=== PATIENT | female | born 1965 | race Caucasian/White ===

== ENCOUNTER → 2016-11-22 | Outpatient (CLI) | payer BC ==
--- NOTE | 2016-11-26 07:14 | MM ---
Reason for exam: screening (asymptomatic). Last mammogram was performed 1 year and 9 months ago. Physical Findings: A clinical breast exam by your physician is recommended on an annual basis and results should be correlated with mammographic findings. MG Screening Mammo w CAD Bilateral CC and MLO view(s) were taken. Prior study comparison: February 18, 2015, bilateral MG screening mammo w CAD. January 14, 2014, bilateral digital screening mammo w/CAD. October 23, 2011, bilateral digital screening mammo w/CAD. The breast tissue is heterogeneously dense. This may lower the sensitivity of mammography. Previous mammotome biopsy in the left breast. No significant changes when compared with prior studies. ASSESSMENT: Negative, BI-RAD 1 RECOMMENDATION: Routine screening mammogram of both breasts in 1 year.
== END | disposition home or self-care (01) ==
LOC: RADMAMWWP 16:03
PROVIDERS: ATTEND Family Medicine
DX: Z12.31 Encounter for screening mammogram for malignant neoplasm of breast (principal)

== ENCOUNTER → 2018-03-18 | Outpatient (CLI) | payer BC | END | disposition home or self-care (01) | LOC: LABWHC1 16:43 | PROVIDERS: ATTEND Family Medicine | DX: R53.83 Other fatigue (principal) | CPT/HCPCS: 36415; 84482; 86376 ==

== ENCOUNTER → 2018-04-18 | Outpatient (CLI) | payer BC ==
--- NOTE | 2018-04-18 09:18 | US ---
EXAMINATION TYPE: US transvaginal DATE OF EXAM: 04/18/2018 COMPARISON: NONE CLINICAL HISTORY: R10.9 abdominal pain, R10.2 pelvic pain. TECHNIQUE: . Transvaginal sonographic images were acquired. Date of LMP: About 8 months ago EXAM MEASUREMENTS: Uterus: 9.7 x 5.6 x 5.7 cm Endometrial Stripe: 0.6 cm Right Ovary: 3.9 x 2.3 x 2.3 cm Left Ovary: 2.7 x 2.1 x 1.9 cm 1. Uterus: Anteverted Heterogeneous. Two probable well-circumscribed fibroids, largest measuring 2 .4 x 2.1 x 1.7 cm. Additional smaller leiomyomas are suspected that are less well circumscribed. 2. Endometrium: wnl 3. Right Ovary: Two follicles visualized, largest measuring 2.0 x 1.7 x 1.5 cm 4. Left Ovary: Partially obscured by bowel gas, visualized portions wnl 5. Bilateral Adnexa: wnl 6. Posterior cul-de-sac: wnl IMPRESSION: 1. No endometrial thickening. 2. Numerous uterine leiomyomas, the largest measuring 2.4 cm and appearing intramural.
--- NOTE | 2018-04-18 09:45 | US ---
EXAMINATION TYPE: US abdomen complete DATE OF EXAM: 04/18/2018 COMPARISON: NONE CLINICAL HISTORY: R10.9 abdominal pain, R10.2 pelvic pain. EXAM MEASUREMENTS: Liver Length: 14.2 cm Gallbladder Wall: 0.2 cm CBD: 0.6 cm Spleen: 6.6 cm Right Kidney: 10.3 x 4.3 x 6.2 cm Left Kidney: 11.3 x 5.2 x 4.9 cm Pancreas: Partially obscured by bowel gas, visualized portions appear wnl Liver: wnl Gallbladder: wnl Evidence for sonographic Moon's sign: No CBD: Measuring upper limits of normal. Spleen: wnl Right Kidney: No hydronephrosis or masses seen Left Kidney: No hydronephrosis or masses seen Upper IVC: wnl Abd Aorta: wnl The liver is homogenous. The intrahepatic portion of the IVC and proximal abdominal aorta are within normal limits. There is no evidence of cholelithiasis. Common bile duct is measuring upper limits of normal. The visualized portions of the pancreas are homogenous. The spleen is unremarkable. Kid neys are symmetric and free of hydronephrosis. No renal lesions are seen. IMPRESSION: No sonographic evidence of cholelithiasis or acute cholecystitis. Common bile duct is upp er limits of normal and HIDA scan could be performed with CCK if there is clinical concern for biliar y dyskinesia or chronic cholecystitis.
--- NOTE | 2018-04-22 07:08 | MM ---
Reason for exam: screening (asymptomatic). Last mammogram was performed 1 year and 5 months ago. Physical Findings: A clinical breast exam by your physician is recommended on an annual basis and results should be correlated with mammographic findings. MG 3D Screening Mammo W/Cad Bilateral CC and MLO view(s) were taken. Prior study comparison: November 22, 2016, bilateral MG screening mammo w CAD. February 18, 2015, bilateral MG screening mammo w CAD. The breast tissue is heterogeneously dense. This may lower the sensitivity of mammography. There is chronic nodularity bilaterally. There is no discrete abnormality. ASSESSMENT: Benign, BI-RAD 2 RECOMMENDATION: Routine screening mammogram of both breasts in 1 year.
== END | disposition home or self-care (01) ==
LOC: RADUSWWP 06:51
PROVIDERS: ATTEND Family Medicine
DX: Z12.31 Encounter for screening mammogram for malignant neoplasm of breast (principal); D25.9 Leiomyoma of uterus, unspecified; R10.9 Unspecified abdominal pain
CPT/HCPCS: 76700; 76830; 77063; 77067

== ENCOUNTER → 2018-05-24 | Outpatient (CLI) | payer BC ==
[2018-05-24 11:30] LABS: ALT 46 U/L (9-52); AST 28 U/L (14-36); Albumin 4.2 g/dL (3.5-5.0); Alkaline Phosphatase 52 U/L (38-126); Anion Gap 7 mmol/L; Blood Urea Nitrogen 10 mg/dL (7-17); Carbon Dioxide 24 mmol/L (22-30); Chloride 109 mmol/L (98-107); Glucose 104 mg/dL (74-99); Potassium 4.8 mmol/L (3.5-5.1); Sodium 140 mmol/L (137-145); Total Bilirubin 0.3 mg/dL (0.2-1.3); Total Protein 6.5 g/dL (6.3-8.2)
[2018-05-24 11:57] LABS: Basophils % (A) 0 %; Eosinophils # (A) 0.1 k/uL (0-0.7); Eosinophils % (A) 1 %; HCT 43.9 % (34.0-46.0); HGB 14.7 gm/dL (11.4-16.0); Lymphocytes # (A) 1.6 k/uL (1.0-4.8); Lymphocytes % (A) 16 %; MCH 31.5 pg (25.0-35.0); MCHC 33.4 g/dL (31.0-37.0); MCV 94.4 fL (80.0-100.0); Mean Platelet Volume 7.3; Monocytes # (A) 0.4 k/uL (0-1.0); Monocytes % (A) 4 %; Neutrophils # (A) 7.5 k/uL (1.3-7.7); Neutrophils % (A) 78 %; Platelet Count 249 k/uL (150-450); RBC 4.65 m/uL (3.80-5.40); RDW 13.3 % (11.5-15.5); WBC 9.7 k/uL (3.8-10.6)
[2018-05-24 17:06] LABS: Progesterone 0.6 ng/mL
== END | disposition home or self-care (01) ==
LOC: LABWHC1 10:39
PROVIDERS: ATTEND Family Medicine
DX: N92.6 Irregular menstruation, unspecified (principal)
CPT/HCPCS: 36415; 80053; 82672; 84144; 84146; 85025

== ENCOUNTER 2019-09-22 17:23 | Emergency (ER) | payer BC ==
[2019-09-22] MEDS ORDERED: SODIUM CHLORIDE 0.9% 1,000 ML IV ONE (17:55)
--- NOTE | 2019-09-22 17:59 | ED ---
Abdominal Pain HPI - General Chief Complaint: Abdominal Pain Stated Complaint: Poss bowel obstruction Time Seen by Provider: 09/22/19 17:35 Source: patient Mode of arrival: ambulatory Limitations: no limitations - History of Present Illness Initial Comments: 54-year-old female presenting for constipation x 3 weeks. Patient states that she has been constipated for 3 weeks. She states she has only had a small amount of stool approximately 3 days ago. Patient denies vomiting. Patient states she has abdominal pressure and distention. Patient states she is also struggling with chronic low back pain. She states she had an injection today of a corticosteroid in order to control the pain. Patient denies taking opioids for chronic pain. Denies falls. Patient states she is not drinking any water today and has not urinated. Patient denies any changes in urination prior to this. Patient has a weakness of the lower extremities or loss of sensation. Patient denies any loss of bowel control, IV drug use, or fevers. Patient denies upper abdominal pain. Patient denies any other complaints, denies chest pain shortness of breath. Upon arrival patient appears well no signs of acute distress. - Related Data Previous Rx's Medication Instructions Recorded Glycerin Adult Suppository 1 each RECTAL DAILY PRN 5 Days #5 09/22/19 supp Polyethylene Glycol 3350 [Miralax] 17 gm PO DAILY 7 Days #7 packet 09/22/19 Allergies Allergy/AdvReac Type Severity Reaction Status Date / Time codeine Allergy Confusion Verified 09/22/19 17:33 tetracycline Allergy Anaphylaxis Verified 09/22/19 17:33 Review of Systems ROS Statement: Those systems with pertinent positive or pertinent negative responses have been documented in the HPI. ROS Other: All systems not noted in ROS Statement are negative. Past Medical History Past Medical History: No Reported History History of Any Multi-Drug Resistant Organisms: None Reported Past Surgical History: Tonsillectomy Additional Past Surgical History / Comment(s): sinus surgery Past Psychological History: No Psychological Hx Reported Smoking Status: Former smoker Past Alcohol Use History: None Reported Past Drug Use History: None Reported General Exam - General Exam Comments Initial Comments: General: The patient is awake and alert, in no distress. Eye: Pupils are equal, round and reactive to light, extra-ocular movements are intact. No nystagmus. There is normal conjunctiva bilaterally. No signs of icterus. Ears, nose, mouth and throat: There are moist mucous membranes and no oral lesions. Neck: The neck is supple, there is no tenderness or JVD. Cardiovascular: There is a regular rate and rhythm. No murmur, rub or gallop is appreciated. Respiratory: Lungs are clear to auscultation, respirations are non-labored, breath sounds are equal. No wheezes, stridor, rales, or rhonchi. Gastrointestinal: Mild abdominal distention with diffuse mild abdominal pain abdomen without masses or organomegaly noted. There is no rebound or guarding present. No CVA tenderness. Bowel sounds are unremarkable, active. Normal rectal tone no stool ball appreciated on rectal exam. No blood. Musculoskeletal: Normal inspection of the cervical thoracic and lumbar spine. No redness. No midline tenderness. Normal ROM, no tenderness. Strength 5/5. Sensation intact. Radial pulses equal bilaterally 2+. Neurological: A&O x 3. CN II-XII intact grossly, There are no obvious motor or sensory deficits. Coordination appears grossly intact. Speech is normal. Skin: Skin is warm and dry and no rashes or lesions are noted. Psychiatric: Cooperative, appropriate mood & affect, normal judgment. Limitations: no limitations Course Vital Signs 09/22/19 09/22/19 17:27 20:11 Temperature 99.2 F Pulse Rate 120 H 95 Respiratory 18 18 Rate Blood Pressure 152/96 138/80 O2 Sat by Pulse 96 99 Oximetry Medical Decision Making - Medical Decision Making 54-year-old female presenting for constipation. No large bowel movement in 3 weeks. Patient significant stool retention on KUB no obstruction. Patient has no history of vomiting. Patient does not appear to have acute abdomen. Laboratory studies stable there is mild leukocytosis noted. Patient is given 3 enemas- per request with BM with last two. Patient has no blood in stool. Patient requesting discharge. Patient will be discharged with miralax and glycerine suppositories. Discussed increasing fluids and dietary fiber. Patient is to f/u with PCP as well as obtain a solar thermal technician as seen fit by PCP. Re turn parameters discussed. Patient verbalized understanding and was discharged appearing well. - Lab Data Result diagrams: 09/22/19 17:47 09/22/19 17:47 Lab Results 09/22/19 09/22/19 09/22/19 Range/Units 17:47 17:47 17:47 WBC 14.0 H (3.8-10.6) k/uL RBC 4.89 (3.80-5.40) m/uL Hgb 15.8 (11.4-16.0) gm/dL Hct 45.4 (34.0-46.0) % MCV 92.8 (80.0-100.0) fL MCH 32.3 (25.0-35.0) pg MCHC 34.8 (31.0-37.0) g/dL RDW 12.5 (11.5-15.5) % Plt Count 237 (150-450) k/uL Neutrophils % 80 % Lymphocytes % 12 % Monocytes % 6 % Eosinophils % 0 % Basophils % 0 % Neutrophils # 11.2 H (1.3-7.7) k/uL Lymphocytes # 1.7 (1.0-4.8) k/uL Monocytes # 0.8 (0-1.0) k/uL Eosinophils # 0.0 (0-0.7) k/uL Basophils # 0.1 (0-0.2) k/uL Sodium 137 (137-145) mmol/L Potassium 4.1 (3.5-5.1) mmol/L Chloride 99 (98-107) mmol/L Carbon Dioxide 31 H (22-30) mmol/L Anion Gap 7 mmol/L BUN 15 (7-17) mg/dL Creatinine 0.80 (0.52-1.04) mg/dL Est GFR (CKD-EPI)AfAm >90 (>60 ml/min/1.73 sqM) Est GFR (CKD-EPI)NonAf 85 (>60 ml/min/1.73 sqM) Glucose 139 H (74-99) mg/dL Plasma Lactic Acid Reuben 1.1 (0.7-2.0) mmol/L Calcium 10.5 H (8.4-10.2) mg/dL Total Bilirubin 0.8 (0.2-1.3) mg/dL AST 33 (14-36) U/L ALT 46 (9-52) U/L Alkaline Phosphatase 72 (38-126) U/L Total Protein 7.8 (6.3-8.2) g/dL Albumin 4.9 (3.5-5.0) g/dL Amylase 46 (30-110) U/L Lipase 138 (23-300) U/L Urine Color Urine Appearance (Clear) Urine pH (5.0-8.0) Ur Specific [place] (1.001-1.035) Urine Protein (Negative) Urine Glucose (UA) (Negative) Urine Ketones (Negative) Urine Blood (Negative) Urine Nitrite (Negative) Urine Bilirubin (Negative) Urine Urobilinogen (<2.0) mg/dL Ur Leukocyte Esterase (Negative) 09/22/19 Range/Units 18:11 WBC (3.8-10.6) k/uL RBC (3.80-5.40) m/uL Hgb (11.4-16.0) gm/dL Hct (34.0-46.0) % MCV (80.0-100.0) fL MCH (25.0-35.0) pg MCHC (31.0-37.0) g/dL RDW (11.5-15.5) % Plt Count (150-450) k/uL Neutrophils % % Lymphocytes % % Monocytes % % Eosinophils % % Basophils % % Neutrophils # (1.3-7.7) k/uL Lymphocytes # (1.0-4.8) k/uL Monocytes # (0-1.0) k/uL Eosinophils # (0-0.7) k/uL Basophils # (0-0.2) k/uL Sodium (137-145) mmol/L Potassium (3.5-5.1) mmol/L Chloride (98-107) mmol/L Carbon Dioxide (22-30) mmol/L Anion Gap mmol/L BUN (7-17) mg/dL Creatinine (0.52-1.04) mg/dL Est GFR (CKD-EPI)AfAm (>60 ml/min/1.73 sqM) Est GFR (CKD-EPI)NonAf (>60 ml/min/1.73 sqM) Glucose (74-99) mg/dL Plasma Lactic Acid Reuben (0.7-2.0) mmol/L Calcium (8.4-10.2) mg/dL Total Bilirubin (0.2-1.3) mg/dL AST (14-36) U/L ALT (9-52) U/L Alkaline Phosphatase (38-126) U/L Total Protein (6.3-8.2) g/dL Albumin (3.5-5.0) g/dL Amylase (30-110) U/L Lipase (23-300) U/L Urine Color Colorless Urine Appearance Clear (Clear) Urine pH 6.5 (5.0-8.0) Ur Specific [place] 1.003 (1.001-1.035) Urine Protein Negative (Negative) Urine Glucose (UA) Negative (Negative) Urine Ketones Negative (Negative) Urine Blood Negative (Negative) Urine Nitrite Negative (Negative) Urine Bilirubin Negative (Negative) Urine Urobilinogen <2.0 (<2.0) mg/dL Ur Leukocyte Esterase Negative (Negative) Disposition Clinical Impression: Constipation Disposition: HOME SELF-CARE Condition: Good Instructions (If sedation given, give patient instructions): Constipation (ED), High Fiber Diet (ED) Additional Instructions: Please use medication as discussed. Please follow-up with family doctor in the next 2 days of symptoms have not improved. Please return to emergency room if the symptoms increase or worsen or for any other concerns. Prescriptions: Glycerin Adult Suppository 1 each RECTAL DAILY PRN 5 Days #5 supp PRN Reason: Constipation Polyethylene Glycol 3350 [Miralax] 17 gm PO DAILY 7 Days #7 packet Is patient prescribed a controlled substance at d/c from ED?: No Referrals: Stephany Winter MD [Primary Care Provider] - 1-2 days Time of Disposition: 22:41
[2019-09-22 18:00] LABS: Basophils # (A) 0.1 k/uL (0-0.2); Basophils % (A) 0 %; Eosinophils % (A) 0 %; HCT 45.4 % (34.0-46.0); HGB 15.8 gm/dL (11.4-16.0); Lymphocytes # (A) 1.7 k/uL (1.0-4.8); Lymphocytes % (A) 12 %; MCH 32.3 pg (25.0-35.0); MCHC 34.8 g/dL (31.0-37.0); MCV 92.8 fL (80.0-100.0); Mean Platelet Volume 6.7; Monocytes # (A) 0.8 k/uL (0-1.0); Monocytes % (A) 6 %; Neutrophils # (A) 11.2 k/uL (1.3-7.7); Neutrophils % (A) 80 %; Platelet Count 237 k/uL (150-450); RBC 4.89 m/uL (3.80-5.40); RDW 12.5 % (11.5-15.5)
[2019-09-22] MEDS ORDERED: SODIUM CHLORIDE 0.9% 1,000 ML IV SCH (18:00)
[2019-09-22 18:11] LABS: ALT 46 U/L (9-52); AST 33 U/L (14-36); African American GFR (CKD) >90 (>60 ml/min/1.73 sqM); Albumin 4.9 g/dL (3.5-5.0); Alkaline Phosphatase 72 U/L (38-126); Amylase 46 U/L (30-110); Anion Gap 7 mmol/L; Blood Urea Nitrogen 15 mg/dL (7-17); Calcium 10.5 mg/dL (8.4-10.2); Carbon Dioxide 31 mmol/L (22-30); Chloride 99 mmol/L (98-107); Glucose 139 mg/dL (74-99); Potassium 4.1 mmol/L (3.5-5.1); Sodium 137 mmol/L (137-145); Total Bilirubin 0.8 mg/dL (0.2-1.3); Total Protein 7.8 g/dL (6.3-8.2)
[2019-09-22 18:32] LABS: Appearance,Urine Clear (Clear); Bilirubin,Urine Negative (Negative); Blood,Urine Negative (Negative); Color,Urine Colorless; Glucose,Urine (UA) Negative (Negative); Ketones,Urine Negative (Negative); Leukocyte Esterase,Urine Negative (Negative); Nitrite,Urine Negative (Negative); PH, Urine 6.5 (5.0-8.0); Protein,Urine Negative (Negative); Specific Gravity,Urine 1.003 (1.001-1.035); Urobilinogen,Urine <2.0 mg/dL (<2.0)
--- NOTE | 2019-09-22 19:16 | XR ---
EXAMINATION TYPE: XR KUB views DATE OF EXAM: 09/22/2019 6:03 PM CLINICAL HISTORY: No bowel movement for 3 days TECHNIQUE: 2 upright views COMPARISON: None. FINDINGS: Scattered gas is seen in non-distended small bowel loops. Gas and fecal material is seen in non-distended colon. Excessive descending and sigmoid stool volume noted. There is no visceromegaly, pneumoperitoneum, or abnormal calcification appreciated. The lung bases are clear and the osseous structures are intact. IMPRESSION: No acute radiographic process.
[2019-09-22] MEDS ORDERED: MORPHINE SULFATE 4 MG/ML SYRINGE IVP STA (20:25)
[2019-09-22 23:09] VITALS: BP 132/71; PULSE 79; RESP 19; TEMP 97.9
== END 2019-09-22 23:09 | disposition home or self-care (01) ==
LOC: EC 17:23
DX: K59.00 Constipation, unspecified (principal); D72.829 Elevated white blood cell count, unspecified; G89.29 Other chronic pain; M54.5 Low back pain; Z87.891 Personal history of nicotine dependence; Z88.1 Allergy status to other antibiotic agents; Z88.5 Allergy status to narcotic agent
CPT/HCPCS: 36415; 80053; 82150; 83605; 83690; 85025; 81003; 74018; 99284; 96374; 96361 ×5; J2270

== ENCOUNTER 2019-09-24 08:52 | Emergency (ER) | payer BC ==
[2019-09-24 08:58] VITALS: TEMP 99.1
[2019-09-24 09:11] LABS: Glucose,Whole Blood 159 mg/dL (75-99)
[2019-09-24] MEDS ORDERED: diphenhydrAMINE 50 MG/ML 1 ML VIAL IM STA (09:13)
[2019-09-24] MEDS ORDERED: FAMOTIDINE 20 MG TAB PO STA (09:13)
[2019-09-24] MEDS ORDERED: LORazepam 1 MG TAB PO STA ×2 (09:13→10:37)
--- NOTE | 2019-09-24 09:17 | ED ---
General Adult HPI - General Chief complaint: Allergic Reaction Stated complaint: Hyperglycemia Time Seen by Provider: 09/24/19 08:59 Source: patient, RN notes reviewed Mode of arrival: ambulatory Limitations: no limitations - History of Present Illness Initial comments: 54-year-old female presents to the emergency department for ALLERGIC reaction. Patient states that over the past 2 days she was sinus constipation. States she was started on MiraLAX. Patient also had received an injection of steroids prior to coming to the emergency department for a pinched nerve. Patient states that since she has received the MiraLAX in the steroids she has had burning of her skin. States that she feels like she has a dry tongue but denies swelling. Says is she has had hives on and off. Patient is very anxious. She denies fevers or chills. She denies abdominal pain. Patient has no other complaints at this time including shortness of breath, chest pain, abdominal pain, nausea or vomiting, headache, or visual changes. - Related Data Home Medications Medication Instructions Recorded Confirmed Calcium Carbonate [Calcium] 600 mg PO DAILY 09/24/19 09/24/19 Ibuprofen [Motrin Ib] 600 mg PO TID PRN 09/24/19 09/24/19 Magnesium 200 mg PO HS 09/24/19 09/24/19 [place]-3 Fatty Acids/Fish Oil [Fish 1 cap PO DAILY 09/24/19 09/24/19 Oil 1,000 mg Softgel] Previous Rx's Medication Instructions Recorded Nystatin 100,000 Unit/ml Susp 5 ml PO QID #100 ml 09/24/19 [Mycostatin Oral Susp] Allergies Allergy/AdvReac Type Severity Reaction Status Date / Time tetracycline Allergy Anaphylaxis Verified 09/24/19 10:34 codeine AdvReac Confusion Verified 09/24/19 10:34 Review of Systems ROS Statement: Those systems with pertinent positive or pertinent negative responses have been documented in the HPI. ROS Other: All systems not noted in ROS Statement are negative. Past Medical History Past Medical History: No Reported History History of Any Multi-Drug Resistant Organisms: None Reported Past Surgical History: Tonsillectomy Additional Past Surgical History / Comment(s): sinus surgery Past Psychological History: No Psychological Hx Reported Smoking Status: Former smoker Past Alcohol Use History: None Reported Past Drug Use History: None Reported General Exam Limitations: no limitations General appearance: alert, anxious Head exam: Present: atraumatic, normocephalic, normal inspection Eye exam: Present: normal appearance, PERRL, EOMI. Absent: scleral icterus, conjunctival injection, periorbital swelling ENT exam: Present: normal exam, normal oropharynx (Tongue appears within normal limits. There is some white plaque on the dorsum of the tongue.), mucous membranes moist, TM's normal bilaterally, normal external ear exam Neck exam: Present: normal inspection. Absent: tenderness, meningismus, lymphadenopathy Respiratory exam: Present: normal lung sounds bilaterally. Absent: respiratory distress, wheezes, rales, rhonchi, stridor Cardiovascular Exam: Present: regular rate, normal rhythm, normal heart sounds. Absent: systolic murmur, diastolic murmur, rubs, gallop, clicks GI/Abdominal exam: Present: soft, normal bowel sounds. Absent: distended, tenderness, guarding, rebound, rigid Neurological exam: Present: alert Skin exam: Present: warm, dry, intact, normal color. Absent: rash Course Vital Signs 09/24/19 08:53 Temperature 99.1 F Pulse Rate 110 H Respiratory 18 Rate Blood Pressure 149/95 O2 Sat by Pulse 98 Oximetry Medical Decision Making - Medical Decision Making Upon presentation patient is very anxious. She is appearing to have possibly an ALLERGIC reaction for MiraLAX and she has had burning skin since taking this as well as dry mucous membranes. States this has been going on consistently for 3 days. Patient initially uncooperative to medications offered. I did offer Benadryl, she initially refused stating this makes her mouth dry. She states Claritin also makes her mouth dry. She stated she did not want Pepcid she had never had before. Stated she did not want steroids because she had that 2 days ago. I discussed with patient that to help her ALLERGIC reaction and we'll need to give her something. Patient does agree to Benadryl if we allow her to drink water with this. She also agrees to Pepcid. Due to patient's anxiety and shaking in the exam room she was given Ativan which she agreed to. Patient was also concerned about hyperglycemia. Checked her blood sugar at home which was 204. On recheck here to the emergency department glucose is 159. When given her medications patient states that the cold water made her esophagus spasm and she is concerned about her breathing. I did do soft tissue neck x-ray which was unremarkable, no abnormalities. I did a chest x-ray as well which was unremarkable. Patient is stating she can't swallow without coughing however is noted to be lying flat swallowing saliva without any difficulty. Patient is very anxious. I suspect that this is contributing to her physical symptoms. However patient does have some white on the tongue. Patient will be treated with a nystatin for possible early thrush. Again there is no angioedema or evidence of edema of the tongue. Patient is nontoxic on examination. Patient is requesting discharge and medication to help her sleep when she gets home. I did explain to patient that I cannot give a prescription for sleeping pills however I will give her another Ativan here. is driving her home. There is no evidence for respiratory distress, patient lying flat resting comfortably, and no evidence for angioedema or anaphylaxis. Patient has an appointment with her primary care provider tomorrow. She will return if she has any worsening symptoms prior to then. - Lab Data Lab Results 09/24/19 Range/Units 09:09 POC Glucose (mg/dL) 159 H (75-99) mg/dL POC Glu Hot Dog Vendor ID Arline Beltran Disposition Clinical Impression: Allergic reaction Disposition: HOME SELF-CARE Condition: Good Instructions (If sedation given, give patient instructions): General Allergic Reaction (ED) Additional Instructions: Please use nystatin as directed. Follow up with primary care in 1-2 days. Ret urn to the emergency department if you have any worsening symptoms. Prescriptions: Nystatin 100,000 Unit/ml Susp [Mycostatin Oral Susp] 5 ml PO QID #100 ml Is patient prescribed a controlled substance at d/c from ED?: No Referrals: Stephany Winter MD [Primary Care Provider] - 1-2 days Time of Disposition: 10:41
--- NOTE | 2019-09-24 10:21 | XR ---
EXAMINATION TYPE: XR soft tissue neck DATE OF EXAM: 09/24/2019 COMPARISON: NONE HISTORY: 54 year-old female shortness of breath and pain TECHNIQUE: 2 views FINDINGS: Epiglottis is normal as are the prevertebral soft tissues. Nasal pharyngeal and oropharyngeal airways are patent. No subglottic airway narrowing. IMPRESSION: No specific abnormality seen on the soft tissues of the neck.
--- NOTE | 2019-09-24 10:22 | XR ---
EXAMINATION TYPE: XR chest 2V DATE OF EXAM: 09/24/2019 COMPARISON: None HISTORY: 54-year-old female with shortness of breath TECHNIQUE: PA and lateral views FINDINGS: The cardiomediastinal silhouette, aorta, and pulmonary vasculature are within normal limits. There ma y be some mild central peribronchial cuffing. Mild biapical pleural-parenchymal scarring. Otherwise, lungs and pleural spaces are clear. IMPRESSION: Mild central peribronchial cuffing may reflect bronchitis or asthma. Otherwise, no acute cardiopulmon anyi process.
[2019-09-24 11:12] VITALS: BP 136/76; PULSE 81; RESP 16
== END 2019-09-24 11:10 | disposition home or self-care (01) ==
LOC: EC 08:52
DX: L98.8 Other specified disorders of the skin and subcutaneous tissue (principal); T47.4X5A Adverse effect of other laxatives, initial encounter; T38.0X5A Adverse effect of glucocorticoids and synthetic analogues, initial encounter; K13.29 Other disturbances of oral epithelium, including tongue; F41.9 Anxiety disorder, unspecified; L50.9 Urticaria, unspecified; Z87.891 Personal history of nicotine dependence; Z88.1 Allergy status to other antibiotic agents; Z88.5 Allergy status to narcotic agent
CPT/HCPCS: 36415; 70360; 71046; 99283; 96372; J1200

== ENCOUNTER 2019-09-25 16:16 | Emergency (ER) | payer BC ==
[2019-09-25 16:26] VITALS: RESP 18
[2019-09-25] MEDS ORDERED: PANTOPRAZOLE 40 MG/10 ML VIAL IVP STA (16:59)
[2019-09-25] MEDS ORDERED: SODIUM CHLORIDE 0.9% 1,000 ML IV STA (16:59)
--- NOTE | 2019-09-25 17:05 | ED ---
General Adult HPI - General Chief complaint: Abdominal Pain Stated complaint: Constipation Time Seen by Provider: 09/25/19 16:46 Source: patient, family, RN notes reviewed Mode of arrival: ambulatory Limitations: no limitations - History of Present Illness Initial comments: Patient is a pleasant 54-year-old female presenting to the emergency department with concerns with constipation. Patient occasionally has some chronic constipation. Symptoms have been worse for the past few weeks. Patient was here a week ago and had enemas. Patient did have some bowel movements within was however has not had any since that time. Patient states she has had sore throat for several months now. Patient states she was diagnosed with reflux. Patient took omeprazole for one day however has not taken other than that. Patient does have chronic cystitis and frequent bladder spasms. Patient questions today if she had an episode of urinary incontinence. Patient has not been able to urinate since that time. Patient states she has pressure diffusely through her abdomen that is uncomfortable but not severe. - Related Data Home Medications Medication Instructions Recorded Confirmed Calcium Carbonate [Calcium] 600 mg PO DAILY 09/24/19 09/24/19 Ibuprofen [Motrin Ib] 600 mg PO TID PRN 09/24/19 09/24/19 Magnesium 200 mg PO HS 09/24/19 09/24/19 [place]-3 Fatty Acids/Fish Oil [Fish 1 cap PO DAILY 09/24/19 09/24/19 Oil 1,000 mg Softgel] Previous Rx's Medication Instructions Recorded Nystatin 100,000 Unit/ml Susp 5 ml PO QID #100 ml 09/24/19 [Mycostatin Oral Susp] Pantoprazole [Protonix] 1 tab PO DAILY #30 tablet. 09/25/19 Allergies Allergy/AdvReac Type Severity Reaction Status Date / Time tetracycline Allergy Anaphylaxis Verified 09/24/19 10:34 codeine AdvReac Confusion Verified 09/24/19 10:34 Review of Systems ROS Statement: Those systems with pertinent positive or pertinent negative responses have been documented in the HPI. ROS Other: All systems not noted in ROS Statement are negative. Constitutional: Denies: fever Eyes: Denies: eye pain ENT: Reports: throat pain. Denies: ear pain Respiratory: Denies: cough, dyspnea Cardiovascular: Denies: chest pain Endocrine: Denies: fatigue Gastrointestinal: Reports: as per HPI, constipation. Denies: vomiting Genitourinary: Reports: as per HPI Musculoskeletal: Denies: back pain Skin: Denies: rash Neurological: Denies: weakness Psychiatric: Reports: anxiety (Patient has chronic anxiety) Past Medical History Past Medical History: No Reported History Additional Past Medical History / Comment(s): diverticulitis History of Any Multi-Drug Resistant Organisms: None Reported Past Surgical History: Tonsillectomy Additional Past Surgical History / Comment(s): sinus surgery Past Psychological History: No Psychological Hx Reported Smoking Status: Never smoker Past Alcohol Use History: None Reported Past Drug Use History: None Reported General Exam Limitations: no limitations General appearance: alert Head exam: Present: normocephalic Eye exam: Present: normal appearance, PERRL ENT exam: Present: other (Mild erythema/cobblestoning posterior pharynx) Neck exam: Present: normal inspection Respiratory exam: Present: normal lung sounds bilaterally Cardiovascular Exam: Present: normal rhythm, tachycardia Expanded Peripheral pulses: 2+: Posterior Tibialis (R), Posterior Tibialis (L), Dorsalis Pedis (R), Dorsalis Pedis (L) GI/Abdominal exam: Present: soft, tenderness (Mild diffuse tenderness), normal bowel sounds. Absent: distended, guarding, rebound, rigid, pulsatile mass Extremities exam: Present: normal inspection Neurological exam: Present: alert Psychiatric exam: Present: anxious Skin exam: Present: normal color Course Vital Signs 09/25/19 09/25/19 16:21 19:02 Temperature 98.3 F 97.5 F L Pulse Rate 125 H 85 Respiratory 18 18 Rate Blood Pressure 166/100 129/83 O2 Sat by Pulse 98 96 Oximetry Medical Decision Making - Medical Decision Making Patient reevaluated and feeling much better. Patient states protonix has resolved symptoms of the throat. Patient's and patient family updated on results and plan. They are agreeable to follow-up with GI. - Lab Data Result diagrams: 09/25/19 16:40 09/25/19 16:40 Lab Results 09/25/19 09/25/19 09/25/19 Range/Units 16:40 16:40 16:40 WBC 10.6 (3.8-10.6) k/uL RBC 4.94 (3.80-5.40) m/uL Hgb 15.7 (11.4-16.0) gm/dL Hct 46.3 H (34.0-46.0) % MCV 93.8 (80.0-100.0) fL MCH 31.8 (25.0-35.0) pg MCHC 33.9 (31.0-37.0) g/dL RDW 12.3 (11.5-15.5) % Plt Count 250 (150-450) k/uL Neutrophils % 77 % Lymphocytes % 16 % Monocytes % 6 % Eosinophils % 0 % Basophils % 1 % Neutrophils # 8.1 H (1.3-7.7) k/uL Lymphocytes # 1.7 (1.0-4.8) k/uL Monocytes # 0.6 (0-1.0) k/uL Eosinophils # 0.0 (0-0.7) k/uL Basophils # 0.1 (0-0.2) k/uL PT 10.6 (9.0-12.0) sec INR 1.0 (<1.2) APTT 21.5 L (22.0-30.0) sec Sodium 137 (137-145) mmol/L Potassium 3.7 (3.5-5.1) mmol/L Chloride 100 (98-107) mmol/L Carbon Dioxide 26 (22-30) mmol/L Anion Gap 11 mmol/L BUN 10 (7-17) mg/dL Creatinine 0.69 (0.52-1.04) mg/dL Est GFR (CKD-EPI)AfAm >90 (>60 ml/min/1.73 sqM) Est GFR (CKD-EPI)NonAf >90 (>60 ml/min/1.73 sqM) Glucose 147 H (74-99) mg/dL Calcium 9.9 (8.4-10.2) mg/dL Total Bilirubin 0.7 (0.2-1.3) mg/dL AST 36 (14-36) U/L ALT 55 H (9-52) U/L Alkaline Phosphatase 74 (38-126) U/L Total Protein 7.7 (6.3-8.2) g/dL Albumin 4.8 (3.5-5.0) g/dL Amylase 34 (30-110) U/L Lipase 196 (23-300) U/L Urine Color Urine Appearance (Clear) Urine pH (5.0-8.0) Ur Specific [place] (1.001-1.035) Urine Protein (Negative) Urine Glucose (UA) (Negative) Urine Ketones (Negative) Urine Blood (Negative) Urine Nitrite (Negative) Urine Bilirubin (Negative) Urine Urobilinogen (<2.0) mg/dL Ur Leukocyte Esterase (Negative) 09/25/19 Range/Units 19:44 WBC (3.8-10.6) k/uL RBC (3.80-5.40) m/uL Hgb (11.4-16.0) gm/dL Hct (34.0-46.0) % MCV (80.0-100.0) fL MCH (25.0-35.0) pg MCHC (31.0-37.0) g/dL RDW (11.5-15.5) % Plt Count (150-450) k/uL Neutrophils % % Lymphocytes % % Monocytes % % Eosinophils % % Basophils % % Neutrophils # (1.3-7.7) k/uL Lymphocytes # (1.0-4.8) k/uL Monocytes # (0-1.0) k/uL Eosinophils # (0-0.7) k/uL Basophils # (0-0.2) k/uL PT (9.0-12.0) sec INR (<1.2) APTT (22.0-30.0) sec Sodium (137-145) mmol/L Potassium (3.5-5.1) mmol/L Chloride (98-107) mmol/L Carbon Dioxide (22-30) mmol/L Anion Gap mmol/L BUN (7-17) mg/dL Creatinine (0.52-1.04) mg/dL Est GFR (CKD-EPI)AfAm (>60 ml/min/1.73 sqM) Est GFR (CKD-EPI)NonAf (>60 ml/min/1.73 sqM) Glucose (74-99) mg/dL Calcium (8.4-10.2) mg/dL Total Bilirubin (0.2-1.3) mg/dL AST (14-36) U/L ALT (9-52) U/L Alkaline Phosphatase (38-126) U/L Total Protein (6.3-8.2) g/dL Albumin (3.5-5.0) g/dL Amylase (30-110) U/L Lipase (23-300) U/L Urine Color Light Yellow Urine Appearance Clear (Clear) Urine pH 5.5 (5.0-8.0) Ur Specific [place] >1.050 H (1.001-1.035) Urine Protein Negative (Negative) Urine Glucose (UA) Negative (Negative) Urine Ketones 2+ H (Negative) Urine Blood Negative (Negative) Urine Nitrite Negative (Negative) Urine Bilirubin Negative (Negative) Urine Urobilinogen <2.0 (<2.0) mg/dL Ur Leukocyte Esterase Negative (Negative) - Radiology Data Radiology results: report reviewed (Computed tomography scan of the abdomen pelvis shows no acute process) Disposition Clinical Impression: Abdominal discomfort Disposition: HOME SELF-CARE Condition: Stable Instructions (If sedation given, give patient instructions): Acute Abdominal Pain (ED) Additional Instructions: Please do follow-up with your primary care physician in the beginning of the week for follow-up. Also follow-up with GI for further testing. Continue Protonix. Prescription has been sent to [facility] on . Prescriptions: Pantoprazole [Protonix] 1 tab PO DAILY #30 tablet.dr Is patient prescribed a controlled substance at d/c from ED?: No Referrals: Michela Reardon DO [Primary Care Provider] - 1-2 days Isabel Alex MD [STAFF PHYSICIAN] - 1-2 days Time of Disposition: 21:38
[2019-09-25 17:09] LABS: Basophils # (A) 0.1 k/uL (0-0.2); Basophils % (A) 1 %; Eosinophils % (A) 0 %; HCT 46.3 % (34.0-46.0); HGB 15.7 gm/dL (11.4-16.0); Lymphocytes # (A) 1.7 k/uL (1.0-4.8); Lymphocytes % (A) 16 %; MCH 31.8 pg (25.0-35.0); MCHC 33.9 g/dL (31.0-37.0); MCV 93.8 fL (80.0-100.0); Mean Platelet Volume 7.1; Monocytes # (A) 0.6 k/uL (0-1.0); Monocytes % (A) 6 %; Neutrophils # (A) 8.1 k/uL (1.3-7.7); Neutrophils % (A) 77 %; Platelet Count 250 k/uL (150-450); RBC 4.94 m/uL (3.80-5.40); RDW 12.3 % (11.5-15.5); WBC 10.6 k/uL (3.8-10.6)
[2019-09-25 17:18] LABS: ALT 55 U/L (9-52); AST 36 U/L (14-36); African American GFR (CKD) >90 (>60 ml/min/1.73 sqM); Albumin 4.8 g/dL (3.5-5.0); Alkaline Phosphatase 74 U/L (38-126); Amylase 34 U/L (30-110); Anion Gap 11 mmol/L; Blood Urea Nitrogen 10 mg/dL (7-17); Calcium 9.9 mg/dL (8.4-10.2); Carbon Dioxide 26 mmol/L (22-30); Chloride 100 mmol/L (98-107); Glucose 147 mg/dL (74-99); Potassium 3.7 mmol/L (3.5-5.1); Sodium 137 mmol/L (137-145); Total Bilirubin 0.7 mg/dL (0.2-1.3); Total Protein 7.7 g/dL (6.3-8.2)
[2019-09-25 17:24] LABS: Prothrombin Time 10.6 sec (9.0-12.0)
[2019-09-25] MEDS ORDERED: LORazepam 2 MG/ML INJ IV STA (17:29)
[2019-09-25 17:30] LABS: Partial Thromboplastin Time 21.5 sec (22.0-30.0)
--- NOTE | 2019-09-25 18:49 | CT ---
EXAMINATION TYPE: CT abdomen pelvis w con DATE OF EXAM: 09/25/2019 COMPARISON: None HISTORY: Abdominal pain, lower back pain CT DLP: 733.5 mGycm Automated exposure control for dose reduction was used. TECHNIQUE: Helical acquisition of images was performed from the lung bases through the pelvis. CONTRAST: Performed without Oral Contrast and with IV Contrast, patient injected with 100 mL of Isovue 300. FINDINGS: Lung bases are clear. There is no pleural effusion. Heart size is normal. There is no pericardial eff usion. Liver spleen pancreas appear normal. Bile ducts are not dilated. Spleen appears normal. There is no p ancreatic mass. There is no adrenal mass. Kidneys show satisfactory contrast opacification. There is no hydronephrosi s. Appendix appears normal. There is no retroperitoneal adenopathy. Bladder distends smoothly. There is no inguinal hernia. There is no free fluid in the pelvis. Uterus is anteverted. Lumbar spine is in tact. There is no compression fracture. Bony pelvis is intact. There is mild lumbar levoscoliosis. There is no paraspinal mass. There is no mesenteric edema. There is no ascites or free air. There is no sign of a bowel obstructio n. IMPRESSION: NEGATIVE CT SCAN OF THE ABDOMEN PELVIS. NORMAL APPENDIX.
[2019-09-25 19:52] LABS: Appearance,Urine Clear (Clear); Bilirubin,Urine Negative (Negative); Blood,Urine Negative (Negative); Color,Urine Light Yellow; Glucose,Urine (UA) Negative (Negative); Ketones,Urine 2+ (Negative); Leukocyte Esterase,Urine Negative (Negative); Nitrite,Urine Negative (Negative); PH, Urine 5.5 (5.0-8.0); Protein,Urine Negative (Negative); Urobilinogen,Urine <2.0 mg/dL (<2.0)
[2019-09-25 19:55] LABS: Specific Gravity,Urine >1.050 (1.001-1.035)
[2019-09-25 22:31] VITALS: BP 140/98; PULSE 107; TEMP 98.2
== END 2019-09-25 22:13 | disposition home or self-care (01) ==
LOC: EC 16:16
DX: K59.00 Constipation, unspecified (principal); R10.9 Unspecified abdominal pain; R00.0 Tachycardia, unspecified; F41.9 Anxiety disorder, unspecified; Z88.1 Allergy status to other antibiotic agents; Z88.5 Allergy status to narcotic agent; Z87.19 Personal history of other diseases of the digestive system
CPT/HCPCS: 36415; 80053; 82150; 83690; 85025; 85610; 85730; 81003; 74177; 99284; 96374; 96375; 96361 ×5; J2060; C9113; Q9967

== ENCOUNTER 2019-10-04 17:11 | Inpatient (IN) | payer BC ==
[2019-10-04] MEDS ORDERED: LORazepam 2 MG/ML INJ IM STA (18:27)
--- NOTE | 2019-10-04 18:31 | ED ---
General Adult HPI - General Chief complaint: Psychiatric Symptoms Stated complaint: Detox, Anxiety/mental health Time Seen by Provider: 10/04/19 17:42 Source: patient, family, police Mode of arrival: ambulatory Limitations: no limitations - History of Present Illness Initial comments: Dictation was produced using [employer] dictation software. please excuse any grammatical, word or spelling errors. Chief Complaint: 54-year-old female who is adamant that she is having Ativan withdrawal. History of Present Illness: 54-year-old female. She is well-known to emergency department for multiple recent visitations for the same complaints. She is accompanied by her significant other who reports that he is concerned patient is having a benzodiazepine withdrawal. Patient used to be on high doses of Ativan for the last 17 years. Her outpatient doctor has slowly been tapering her benzodiazepines. Patient states she's been feeling very uncomfortable. She states she saw a couple that she is contemplating suicide. Patient is noted to talk about how she will hurt herself. Patient states she does not want to be in her own skin. She does not have a detailed plan. The ROS documented in this emergency department record has been reviewed and confirmed by me. Those systems with pertinent positive or negative responses have been documented in the HPI. All other systems are other negative and/or noncontributory. PHYSICAL EXAM: General Impression: Alert and oriented x3, anxious HEENT: Normocephalic atraumatic, extra-ocular movements intact, pupils equal and reactive to light bilaterally, mucous membranes moist. Cardiovascular: Heart regular rate and rhythm, S1&S2 audible, no murmurs, rubs or gallops Chest: Lungs clear to auscultation bilaterally, no rhonchi, no wheeze, no rales Abdomen: Bowel sounds present, abdomen soft, non-tender, non-distended, no organomegaly Musculoskeletal: Pulses present and equal in all extremities, no peripheral edema Motor: no focal deficits noted Neurological: CN II-XII grossly intact, no focal motor or sensory deficits noted Skin: Intact with no visualized rashes Psych: Normal affect and mood ED course: 54-year-old female presents with suicidal ideation. She reports that she is having benzodiazepine withdrawal. Patient's heart rate is 110. Rest vital signs within acceptable limits. She is appears to be anxious at bedside. Physical examination does not show any findings to suggest severe withdrawal symptoms. Patient given some Ativan. She reports mild improvement of symptoms. Patient evaluated by EPS and we admitted to inpatient psychiatry. - Related Data Home Medications Medication Instructions Recorded Confirmed Calcium Carbonate [Calcium] 600 mg PO DAILY 09/24/19 09/24/19 Ibuprofen [Motrin Ib] 600 mg PO TID PRN 09/24/19 09/24/19 Magnesium 200 mg PO HS 09/24/19 09/24/19 [place]-3 Fatty Acids/Fish Oil [Fish 1 cap PO DAILY 09/24/19 09/24/19 Oil 1,000 mg Softgel] Previous Rx's Medication Instructions Recorded Nystatin 100,000 Unit/ml Susp 5 ml PO QID #100 ml 09/24/19 [Mycostatin Oral Susp] Pantoprazole [Protonix] 1 tab PO DAILY #30 tablet. 09/25/19 Allergies Allergy/AdvReac Type Severity Reaction Status Date / Time tetracycline Allergy Anaphylaxis Verified 10/04/19 17:32 codeine AdvReac Confusion Verified 10/04/19 17:32 Review of Systems ROS Statement: Those systems with pertinent positive or pertinent negative responses have been documented in the HPI. ROS Other: All systems not noted in ROS Statement are negative. Past Medical History Past Medical History: No Reported History Additional Past Medical History / Comment(s): diverticulitis, interstital cystitis History of Any Multi-Drug Resistant Organisms: None Reported Past Surgical History: Tonsillectomy Additional Past Surgical History / Comment(s): sinus surgery Past Psychological History: Anxiety Smoking Status: Never smoker Past Alcohol Use History: None Reported Past Drug Use History: None Reported General Exam Limitations: no limitations Course Vital Signs 10/04/19 17:20 Temperature 97.8 F Pulse Rate 110 H Respiratory 24 Rate Blood Pressure 134/97 O2 Sat by Pulse 100 Oximetry Disposition Clinical Impression: Suicidal behavior Disposition: ADMITTED IP TO THIS HOSP Referrals: Michela Reardon DO [Primary Care Provider] - 1-2 days Decision Time: 19:11
[2019-10-04 19:13] LABS: Basophils % (A) 1 %; Eosinophils % (A) 1 %; HGB 15.9 gm/dL (11.4-16.0); Lymphocytes # (A) 1.7 k/uL (1.0-4.8); Lymphocytes % (A) 19 %; MCH 31.4 pg (25.0-35.0); MCHC 33.2 g/dL (31.0-37.0); MCV 94.8 fL (80.0-100.0); Mean Platelet Volume 6.7; Monocytes % (A) 6 %; Neutrophils # (A) 6.1 k/uL (1.3-7.7); Neutrophils % (A) 70 %; Platelet Count 265 k/uL (150-450); RBC 5.06 m/uL (3.80-5.40); RDW 12.6 % (11.5-15.5); WBC 8.7 k/uL (3.8-10.6)
[2019-10-04 19:14] LABS: Basophils # (A) 0.1 k/uL (0-0.2); Eosinophils # (A) 0.1 k/uL (0-0.7); Monocytes # (A) 0.5 k/uL (0-1.0)
[2019-10-04 19:25] LABS: Amphetamine Screen,Urine Not Detected (NotDetected); Barbiturate Screen,Urine Not Detected (NotDetected); Benzodiazepines Screen,Urine Detected (NotDetected); Cocaine Screen,Urine Not Detected (NotDetected); Methadone Screen, Urine Not Detected (NotDetected); Opiate Screen,Urine Not Detected (NotDetected); Oxycodone Screen, Urine Not Detected (NotDetected); Phencyclidine Screen,Urine Not Detected (NotDetected); Tricyclic Antidepressant,Urine Not Detected (NotDetected); Urn Cannabinoid Scrn Not Detected (NotDetected)
[2019-10-04 19:25] LABS: African American GFR (CKD) >90 (>60 ml/min/1.73 sqM); Anion Gap 9 mmol/L; Blood Urea Nitrogen 14 mg/dL (7-17); Carbon Dioxide 26 mmol/L (22-30); Chloride 104 mmol/L (98-107); Glucose 122 mg/dL (74-99); Non-African American GFR(CKD) >90 (>60 ml/min/1.73 sqM); Potassium 4.1 mmol/L (3.5-5.1); Sodium 139 mmol/L (137-145)
[2019-10-04] MEDS ORDERED: ZIPRASIDONE 20 MG VIAL IM PRN (20:16)
[2019-10-04] MEDS ORDERED: MAG HYDROX/AL HYDROX/SIMETH 30 ML CUP PO PRN (20:16)
[2019-10-05 00:08] VITALS: BMI 22.7
[2019-10-05] MEDS: MAGNESIUM HYDROXIDE 2,400 MG/10 ML CUP PO PRN ×2 (01:57→17:01)
[2019-10-05] MEDS: LORazepam 1 MG TAB PO PRN (08:38)
[2019-10-05] MEDS: PANTOPRAZOLE 40 MG TABLET PO SCH (08:38)
[2019-10-05] MEDS: ACETAMINOPHEN TAB 325 MG TAB PO PRN (08:39)
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
[2019-10-05] MEDS: SERTRALINE 50 MG TAB PO SCH (13:19)
[2019-10-05 17:26] LABS: Hemoglobin A1C 5.6 % (4.0-6.0)
[2019-10-05] MEDS ORDERED: QUEtiapine 25 MG TAB PO SCH (21:00)
--- NOTE | 2019-10-05 22:04 | P.CONS ---
History of Present Illness - Reason for Consult Consult date: 10/05/19 - Chief Complaint suicidal - History of Present Illness Niki Powers is a 54 yo F with PMH of interstitial cystitis, anxiety who presented to the emergency department concerned she was in acute benzodiazepine withdrawal and experiencing suicidal ideation. Pt describes anxiety, shakiness and feeling on edge that she attributes to benzodiazepine withdrawal. She states that she had been on ativan for a few years for her interstitial cystitis, at one point taking 6 mg per day. For at least the past year however she has been doing 3 mg daily. Her MAPS is reviewed and she has been regularly filling the same dose of ativan. Pt states that her son recently went to college in July and since then she has noticed a marked increase in anxiety, difficulty sleeping and feelings of worthlessness. Review of Systems All systems: negative Constitutional: Denies chills, Denies fever Eyes: denies blurred vision, denies pain Ears, nose, mouth and throat: Denies headache, Denies sore throat Cardiovascular: Denies chest pain, Denies shortness of breath Respiratory: Denies cough Gastrointestinal: Denies abdominal pain, Denies diarrhea, Denies nausea, Denies vomiting Genitourinary: Denies dysuria, Denies hematuria Musculoskeletal: Denies myalgias Integumentary: Denies pruritus, Denies rash Neurological: Denies numbness, Denies weakness Psychiatric: Reports as per HPI, Reports anhedonia, Reports anxiety, Reports change in sleep habits, Reports depression, Reports suicidal ideation Endocrine: Denies fatigue, Denies weight change Past Medical History Past Medical History: No Reported History Additional Past Medical History / Comment(s): diverticulitis, interstital cystitis History of Any Multi-Drug Resistant Organisms: None Reported Past Surgical History: Tonsillectomy Additional Past Surgical History / Comment(s): sinus surgery Past Anesthesia/Blood Transfusion Reactions: No Reported Reaction Smoking Status: Never smoker Medications and Allergies Home Medications Medication Instructions Recorded Confirmed Type Pantoprazole [Protonix] 1 tab PO DAILY #30 tablet. 09/25/19 10/04/19 Rx LORazepam [Ativan] 3 mg PO DAILY 10/04/19 10/04/19 History Allergies Allergy/AdvReac Type Severity Reaction Status Date / Time tetracycline Allergy Anaphylaxis Verified 10/04/19 17:32 codeine AdvReac Confusion Verified 10/04/19 17:32 Physical Exam Vitals: Vital Signs Temp Pulse Resp BP Pulse Ox 10/05/19 08:41 128 H 18 128/80 97 10/05/19 05:14 97.5 F L 93 15 103/68 10/04/19 23:41 97.9 F 113 H 16 134/89 95 Intake and Output 10/05/19 10/05/19 10/05/19 06:59 14:59 22:59 Other: Weight 65.816 kg General: Huddled in blanket, withdrawn. Vitals reviewed Eyes: PERRL, EOMI, conjunctiva normal HENT: normocephalic, mucus membranes moist Neck: supple, no JVD Lungs: normal respiratory effort, no wheezes or rales CV: Regular rate and rhythm, no murmur. Peripheral pulses 2+ Abdomen: soft, nondistended, no organomegaly Lymph: no cervical or axillary LAD Skin: warm and dry. Neuro: A&Ox3. Flat affect. Poor eye contact Results CBC & Chem 7: 10/04/19 19:04 10/04/19 19:04 Labs: Abnormal Lab Results - Last 24 Hours (Table) 10/05/19 Range/Units 09:11 HDL Cholesterol 69 H (40-60) mg/dL Assessment and Plan (1) GERD without esophagitis Current Visit: Yes Status: Acute Code(s): K21.9 - GASTRO-ESOPHAGEAL REFLUX DISEASE WITHOUT ESOPHAGITIS SNOMED Code(s): 213789329 (2) Suicidal behavior Current Visit: Yes Status: Acute Code(s): R46.89 - OTHER SYMPTOMS AND SIGNS INVOLVING APPEARANCE AND BEHAVIOR SNOMED Code(s): 665682052 Plan: 1. Suicidal ideation. Severe major depression. Management per psychiatry. Agree with initiation of SSRI 2. Interstitial cystitis. Continue ativan 1 mg tid 3. GERD. Continue protonix
[2019-10-06] MEDS ORDERED: LORazepam 1 MG TAB ONE (01:30)
[2019-10-06 05:02] LABS: Glucose,Whole Blood 108 mg/dL (75-99)
[2019-10-06] MEDS: PANTOPRAZOLE 40 MG TABLET PO SCH (08:53)
[2019-10-06] MEDS: SERTRALINE 50 MG TAB PO SCH (08:53)
[2019-10-06] MEDS: LORazepam 1 MG TAB PO PRN ×2 (09:20→20:10)
--- NOTE | 2019-10-06 12:47 | P.PN ---
Progress Note - Text Progress Note Date: 10/06/19 Clinical Problems: Major depressive disorder severe single episode, rule out persistent depressive disorder, generalized anxiety disorder, benzodiazepine withdrawal Interim history: I reviewed the medical record and interviewed the patient. She complained that she experienced "generalized burning" after she took the 25 mg dose of Seroquel yesterday. This sensation has gradually subsided. She became acutely distressed last night to the point where she required a 1 mg dose of Ativan. She denied that she had been prescribed Seroquel in the past. She denied experiencing a rash or generalized pruritus. She continues to express feelings of hopelessness and helplessness. She feels overwhelmed by her inability to recover. She complains of muscle tension, fatigue, poor sleep, restlessness and difficulty concentrating. We discussed treatment options and agreed to a trial of Lyrica 50 mg 3 times a day for treatment of anxiety and general muscle tension as well as Ambien 5 mg when necessary for sleep Mental status exam: She friend presented as a distressed and frail-appearing middle-aged female who was pleasant on approach. She covered herself with a blanket during interview. She had a distressed facial expression. She showed psychomotor retardation but no abnormal speech was slow and with decreased volume. Affect was depressed and unreactive. She expressed feelings of hopelessness, helplessness and worthlessness but denied specific suicidal ideation or wishes. Her thinking was coherent and logical. She denied hallucinations. Assessment: She had an unusual adverse side effect to Seroquel and was unwilling to consider another second-generation antipsychotic. Her experiences suggestive of an ALLERGIC reaction but the subjective sensation is not accompanied by puritis or rash. She remains somatically preoccupied, anxious and described symptoms of anxiety including muscle tension and fatigue and impaired concentration. She remains hopeless helpless and expresses feelings of anhedonia. Plan: Continue safety precautions. Continue Zoloft 50 mg daily and titrated according clinical response and tolerance. Continue to limit benzodiazepines due to her history of chronic benzodiazepine use with marked increased tolerance. Begin Ambien 5 mg at bedtime when necessary for sleep and monitor for adverse events. Begin their car 50 mg 3 times a day for the treatment of anxiety symptoms and titrated according to client response and tolerance. Encourage continued participation in therapeutic groups and activities. Evaluate clinical status response to treatment daily basis.
[2019-10-06] MEDS ORDERED: ZIPRASIDONE 20 MG VIAL IM PRN (14:15)
[2019-10-06] MEDS: PREGABALIN 50 MG CAP PO SCH ×3 (14:27→22:09)
[2019-10-06] MEDS: ZOLPIDEM 5 MG TAB PO PRN (22:08)
[2019-10-07] MEDS: LORazepam 1 MG TAB PO PRN (05:53)
[2019-10-07] MEDS: PANTOPRAZOLE 40 MG TABLET PO SCH (08:47)
[2019-10-07] MEDS: PREGABALIN 50 MG CAP PO SCH (08:48)
[2019-10-07] MEDS ORDERED: SERTRALINE 100 MG TAB PO SCH (09:00)
[2019-10-07] MEDS: LORazepam 0.5 MG TAB PO PRN ×2 (13:01→20:21)
--- NOTE | 2019-10-07 13:21 | P.PN ---
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 I also interviewed her . She complained of continued anxiety and alleged that she became acutely agitated within 10 minutes after taking 50 mg dose of Lyrica. She would not calm with verbal intervention and receive 20 mg of Geodon IM. She complained of becoming markedly anxious, tachycardic experiencing elevated blood pressure as she was taking the increased dose of Zoloft. I reviewed the vital signs and her blood pressure and pulse did increase when she received medication but decreased to normal within 30 minutes. She requested ro increase the Zoloft at a slower rate. She states she won't continue taking Lyrica. I spoke with her . She requested that she be taken off of benzodiazepines. He complained that she had been taken his medication for over 17 years and has been able to stop the medication home. She used a one-month supply within a few weeks, was unable to get additional doses of medication and experienced acute benzodiazepine withdrawal. He emphasized that he does not want her discharge taking a benzodiazepine. He stated that he is told her this and plans to inform her of his position when he visits her this evening. I told her that I do not plan to discharge her with her benzodiazepines. I will not substitute Ativan for a longer acting benzodiazepine such as Valium or clonazepam. We discussed other options for anxiety such as Vistaril or bupropion. Mental status exam: She presented as a distressed and frail-appearing middle- aged female who was pleasant on approach. She was less withdrawn and dramatic than yesterday. She had a blunted facial expression. She showed psychomotor retardation but no abnormal speech was slow and with decreased volume. Affect was depressed and unreactive. She expressed feelings of hopelessness, helplessness and worthlessness but denied specific suicidal ideation or wishes. Her thinking was coherent and logical. She denied hallucinations. Assessment: She had an unusual response to Lyrica. The elevation in vital signs include a result of anxiety and not related to the increased dose of Seroquel. Plan: Continue safety precautions. I initially increased dose of this Zoloft 100 mg but we will reduce it to 75 mg beginning tomorrow and continue titrating clinical response and tolerance. Decrease Ativan to 0.5 mg 3 times a day when necessary for anxiety. Continue Geodon 20 mg IM twice a day when necessary for agitation or aggression. Continue Ambien 5 mg at bedtime when necessary for sleep and monitor for adverse events. Encourage continued participation in therapeutic groups and activities. Evaluate clinical status response to treatment daily basis.
[2019-10-07] MEDS: ZOLPIDEM 5 MG TAB PO PRN (21:59)
[2019-10-08] MEDS: LORazepam 0.5 MG TAB PO PRN ×3 (03:34→22:00)
[2019-10-08] MEDS ORDERED: hydrOXYzine PAMOATE 25 MG CAP PO STA (05:46)
[2019-10-08] MEDS: PANTOPRAZOLE 40 MG TABLET PO SCH (08:16)
[2019-10-08] MEDS: SERTRALINE 25 MG TAB PO SCH ×3 (08:16→16:32)
[2019-10-08] MEDS ORDERED: hydrOXYzine PAMOATE 25 MG CAP PO PRN (08:23)
[2019-10-08 09:05] LABS: African American GFR (CKD) >90 (>60 ml/min/1.73 sqM); Anion Gap 11 mmol/L; Blood Urea Nitrogen 8 mg/dL (7-17); Calcium 9.7 mg/dL (8.4-10.2); Carbon Dioxide 26 mmol/L (22-30); Chloride 102 mmol/L (98-107); Glucose 142 mg/dL (74-99); Non-African American GFR(CKD) >90 (>60 ml/min/1.73 sqM); Potassium 3.7 mmol/L (3.5-5.1); Sodium 139 mmol/L (137-145)
[2019-10-08] MEDS: ZIPRASIDONE 20 MG VIAL IM PRN ×2 (10:06→22:00)
--- NOTE | 2019-10-08 11:06 | P.PN ---
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 Unit nurse called me early this morning because the patient was acutely distressed and complains of cramping in her feet. I ordered a one-time dose of Vistaril 25 mg and she reported "mild" but temporary benefit. I initially posterior when she was in bed. She had the muscles of her legs and feet contracted. However, she was able to get out of bed and her gait was unaffected. While she was in the office she experience no contract impression of her feet. She complained of increasing anxiety, muscle tension, had pressure, feelings of "doom", muscle tension, lack of energy, abdominal distress and other somatic symptoms. We discussed treatment options and she remained reluctant to take medications other than benzodiazepines. Nursing reported that she refused the morning dose of Zoloft. We again discussed treatment options including Vistaril, second-generation antipsychotics such as Geodon as well as mood stabilizer such as Depakote and Tegretol. She was reluctant to consider all options and was particularly opposed to taking a "pill". She eventually agreed to take a lower dose of Geodon. We obtain a basic metabolic panel. Sodium 139, potassium 3.7, BUN 8 and creatinine 0.61. She slept 1 hour last night. She refused to morning dose of sertraline. Mental status exam: She presented as an acute distressed and pale middle-aged female who was pleasant on approach. She was less withdrawn and dramatic than yesterday. When she was laying in bed she had increased tension in his leg muscles and contraction of her foot muscles and toes. She was able to stand up, walk and her gait was steady. She had an anxious facial expression. She showed psychomotor retardation but no abnormal speech was slow and with decreased volume. Affect was sad and depressed. She expressed feelings of hopelessness, helplessness and worthlessness but denied specific suicidal ideation or wishes. Her thinking was coherent and logical. She denied hallucinations. Assessment: She remains anxious, somatically preoccupied and experiencing conversion symptoms. She remains reluctant to take medications other than benzodiazepines. Plan: Continue safety precautions. Encouraged to continue Zoloft 75 mg daily. Continue Ativan to 0.5 mg 3 times a day when necessary for anxiety. Change Geodon order to 10 mg IM 3 times a day for agitation or anxiety. Continue discussion of all contact medications for management of anxiety including second-generation antipsychotics, R, or mood stabilizers. Continue Ambien 5 mg at bedtime when necessary for sleep and monitor for adverse events. Begin Vistaril 25 mg by mouth every 6 hours when necessary for anxiety. Encourage continued participation in therapeutic groups and activities. Evaluate clinical status response to treatment daily basis.
[2019-10-09] MEDS: SERTRALINE 25 MG TAB PO SCH (08:35)
[2019-10-09] MEDS: PANTOPRAZOLE 40 MG TABLET PO SCH (08:35)
[2019-10-09] MEDS: MAGNESIUM HYDROXIDE 2,400 MG/10 ML CUP PO PRN (08:38)
[2019-10-09] MEDS ORDERED: ZIPRASIDONE 20 MG VIAL IM PRN (09:07)
--- NOTE | 2019-10-09 10:48 | P.PN ---
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 She was surprised that she slept 7 hours last night. She complained of dry mouth and nasal congestion that she attributed to the Geodon. She received 210 mg doses yesterday; 1 at 10 AM and the other at 10 PM. She also took the 75 mg dose of sertraline. She complained of feeling anxious about the severity of her subjective complaint are not consistent with her presentation. During the interview she complained of somatic symptoms. She talked about her head pounding and expanding. She also complained of soreness and cramping in her legs and feet. She did not demonstrate the contractions of the toes that she did yesterday. 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 She refused to go to group this morning. She was concerned that she would have to leave the group and oriented to go to the bathroom. We discussed treatment options and she agreed to continue with sertraline and agreed to start Geodon 20 mg at bedtime. Mental status exam: She presented as an casually groomed middle-aged female who was pleasant on approach. She was alert and engaged in the interview. She had a bright facial expression. She showed slight psychomotor retardation. Her speech was spontaneous with normal rate, rhythm and volume.. Her affect was blunted but bright. He did not express clear feelings of hopelessness or helplessness. She perseverated about multiple somatic concerns but showed some insight in that she understood that they're related to her anxiety. She denied hallucinations. Assessment: She is less anxious and somatically preoccupied. She is not demonstrating conversion symptoms. She remains reluctant to take medications ot her than benzodiazepines. Plan: Continue safety precautions. Continue Zoloft 75 mg daily. Continue Ativan to 0.5 mg 3 times a day when necessary for anxiety; avoid additional benzodiazepines. Continue Geodon 10 mg IM 3 times a day for agitation or anxiety. Begin Geodon 20 mg at bedtime for treatment of the benzodiazepine withdrawal, anxiety, agitation, depression and conversion symptoms. Continue Ambien 5 mg at bedtime when necessary for sleep and monitor for adverse events. Continue Vistaril 25 mg by mouth every 6 hours when necessary for anxiety. Encourage continued participation in therapeutic groups and activities. Evaluate clinical status response to treatment daily basis.
[2019-10-09] MEDS ORDERED: WITCH HAZEL 1 EACH MED..PAD TOPICAL SCH (16:30)
[2019-10-09] MEDS ORDERED: SULFAMETHOX-TMP 800-160MG 1 EACH TAB PO SCH (17:00)
[2019-10-09] MEDS: ACETAMINOPHEN TAB 325 MG TAB PO PRN ×2 (17:26→21:29)
[2019-10-09 17:58] VITALS: RESP 18
--- NOTE | 2019-10-09 19:05 | P.OBCN ---
History of Present Illness Consult date: 10/09/19 Reason for consult: pelvic mass History of present illness: 54 year old is in Mental Health for medication withdrawl. She has a new pain on the vulva and running up the groin from a vaginal cyst. She says she has had these cysts in the past and they ususally drain pus. She has not had one this large before. Review of Systems All systems: negative Constitutional: Denies chills, Denies fever Eyes: denies blurred vision, denies pain Ears, nose, mouth and throat: Denies headache, Denies sore throat Cardiovascular: Denies chest pain, Denies shortness of breath Respiratory: Denies cough Gastrointestinal: Denies abdominal pain, Denies diarrhea, Denies nausea, Denies vomiting Genitourinary: Denies dysuria, Denies hematuria Musculoskeletal: Denies myalgias Integumentary: Denies pruritus, Denies rash Neurological: Denies numbness, Denies weakness Psychiatric: Denies anxiety, Denies depression Endocrine: Denies fatigue, Denies weight change Past Medical History Past Medical History: No Reported History Additional Past Medical History / Comment(s): diverticulitis, interstital cystitis History of Any Multi-Drug Resistant Organisms: None Reported Past Surgical History: Tonsillectomy Additional Past Surgical History / Comment(s): sinus surgery Past Anesthesia/Blood Transfusion Reactions: No Reported Reaction Smoking Status: Never smoker Medications and Allergies Home Medications Medication Instructions Recorded Confirmed Type Pantoprazole [Protonix] 1 tab PO DAILY #30 tablet. 09/25/19 10/04/19 Rx LORazepam [Ativan] 3 mg PO DAILY 10/04/19 10/04/19 History Allergies Allergy/AdvReac Type Severity Reaction Status Date / Time tetracycline Allergy Anaphylaxis Verified 10/04/19 17:32 codeine AdvReac Confusion Verified 10/04/19 17:32 Exam Osteopathic Statement: *. No significant issues noted on an osteopathic structural exam other than those noted in the History and Physical/Consult. Vital Signs Temp Pulse Resp BP Pulse Ox 10/09/19 17:57 97.8 F 90 18 157/86 95 10/09/19 07:07 98.6 F 100 16 140/84 vulva-normal hair growth and distribution, normal labia majora. There is a 3cm cystic mass just the the left of the urethral meatus. This area is extremely tender and difficult to evaluate due to patient's discomfort. Results Result Diagrams: 10/04/19 19:04 10/08/19 08:40 Assessment and Plan (1) Vaginal cyst Current Visit: Yes Status: Acute Code(s): N89.8 - OTHER SPECIFIED NONINFLAMMATORY DISORDERS OF VAGINA SNOMED Code(s): 83119728 Plan: 1. Discussed having the cyst lacerated under local anesthesia or under a more general anesthesia. We discussed risks, benefits, and alternatives and I will take her to the operating room for exam under anesthesia with aspiration of vaginal cyst.
[2019-10-09] MEDS: ZIPRASIDONE 20 MG CAP PO SCH ×3 (20:41→22:13)
[2019-10-09 21:53] LABS: Appearance,Urine Clear (Clear); Bacteria,Urine Rare /hpf; Bilirubin,Urine Negative (Negative); Blood,Urine Negative (Negative); Color,Urine Colorless; Glucose,Urine (UA) Negative (Negative); Ketones,Urine Negative (Negative); Leukocyte Esterase,Urine Moderate (Negative); Nitrite,Urine Negative (Negative); PH, Urine 6.5 (5.0-8.0); Protein,Urine Negative (Negative); RBC,Urine <1 /hpf (0-5); Specific Gravity,Urine 1.004 (1.001-1.035); Squamous Epithelial Cell,Urine 1 /hpf (0-4); Urobilinogen,Urine <2.0 mg/dL (<2.0); WBC,Urine 6 /hpf (0-5)
[2019-10-10] MEDS ORDERED: POLYETHYLENE GLYCOL 3350 17 GM POWD.PACK PO SCH (07:37)
[2019-10-10 07:59] VITALS: BP 140/98; PULSE 99; TEMP 98.4
== END 2019-10-10 08:03 | disposition short-term general hospital (02) | DRG 881 ==
LOC: EC 17:11 → SUPCPDRO 17:11 → 3MHU 20:10
PROVIDERS: ADMIT Psychiatry & Neurology Psychiatry; ATTEND Psychiatry & Neurology Psychiatry
DX: F32.9 Major depressive disorder, single episode, unspecified (principal); F13.239 Sedative, hypnotic or anxiolytic dependence with withdrawal, unspecified; F41.0 Panic disorder [episodic paroxysmal anxiety]; G47.00 Insomnia, unspecified; K21.9 Gastro-esophageal reflux disease without esophagitis; N30.10 Interstitial cystitis (chronic) without hematuria; N89.8 Other specified noninflammatory disorders of vagina; Z88.1 Allergy status to other antibiotic agents; Z88.5 Allergy status to narcotic agent; Z81.8 Family history of other mental and behavioral disorders; Z81.1 Family history of alcohol abuse and dependence; Z79.899 Other long term (current) drug therapy
CPT/HCPCS: 36415; 80048; 80061; 80306; 81001; 81025; 82075; 83036; 84443; 85025; 93005; 96372; 99285

== ENCOUNTER 2019-10-10 08:05 | Day surgery (SDC) | payer BC ==
[2019-10-10] MEDS ORDERED: PROPOFOL 10 MG/ML 20 ML VIAL IV ONE (08:15)
[2019-10-10] MEDS ORDERED: LACTATED RINGERS 1,000 ML IV ONE (08:15)
[2019-10-10] MEDS ORDERED: fentaNYL (PF) 50 MCG/ML 2 ML AMP ONE (08:15)
[2019-10-10] MEDS ORDERED: ePHEDrine SULFATE/0.9% NACL/PF 50 MG/5 ML SYRINGE IV ONE (08:15)
[2019-10-10] MEDS ORDERED: MIDAZOLAM 2 MG/2 ML VIAL ONE (08:15)
[2019-10-10] MEDS ORDERED: LIDOCAINE 1% INJ 10MG/ML (20 ML MDV) ONE (08:15)
[2019-10-10 08:54] VITALS: RESP 16; TEMP 97.9
--- NOTE | 2019-10-10 08:54 | P.HPOB ---
History of Present Illness H&P Date: 10/10/19 Chief Complaint: vaginal cyst 54 year old presented to mental health for anxiety and difficulty with her medications at home. she was also complaining of a reoccurring vaginal cyst that is present and causing pain and pressure. She is extremely tender on exam and will require exam under anesthesia with drainage of this cyst. Review of Systems All systems: negative Constitutional: Denies chills, Denies fever Eyes: denies blurred vision, denies pain Ears, nose, mouth and throat: Denies headache, Denies sore throat Cardiovascular: Denies chest pain, Denies shortness of breath Respiratory: Denies cough Gastrointestinal: Denies abdominal pain, Denies diarrhea, Denies nausea, Denies vomiting Genitourinary: Denies dysuria, Denies hematuria Musculoskeletal: Denies myalgias Integumentary: Denies pruritus, Denies rash Neurological: Denies numbness, Denies weakness Psychiatric: Denies anxiety, Denies depression Endocrine: Denies fatigue, Denies weight change Past Medical History Past Medical History: No Reported History Additional Past Medical History / Comment(s): diverticulitis, interstital cystitis History of Any Multi-Drug Resistant Organisms: None Reported Past Surgical History: Tonsillectomy Additional Past Surgical History / Comment(s): sinus surgery Past Anesthesia/Blood Transfusion Reactions: No Reported Reaction Smoking Status: Never smoker Medications and Allergies Home Medications Medication Instructions Recorded Confirmed Type Pantoprazole [Protonix] 1 tab PO DAILY #30 tablet. 09/25/19 10/04/19 Rx LORazepam [Ativan] 3 mg PO DAILY 10/04/19 10/04/19 History Allergies Allergy/AdvReac Type Severity Reaction Status Date / Time tetracycline Allergy Anaphylaxis Verified 10/04/19 17:32 codeine AdvReac Confusion Verified 10/04/19 17:32 Exam Osteopathic Statement: *. No significant issues noted on an osteopathic structural exam other than those noted in the History and Physical/Consult. Intake and Output 10/09/19 10/10/19 10/10/19 22:59 06:59 14:59 Intake Total 500 Output Total 76 Balance 424 Intake: IV 500 Output: Urine 75 Estimated Blood Loss 1 vaginal exam: she has a 3cm cyst on the anterior vagina very close to the urethra. Assessment and Plan (1) Vaginal cyst Current Visit: No Status: Acute Code(s): N89.8 - OTHER SPECIFIED NONINFLAMMATORY DISORDERS OF VAGINA SNOMED Code(s): 20824913 Plan: 1. exam under anesthesia with drainage of vaginal cyst
--- NOTE | 2019-10-10 08:58 | P.OP ---
Date of Procedure: 10/10/19 Preoperative Diagnosis: 1. vaginal cyst Postoperative Diagnosis: 1. vaginal cyst full of purulent fluid Procedure(s) Performed: exam under anesthesia with drainage of vaginal cyst Anesthesia: MAC Surgeon: Alondra Lebron Estimated Blood Loss (ml): 1 IV fluids (ml): 500 Urine output (ml): 75 Pathology: other (culture sent) Condition: stable Disposition: PACU Operative Findings: 3cm vaginal cyst to the left of the urethra filled with purulent fluid. When drained and collapsed, the area reduced to normal exam. Description of Procedure: Patient is taken the operating room where general anesthesia was obtained without difficulty. She is prepped and draped in normal sterile fashion dorsal lithotomy position, legs placed in candycane stirrups. Bimanual exam was performed. The uterus is anteverted and normal size and mobility. Both ovaries were palpated normal, no cysts or pelvic masses. The cervix appears normal the vaginal vault appears normal except for a 3 cm cyst and the anterior wall of the vagina and appears to be putting pressure on the urethra and urethral meatus. Red rubber catheter was placed. At this time the 15 blade was used to make this incision on the posterior aspect of the vaginal cyst. Purulent drainage was cultured and expressed out. Allis was removed from the vagina. Patient procedure well. Sponge and instrument counts are correct 2. She was taken to recovery in stable condition.
[2019-10-10 09:17] VITALS: BP 158/88; PULSE 94
== END 2019-10-10 09:25 | disposition psychiatric hospital, planned readmission (93) ==
LOC: OR 08:05
PROVIDERS: ATTEND Family Medicine
DX: N89.8 Other specified noninflammatory disorders of vagina (principal); N30.10 Interstitial cystitis (chronic) without hematuria; F41.9 Anxiety disorder, unspecified; K21.9 Gastro-esophageal reflux disease without esophagitis; Z88.1 Allergy status to other antibiotic agents; Z88.5 Allergy status to narcotic agent; Z79.899 Other long term (current) drug therapy; Z87.19 Personal history of other diseases of the digestive system; Z90.89 Acquired absence of other organs
CPT/HCPCS: 87070; 87205; 87075; 87077; 87186; 57410; 56405; J2250; J2001; J3010; J2704

== ENCOUNTER 2019-10-10 08:09 | Inpatient (IN) | payer BC ==
[2019-10-10] MEDS ORDERED: LORazepam 0.5 MG TAB PO PRN (10:02)
[2019-10-10] MEDS ORDERED: MAGNESIUM HYDROXIDE 2,400 MG/10 ML CUP PO PRN (10:02)
[2019-10-10] MEDS ORDERED: MAG HYDROX/AL HYDROX/SIMETH 30 ML CUP PO PRN (10:02)
[2019-10-10] MEDS ORDERED: ZIPRASIDONE 20 MG VIAL IM PRN (10:02)
[2019-10-10] MEDS ORDERED: ACETAMINOPHEN TAB 325 MG TAB PO PRN ×2 (10:02→10:50)
[2019-10-10] MEDS ORDERED: ZOLPIDEM 5 MG TAB PO PRN (10:25)
[2019-10-10] MEDS ORDERED: hydrOXYzine PAMOATE 25 MG CAP PO PRN (10:32)
[2019-10-10] MEDS: POLYETHYLENE GLYCOL 3350 17 GM POWD.PACK PO SCH ×2 (11:10→21:33)
[2019-10-10] MEDS: SERTRALINE 25 MG TAB PO SCH (11:10)
[2019-10-10] MEDS: IBUPROFEN 600 MG TAB PO PRN (11:30)
--- NOTE | 2019-10-10 12:12 | P.PN ---
Progress Note - Text Progress Note Date: 10/10/19 This note as cross coverage for Dr. Hale. The patient was admitted to psychiatric service on 10/04/19 and was seen for initial psychiatric evaluation during this admission by Dr. Hale on 10/05/19. The patient had minor gynecological procedure this morning to remove vaginal cyst, so she was discharged, and readmitted to the psychiatric service. This is a progress note, and before previous psychiatric not please refer to Dr. 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 Patient reports poor sleep and decreased appetite. Patient had gynecological procedure this morning for removal of vaginal cyst.The patient is compliant with her medications and denies any adverse reactions. Patient minimizes depression and reports feeling less depressed, but tired with lack of motivation. She denies suicidal or homicidal thoughts. She denies any auditory or visual hallucinations, and he denies any manic symptoms. Reports Ambien doesn't help her with sleep and she continued to wake up frequently Objective: Vitals has been reviewed. Mental status examination; Appearance: The patient appears stated age, adequately groomed and dressed, no specific features. Gait/posture: Normal gait, Normal arm swinging: No abnormal movements. Attitude and behavior: engaged, cooperative, eye contact. Motor activity: Decreased psychomotor activity Speech: Normal rate, tone. Mood: "Anxious, depressed " Affect: Constricted Thought form: goal-directed, linear, coherent. Thought content: Non-delusional, denies suicidal thoughts, denies homicidal thoughts, denies intentions or plans. Perception: Denies any auditory or visual hallucinations Attention: No impairment. Patient was able to repeat serial 5. Orientation: Patient patient was fully oriented to time place person and situation. Insight: Patient has limited insight about his psychiatric disorder. Judgment: Patient has limited judgment about his psychiatric treatment. Assessment and diagnosis: Patient reports improvement of her depression symptoms, and he denies acute psychosis or glen. She continued to have very poor sleep and decreased appetite. Major depressive disorder, severe, single episode. Rule out major depressive disorder recurrent versus persistently depressive disorder. Generalized anxiety disorder. Sedative hypnotic withdrawal. Plan: Continue inpatient level of care due to further stabilization on medications. Continue treatment of depression and an anxiety disorder Precautions: Continue 15 minutes check for safety. Consider medical consultation if any acute medical issues arise. Provide the patient individual, group therapy, substance use disorder counseling to give better insight and learn coping skills. Medications: Continue Zoloft for depression and anxiety symptoms. Discontinue Ambien-patient reports doesn't help with the sleep. Continue Geodon 20 mg at bedtime as per Dr. Hale order Start Remeron 15 mg at bedtime to help with insomnia and for depression symptoms. Discharge patient to OUTPATIENT services upon a stabilization
[2019-10-10] MEDS: DOCUSATE 100 MG CAP PO SCH ×2 (15:19→21:34)
[2019-10-10] MEDS ORDERED: DICYCLOMINE 10 MG CAP PO PRN (16:09)
[2019-10-10] MEDS ORDERED: QUEtiapine 50 MG TAB PO PRN (17:21)
--- NOTE | 2019-10-10 17:29 | CONS ---
CONSULTATION I am covering for Dr. Mesa. DATE OF SERVICE: 10/10/2019. HISTORY OF PRESENT ILLNESS: This 54-year-old woman with a past medical history of multiple medical problems, including diverticulitis, interstitial cystitis, history of anxiety, panic attacks, being followed by Dr. Reardon in the outpatient setting, was admitted for psychiatric evaluation. The patient also had recent Bartholin cyst aspiration by Dr. Lebron. The results are not available at this time. The patient complains of some lower abdominal pain also. There is no history of any fever, rigor or chills. No history of headache, loss of consciousness, seizures at this time. PAST MEDICAL HISTORY: 1. History of diverticulitis. 2. Interstitial cystitis. 3. History of anxiety. MEDICATIONS: 1. Protonix 1 daily. 2. Ativan 3 mg p.o. daily. ALLERGIES: TETRACYCLINE and CODEINE. FAMILY HISTORY: No history of heart disease or strokes in the family. SOCIAL HISTORY: No history of smoking. No history of alcohol intake. REVIEW OF SYSTEMS: ENT: No diminished hearing. No diminished vision. CARDIOVASCULAR SYSTEM: No angina, palpitations. RESPIRATORY SYSTEM: No cough, hemoptysis. GI: As mentioned earlier. : As mentioned earlier. NERVOUS SYSTEM: No numbness, weakness. ALLERGY/IMMUNOLOGY: No asthma, hayfever. MUSCULOSKELETAL: As mentioned earlier. HEMATOLOGY/ONCOLOGY: No history of anemia. ENDOCRINE: No history of diabetes, hypothyroidism. CONSTITUTIONAL: As mentioned earlier. DERMATOLOGY: Negative. RHEUMATOLOGY: Negative. PSYCHIATRY: As mentioned earlier. PHYSICAL EXAMINATION: Patient alert and oriented x3. Pulse 77, blood pressure 140/81, respiration 16, temperature 97.9, pulse ox 96% on room air. HEENT: Conjunctivae normal. Oral mucosa moist. NECK: No jugular venous distention. No carotid bruit. No lymph node enlargement. CARDIOVASCULAR SYSTEM: S1, S2 muffled. RESPIRATORY SYSTEM: Breath sounds diminished at the bases. No rhonchi. No crackles. ABDOMEN: Soft. Mild diffuse discomfort on palpation. No guarding. No rigidity. LEGS: No edema. No swelling. NERVOUS SYSTEM: Higher functions as mentioned earlier. Cranial nerves 2 through 12 grossly intact. Eye movements are full in all directions. No nystagmus. No diplopia. No visual deviation. Moves all 4 limbs. Power is normal. No gait dysfunction. No signs of cerebellar dysfunction. LYMPHATICS: No lymph node palpable in neck, axillae or groin. SKIN: No ulcer, rash, bleeding. JOINTS: No active deforming arthropathy. Labs are pending at this time. ASSESSMENT: 1. Abdominal pain; possible irritable bowel syndrome. 2. History of recent Bartholin cyst aspiration by PRIMARY HEALTH CARE NURSE. 3. Labile hypertension. 4. Depression. 5. Anxiety, panic attacks. 6. History of diverticulitis. 7. History of interstitial nephritis. RECOMMENDATIONS AND DISCUSSION: In this 54-year-old woman who presented for psychiatric evaluation, at this time I recommend to continue the current medications. I will be happy to review any basic labs for any abnormalities. Otherwise, I would recommend symptomatic treatment. P.r.n. Bentyl can be used for the abdominal discomfort. Otherwise, the blood pressure is fluctuating. This could be related to her anxiety and panic attacks. If blood pressure is consistently elevated, I will be happy to review with the patient, or the patient may be asked to take the blood pressure monitor at home using a blood pressure meter and follow up with the primary physician in the outpatient setting. We will follow the patient closely with you. Thank you for letting us participate in the care of this patient. MMODL / IJN: [id number] /
[2019-10-10] MEDS: MIRTAZAPINE 15 MG TAB PO SCH (21:33)
[2019-10-10] MEDS: ZIPRASIDONE 20 MG CAP PO SCH ×2 (21:33→22:07)
--- NOTE | 2019-10-10 23:13 | XR ---
EXAMINATION TYPE: XR abdomen 2V DATE OF EXAM: 10/10/2019 COMPARISON: 09/22/2019 HISTORY: Nausea and vomiting TECHNIQUE: 3 views FINDINGS: Supine and upright views were obtained and show no sign of intestinal obstruction or pneumo peritoneum. Fecal pattern is normal. There is no evidence of a mass. Lung bases are clear. There are no pathologic calcifications. IMPRESSION: Nonacute abdomen. No change.
[2019-10-11] MEDS: IBUPROFEN 600 MG TAB PO PRN (07:14)
[2019-10-11] MEDS: PANTOPRAZOLE 40 MG TABLET PO SCH ×2 (08:58→09:43)
[2019-10-11] MEDS: POLYETHYLENE GLYCOL 3350 17 GM POWD.PACK PO SCH ×3 (08:58→22:02)
[2019-10-11] MEDS: DOCUSATE 100 MG CAP PO SCH ×3 (08:58→22:02)
[2019-10-11] MEDS: SERTRALINE 25 MG TAB PO SCH ×4 (08:58→11:38)
--- NOTE | 2019-10-11 10:13 | P.PN ---
Progress Note - Text Progress Note Date: 10/11/19 S/P EUA with drainage of vaginal cyst POD #1 Patient seen resting comfortably in her bed. She's required a little bit of Motrin for discomfort. She feels a little bit of burning with wiping which is to be expected. There is no more purulent drainage but there is a little bit of blood. She denies nausea, vomiting, chest pain, shortness of breath or calf pain. I will sign off of the case for now. She needs to follow-up with me in my office in about 2 weeks.
[2019-10-11] MEDS ORDERED: OLANZapine ODT 5 MG TAB PO PRN (11:55)
[2019-10-11] MEDS ORDERED: hydrOXYzine PAMOATE 25 MG CAP PO PRN (11:56)
--- NOTE | 2019-10-11 11:57 | P.PN ---
Progress Note - Text Progress Note Date: 10/11/19 This is a follow up psychiatric note as cross coverage for Dr. Hale. Clinical Problems: benzodiazepine withdrawal, mood disorder most likely secondary to chronic benzodiazepine use and/or benzodiazepine withdrawal, generalized anxiety disorder, rule out persistent depressive disorder, rule out major depressive disorder Interval history: Patient reports has been feeling very irritable with severe anxiety symptoms since yesterday after she had the gynecological procedure. Nursing called a few times yesterday because the patient had severe panic attacks. Patient reports continued to have suicidal and homicidal thoughts and her homicidal thoughts toward "whoever not giving me Ativan". She reports auditory hallucinations "telling me to go to hell" and visual hallucinations "evil faces". She reports worsening of her depression and mood symptoms with severe irritability and outbursts of severe agitation. Patient is very concerned about taking more Ativan and she reported as per discussion with her primary psychiatrist she doesn't want to go back on Ativan. Also, patient reports couldn't tolerate Geodon and she stopped taking it because of caused her dryness of mouth and nose. She refused to take Zoloft at this morning because she feels "more stimulating". Patient was educated about her psychiatric medications and alternative mood stabilizers, and she was explained that taking Zoloft without mood stabilizer could cause stimulation and increased irritability and mood swings. Patient agreed to start her to do for mood stabilization, and will use Zyprexa Zydis as needed for severe agitation or psychotic symptoms to replace Geodon injection, and Vistaril when necessary for anxiety. Patient reports had better sleep last night with Remeron, but according to chart review she slept only 3 hours. Objective: Vitals has been reviewed. Mental status examination; Appearance: The patient appears stated age, adequately groomed and dressed, no specific features. Gait/posture: Normal gait, Normal arm swinging: No abnormal movements. Attitude and behavior: engaged, cooperative, eye contact. Motor activity: Decreased psychomotor activity Speech: Normal rate, tone. Mood: "Anxious, depressed, irritable " Affect: Increased range. Thought form: goal-directed, linear, coherent. Thought content: Non-delusional, reports suicidal thoughts, reports homicidal thoughts, denies intentions or plans. Perception: Reports auditory and visual hallucinations Attention: No impairment. Patient was able to repeat serial 5. Orientation: Patient patient was fully oriented to time place person and situation. Insight: Patient has limited insight about his psychiatric disorder. Judgment: Patient has limited judgment about his psychiatric treatment. Assessment and diagnosis: Patient showing worsening of her depression, psychosis and mood symptoms. Today, reports she was not honest about reporting her symptoms yesterday. Major depressive disorder, severe, single episode. Rule out major depressive disorder recurrent with psychotic features. Generalized anxiety disorder. Sedative hypnotic withdrawal. Plan: Continue inpatient level of care due to further stabilization on medications. Continue treatment of depression and an anxiety disorder Precautions: Continue 15 minutes check for safety. Consider medical consultation if any acute medical issues arise. Provide the patient individual, group therapy, substance use disorder counseling to give better insight and learn coping skills. Medications: Continue Zoloft for depression and anxiety symptoms. Started to do 20 mg twice a day with lunch and dinner for mood stabilization and psychotic symptoms Continue Remeron 15 mg at bedtime to help with insomnia and for depression symptoms. Start Zyprexa Zydis 5 mg 3 times daily as needed for severe agitation or psychotic symptoms. Increase Vistaril 50 mg 4 times a day daily as needed for anxiety. Discontinue Ambien-patient reports doesn't help with the sleep. Discontinue Geodon 20 mg at bedtime Discontinue when necessary Geodon Discharge patient to OUTPATIENT services upon a stabilization
[2019-10-11] MEDS: LURASIDONE 20 MG TAB PO SCH ×5 (12:17→17:23)
[2019-10-11] MEDS ORDERED: hydrALAZINE HCL 10 MG TAB PO ONE (21:00)
[2019-10-11 21:30] LABS: Basophils % (A) 0 %; Eosinophils # (A) 0.1 k/uL (0-0.7); Eosinophils % (A) 1 %; HCT 44.6 % (34.0-46.0); HGB 15.3 gm/dL (11.4-16.0); Lymphocytes # (A) 1.6 k/uL (1.0-4.8); Lymphocytes % (A) 17 %; MCH 32.5 pg (25.0-35.0); MCHC 34.4 g/dL (31.0-37.0); MCV 94.5 fL (80.0-100.0); Mean Platelet Volume 6.3; Monocytes # (A) 0.6 k/uL (0-1.0); Monocytes % (A) 6 %; Neutrophils # (A) 7.3 k/uL (1.3-7.7); Neutrophils % (A) 75 %; Platelet Count 247 k/uL (150-450); RBC 4.71 m/uL (3.80-5.40); RDW 12.4 % (11.5-15.5); WBC 9.7 k/uL (3.8-10.6)
--- NOTE | 2019-10-11 21:34 | XR ---
EXAMINATION TYPE: XR chest 2V DATE OF EXAM: 10/11/2019 COMPARISON: 09/24/2019 HISTORY: Fever TECHNIQUE: Frontal and lateral views of the chest are obtained. FINDINGS: Heart and mediastinum are normal. Lungs are clear. Diaphragm is normal. Bony thorax appear s normal. IMPRESSION: Normal chest. No change.
[2019-10-11] MEDS: MIRTAZAPINE 15 MG TAB PO SCH (22:32)
[2019-10-12] MEDS: PANTOPRAZOLE 40 MG TABLET PO SCH (07:56)
[2019-10-12] MEDS: DOCUSATE 100 MG CAP PO SCH ×2 (07:57→21:45)
[2019-10-12] MEDS: POLYETHYLENE GLYCOL 3350 17 GM POWD.PACK PO SCH ×2 (07:57→21:45)
[2019-10-12] MEDS: SERTRALINE 25 MG TAB PO SCH (07:57)
[2019-10-12 08:12] LABS: Appearance,Urine Clear (Clear); Bacteria,Urine Rare /hpf; Bilirubin,Urine Negative (Negative); Blood,Urine Trace (Negative); Color,Urine Colorless; Glucose,Urine (UA) Negative (Negative); Ketones,Urine Negative (Negative); Leukocyte Esterase,Urine Negative (Negative); Nitrite,Urine Negative (Negative); Protein,Urine Negative (Negative); RBC,Urine 1 /hpf (0-5); Specific Gravity,Urine 1.001 (1.001-1.035); Squamous Epithelial Cell,Urine <1 /hpf (0-4); Urobilinogen,Urine <2.0 mg/dL (<2.0); WBC,Urine 1 /hpf (0-5)
[2019-10-12] MEDS: LURASIDONE 20 MG TAB PO SCH ×2 (13:25→18:25)
--- NOTE | 2019-10-12 14:11 | P.PN ---
Progress Note - Text Progress Note Date: 10/12/19 Clinical Problems: Major depressive disorder recurrent severe without psychotic features, generalized anxiety disorder, sedative hypnotic withdrawal Interim history: On Saturday she is transferred to [facility] for the treatment of vaginal cyst. I reviewed the medical record and interviewed the patient. She reports slight decrease of her anxiety and improvement in mood with the current medication regimen. Over the weekend she started Latuda 20 mg twice a day and Remeron 50 mg at bedtime in addition to Zoloft 75 mg daily. However she alleged that anxiety abruptly worsened this morning after she took a 75 mg dose of Zoloft this morning. She requested to decrease the sertraline back to 50 mg daily As during prior encounters she was somatically preoccupied and described various symptoms such as pressure in her head, stomach and chest. She described burning sensations in her body as well as an "explosions" inside herself. She was more open about her early history and development. She talked about her anger, frustration and loss when her parents . She felt abandoned by he r mother because she lived with her father and 2 brothers. 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 She felt that her father favored her brothers over her and neither her mother nor her father were emotionally supportive. This continued into high school when she began to live intermittently with her mother. She talked about spending one school year with her mother and the next school year with her father. She changed high schools every year until she graduated. Mental status exam: She presented as a thin pale appearing 54-year-old female who was pleasant on approach. She made eye contact and attended the interview. She had no physical abnormalities. She had a blunted but bright facial expression. She showed slight psychomotor retardation but no abnormal movements. She did not have a tremor. His speech was spontaneous with decreased volume. Her affect was depressed but reactive. She denied suicidal ideation or wishes. She ruminated about her feelings of abandonment and loss. Her thinking was abstract and associations were coherent. Assessment: She appears less depressed and anxious but continues to be somatically preoccupied. Monitor for signs and symptoms of akathisia since she is taking 40 mg of Latuda to as well as when necessary doses of Zydis. Plan: Continue inpatient hospitalization. Continue safety precautions. Decrease Zoloft to 50 mg daily. Continue Latuda 20 mg twice a day and Remeron 15 mg at bedtime. Continue Zydis 5 mg 3 times a day when necessary for agitation or psychosis. Discontinue Ativan. community support worker to assist with disposition including referral for individual therapy. Encourage participation in therapeutic groups and activities. Evaluate clinical status response to treatment daily basis.
[2019-10-12] MEDS: LISINOPRIL 5 MG TAB PO SCH ×2 (16:47→16:48)
[2019-10-12] MEDS: MIRTAZAPINE 15 MG TAB PO SCH (21:45)
[2019-10-13] MEDS: PANTOPRAZOLE 40 MG TABLET PO SCH ×2 (09:09→09:16)
[2019-10-13] MEDS: SERTRALINE 50 MG TAB PO SCH ×2 (09:09→09:15)
[2019-10-13] MEDS: POLYETHYLENE GLYCOL 3350 17 GM POWD.PACK PO SCH ×3 (09:09→21:15)
[2019-10-13] MEDS: LISINOPRIL 5 MG TAB PO SCH ×2 (09:09→09:16)
[2019-10-13] MEDS: DOCUSATE 100 MG CAP PO SCH ×3 (09:09→21:16)
--- NOTE | 2019-10-13 14:13 | P.PN ---
Progress Note - Text Progress Note Date: 10/13/19 Clinical Problems: Unspecified depressive disorder, generalized anxiety disorder, sedative hypnotic withdrawal, rule out major depressive disorder Interim history: I reviewed the medical record, spoke with her and interviewed the patient. She complained of worsening restlessness and hand tremor. She refused to take Geodon last night and this afternoon. She also refused to take the morning dose of Zoloft. She also complained about worsening restlessness, "mental fog" and mucosal dryness after she took a 50 mg dose of his strong yesterday. She requested to discontinue Latuda, Vistaril and Zoloft. She remained somatically focused and talked about having heightened sense of sme ll hearing and vision. I encouraged her to at least continue with Remeron or another antidepressant. I once again explained the benefits of antidepressants for treatment of anxiety and depression Her 's concern about the continued hospitalization and effective hospitalization and her well-being. He stated that she is afraid of several patients on the unit. She feels out of place and anxious. He has no concerns with her safety and assures me that he could manage her as long she does not have benzodiazepines. We discussed her concerns and that her and agreed to plan for discharge tomorrow. Mental status exam: She presented as a thin pale appearing 54-year-old female who was pleasant on approach. She made eye contact and attended the interview. She had no physical abnormalities. She had a blunted but bright facial expression. She had a mild hand tremor. His speech was spontaneous with decreased volume. Her affect was depressed but reactive. She denied suicidal ideation or wishes. She ruminated about difficulty she has remaining in hospital. Her thinking was abstract and associations were coherent. Assessment: She appears less depressed and anxious but continues to be somatically preoccupied. She developed tremor and possible akathisia secondary to Latuda. Plan: Plan for discharge on 10/14/2019 Continue safety precautions. Discontinue Zoloft, cystitis, Latuda Latuda 20 mg twice a day and and Vistaril. Continue Remeron 15 mg at bedtime. broom worker to assist with disposition including referral for individual therapy. Encourage participation in therapeutic groups and activities. Evaluate clinical status response to treatment daily basis.
[2019-10-13] MEDS: LURASIDONE 20 MG TAB PO SCH (14:18)
[2019-10-13] MEDS ORDERED: LURASIDONE 20 MG TAB PO SCH (21:00)
[2019-10-13] MEDS: MIRTAZAPINE 15 MG TAB PO SCH (21:16)
[2019-10-14 07:15] VITALS: RESP 16; TEMP 98.4
[2019-10-14] MEDS: DOCUSATE 100 MG CAP PO SCH (09:04)
[2019-10-14] MEDS: LISINOPRIL 5 MG TAB PO SCH (09:04)
[2019-10-14] MEDS: POLYETHYLENE GLYCOL 3350 17 GM POWD.PACK PO SCH (09:04)
[2019-10-14] MEDS: PANTOPRAZOLE 40 MG TABLET PO SCH (09:05)
[2019-10-14 09:32] VITALS: BP 144/74; PULSE 98
--- NOTE | 2019-10-19 08:40 | P.DS ---
Providers Date of admission: 10/10/19 09:29 Attending physician: Foster Hale MD Consults: 10/10/19 10:02 Consult Physician Routine Consulting Provider: Yinka Mesa Consult Reason/Comments: to notify patient readmitted post op surgerys same day. Do you want consulting provider notified?: Yes 10/10/19 11:02 Consult Physician Routine Consulting Provider: Alondra Lebron Consult Reason/Comments: Followup post operative visit to unit Do you want consulting provider notified?: Yes 10/12/19 15:01 Consult Physician Routine Consulting Provider: Yinka Mesa Consult Reason/Comments: Do you recommend starting an antihypertensive? pt received hydralazine yest Do you want consulting provider notified?: Yes Primary care physician: Michela Reardon - Discharge Diagnosis(es) (1) Suicidal ideation Status: Resolved Priority: Low (2) Major depressive disorder Status: Chronic Priority: Medium (3) Benzodiazepine withdrawal Status: Resolved Priority: Medium (4) Chronic prescription benzodiazepine use Status: Chronic Priority: High (5) Generalized anxiety disorder Status: Chronic Priority: Medium Hospital Course: The patient is a 54-year-old somatically preoccupied female who presented to the psychiatric unit with complaints of increasing anxiety, insomnia and suicidal ideation. She was preoccupied about benzodiazepines and worried that her symptoms were a result of benzodiazepine withdrawal. She has been prescribed benzodiazepines for the last 17 years. She was originally prescribed the benzodiazepine for the treatment of interstitial cystitis but continue with the medications when the cystitis symptoms resolved. She was struggling as an outpatient to lower the dose below 6 mg per day. Prior to admission her physician assistant tennis coach prescribed 1.5 mg per day. She alleged that she "misread" the directions and was taking 3 mg per day. Her reports that she is struggling with lowering the dose benzodiazepine. He no longer "trusted" her and was monitoring her benzodiazepine use. In addition she described a clear change in her mood and anxiety beginning around July this year. She described subjective depression including impairment in concentration and sleep, increased difficulty with managing stress and conflict in addition to feeling hopeless, helpless and worthless. She described increasing anxiety and periods of increased anxiety consistent with panic attacks. We admitted to the psychiatric unit on this care of this scientific writer. We provided a biopsychosocial assessment. We treated her benzodiazepine withdrawal with tapering doses of Ativan. We started Zoloft and gradually titrated dose to 75 mg per day. She required a when necessary Geodon and Vistaril for treatment of restlessness and anxiety. She struggled with tolerance for psychotropic medications. She attempted to negotiate changing Ativan to clonazepam. During this hospital stay she developed pain in the vaginal area. Gynecological consult revealed a vaginal cyst. She was transferred to come to [facility]ology Lab Technician service for cysts laceration under local anesthesia. After completion of procedure should return to the psychiatric unit. The covering psychiatrist continue Zoloft but started to Latuda 20 mg twice a day, Remeron 15 mg at bedtime, Zydis 5 mg 3 times a day and Vistaril 50 mg 4 times a day. The patient developed restlessness and tremor after starting lithium. She also continued to complain of side effects to Zoloft (these were complaints of activation that occurred immediately after taking the pill). We decided to discontinue Latuda, as I guess and Zoloft. Her mood and anxiety appeared to improve with Remeron 50 mg at bedtime and Vistaril 50 mg 4 times a day. She participated intermittently in therapeutic groups and activities. She posed no management problem and had no episodes of behavioral dyscontrol. Social range for her to be referred for outpatient psychotherapy to develop skills to manage her depression and anxiety. Plan - Discharge Summary Discharge Rx Participant: No New Discharge Prescriptions: New Mirtazapine [Remeron] 15 mg PO HS 30 Days #30 tab Lisinopril [Zestril] 5 mg PO DAILY 30 Days #30 tab Continue Pantoprazole [Protonix] 1 tab PO DAILY #30 tablet. Discontinued LORazepam [Ativan] 3 mg PO DAILY Discharge Medication List Pantoprazole [Protonix] 1 tab PO DAILY #30 tablet. 09/25/19 [Rx] Lisinopril [Zestril] 5 mg PO DAILY 30 Days #30 tab 10/14/19 [Rx] Mirtazapine [Remeron] 15 mg PO HS 30 Days #30 tab 10/14/19 [Rx] Follow up Appointment(s)/Referral(s): [facility] [Outside] - 10/21/19 2:00 pm (Rajwinder Nails Please arrive 15 minutes early for paperwork ) Alondra Lebron DO [Doctor of Osteopathic Medicine] - 1 Week Michela Reardon DO [Primary Care Provider] - 10/15/19 3:00 pm Activity/Diet/Wound Care/Special Instructions: Activity and diet as tolerated. Avoid the use of street drugs and alcohol. Take all medications as prescribed. When you are in need of refills on your m edications please contact your medical provider and/or outpatient psychiatrist to have this done. Please go to scheduled outpatient appointment for aftercare treatment. If symptoms return or become worse, call the crisis line at and/or go to the nearest emergency room for evaluation. Discharge Disposition: HOME SELF-CARE
== END 2019-10-14 12:06 | disposition home or self-care (01) | DRG 885 ==
LOC: 3MHU 09:29
PROVIDERS: ADMIT Psychiatry & Neurology Psychiatry; ATTEND Psychiatry & Neurology Psychiatry
DX: F32.2 Major depressive disorder, single episode, severe without psychotic features (principal); R45.851 Suicidal ideations; N30.10 Interstitial cystitis (chronic) without hematuria; R45.850 Homicidal ideations; F41.0 Panic disorder [episodic paroxysmal anxiety]; F41.1 Generalized anxiety disorder; G47.00 Insomnia, unspecified; I10 Essential (primary) hypertension; T43.225A Adverse effect of selective serotonin reuptake inhibitors, initial encounter; K57.90 Diverticulosis of intestine, part unspecified, without perforation or abscess without bleeding; Z79.899 Other long term (current) drug therapy; Z88.1 Allergy status to other antibiotic agents; Z88.5 Allergy status to narcotic agent; Z81.8 Family history of other mental and behavioral disorders
CPT/HCPCS: 71046; 74019; 81001; 85025; 87040

== ENCOUNTER 2020-03-04 17:34 | Emergency (ER) | payer BC ==
[2020-03-04 17:48] VITALS: BP 145/94; TEMP 97.8
[2020-03-04 18:12] VITALS: PULSE 104
[2020-03-04 18:27] LABS: Appearance,Urine Clear (Clear); Bilirubin,Urine Negative (Negative); Blood,Urine Negative (Negative); Color,Urine Light Yellow; Glucose,Urine (UA) Negative (Negative); Ketones,Urine Negative (Negative); Leukocyte Esterase,Urine Negative (Negative); Nitrite,Urine Negative (Negative); PH, Urine 6.5 (5.0-8.0); Protein,Urine Trace (Negative); Specific Gravity,Urine 1.005 (1.001-1.035); Urobilinogen,Urine <2.0 mg/dL (<2.0)
--- NOTE | 2020-03-04 18:36 | ED ---
General Adult HPI - General Chief complaint: Urogenital Stated complaint: Female Time Seen by Provider: 03/04/20 17:52 Source: patient, family, RN notes reviewed Mode of arrival: ambulatory Limitations: no limitations - History of Present Illness Initial comments: 54-year-old female presents to the emergency department for a chief complaint of possible uterine prolapse. Patient states that for the past several months she has had pain in the vaginal vault. Patient states that she felt the area about a month ago and noticed a bulge. Patient states she went for a walk yesterday and this worsened. States that she pushed it back in. Patient is also having some burning with urination and however difficulty urinating. Denies any significant abdominal pain.Patient has no other complaints at this time including shortness of breath, chest pain, abdominal pain, nausea or vomiting, headache, or visual changes. - Related Data Previous Rx's Medication Instructions Recorded Pantoprazole [Protonix] 1 tab PO DAILY #30 tablet. 09/25/19 Lisinopril [Zestril] 5 mg PO DAILY 30 Days #30 tab 10/14/19 Mirtazapine [Remeron] 15 mg PO HS 30 Days #30 tab 10/14/19 Allergies Allergy/AdvReac Type Severity Reaction Status Date / Time tetracycline Allergy Anaphylaxis Verified 03/04/20 17:48 codeine AdvReac Confusion Verified 03/04/20 17:48 Review of Systems ROS Statement: Those systems with pertinent positive or pertinent negative responses have been documented in the HPI. ROS Other: All systems not noted in ROS Statement are negative. Past Medical History Past Medical History: No Reported History Additional Past Medical History / Comment(s): diverticulitis, interstital cystitis History of Any Multi-Drug Resistant Organisms: None Reported Past Surgical History: Tonsillectomy Additional Past Surgical History / Comment(s): sinus surgery, vaginal cyst removed Past Anesthesia/Blood Transfusion Reactions: No Reported Reaction Past Psychological History: Anxiety Smoking Status: Never smoker Past Alcohol Use History: None Reported Past Drug Use History: None Reported General Exam Limitations: no limitations General appearance: alert, in no apparent distress Head exam: Present: atraumatic, normocephalic, normal inspection Eye exam: Present: normal appearance, PERRL, EOMI. Absent: scleral icterus, conjunctival injection, periorbital swelling ENT exam: Present: normal exam, mucous membranes moist Neck exam: Present: normal inspection, full ROM. Absent: tenderness, meningismus, lymphadenopathy Respiratory exam: Present: normal lung sounds bilaterally. Absent: respiratory distress, wheezes, rales, rhonchi, stridor Cardiovascular Exam: Present: regular rate, normal rhythm, normal heart sounds. Absent: systolic murmur, diastolic murmur, rubs, gallop, clicks GI/Abdominal exam: Present: soft, normal bowel sounds. Absent: distended, tenderness, guarding, rebound, rigid External exam: Present: normal external exam. Absent: erythema, swelling, lesions, lacerations, ecchymosis, other Speculum exam: Present: other (Possible cystocele noted however no uterine prolapse.). Absent: erythema, vaginal discharge, cervical discharge, vaginal bleeding, foreign body, tissue, laceration By manual exam: Present: normal by manual exam. Absent: cervical motion tenderness, adnexal tenderness, adnexal mass, uterine enlargement, uterine tenderness Neurological exam: Present: alert Course Vital Signs 03/04/20 03/04/20 17:40 19:26 Temperature 97.8 F Pulse Rate 104 H Respiratory 20 19 Rate Blood Pressure 145/94 O2 Sat by Pulse 95 Oximetry Medical Decision Making - Medical Decision Making Physical exam did not reveal uterine prolapse however there is a possible cystocele. Otherwise this is unremarkable. Urinalysis was obtained given dysuria which was negative. Patient was not retaining urine by bladder scan. I recommended that she follow up with her PSYCHOLOGIST EXPERIMENTAL as well as urology. Patient has a history of interstitial cystitis so he symptoms could also be related. I recommend she return here for any worsening symptoms and she is agreeable to [facility]. - Lab Data Lab Results 03/04/20 Range/Units 18:15 Urine Color Light Yellow Urine Appearance Clear (Clear) Urine pH 6.5 (5.0-8.0) Ur Specific [place] 1.005 (1.001-1.035) Urine Protein Trace H (Negative) Urine Glucose (UA) Negative (Negative) Urine Ketones Negative (Negative) Urine Blood Negative (Negative) Urine Nitrite Negative (Negative) Urine Bilirubin Negative (Negative) Urine Urobilinogen <2.0 (<2.0) mg/dL Ur Leukocyte Esterase Negative (Negative) Disposition Clinical Impression: Dysuria Disposition: HOME SELF-CARE Condition: Good Instructions (If sedation given, give patient instructions): Dysuria (ED) Additional Instructions: Please follow up with primary care in 1-2 days. He will likely need to follow up with an PSYCHOLOGIST EXPERIMENTAL. You should also see urology given your history of interstitial cystitis. Return here if you have any worsening symptoms. Is patient prescribed a controlled substance at d/c from ED?: No Referrals: Michela Reardon DO [Primary Care Provider] - 1-2 days Juan Cardoza MD [STAFF PHYSICIAN] - 1-2 days Time of Disposition: 18:34
[2020-03-04 20:33] VITALS: RESP 19
== END 2020-03-04 19:26 | disposition home or self-care (01) ==
LOC: EC 17:34
DX: R30.0 Dysuria (principal); Z88.1 Allergy status to other antibiotic agents; Z88.5 Allergy status to narcotic agent
CPT/HCPCS: 51798; 81003; 99284

== ENCOUNTER 2020-03-09 11:33 | Inpatient (IN) | payer BC ==
[2020-03-09] MEDS ORDERED: SODIUM CHLORIDE 0.9% 1,000 ML IV STA (11:38)
[2020-03-09 11:39] LABS: Glucose,Whole Blood 197 mg/dL (75-99)
--- NOTE | 2020-03-09 11:45 | ED ---
Overdose HPI - General Stated Complaint: overdose Time Seen by Provider: 03/09/20 11:33 Source: EMS, RN notes reviewed Mode of arrival: EMS - History of Present Illness Initial Comments: This is a 54-year-old female with an apparent history of a very bladder problem with pain apparently took as many as 170 10 mg Flexeril this morning approximately one half hour prior to paramedics being called. Per report it was an attempt to harm her self due to pain that she could not take it anymore. She is no prior history of known depression or suicidal ideation or thoughts. No other medical history immediately available at this time. Patient was noted by paramedics to have a blood pressure of 80/46 heart rate 1 4895% saturation on 2 L of oxygen. 10 breaths a minute. A capnography of 32. Patient did receive 1/2 L of saline and route to. Intent: suicide attempt - Related Data Previous Rx's Medication Instructions Recorded Lisinopril [Zestril] 5 mg PO DAILY 30 Days #30 tab 10/14/19 Allergies Allergy/AdvReac Type Severity Reaction Status Date / Time tetracycline Allergy Anaphylaxis Verified 03/09/20 13:23 codeine AdvReac Confusion Verified 03/09/20 13:23 Review of Systems ROS Statement: Those systems with pertinent positive or pertinent negative responses have been documented in the HPI. ROS Other: All systems not noted in ROS Statement are negative. Limitations: ROS unobtainable due to patients medical condition Past Medical History Past Medical History: No Reported History Additional Past Medical History / Comment(s): diverticulitis, interstital cystitis History of Any Multi-Drug Resistant Organisms: None Reported Past Surgical History: Tonsillectomy Additional Past Surgical History / Comment(s): sinus surgery, vaginal cyst removed Past Anesthesia/Blood Transfusion Reactions: No Reported Reaction Past Psychological History: Anxiety Smoking Status: Never smoker Past Alcohol Use History: None Reported Past Drug Use History: None Reported General Exam - General Exam Comments Initial Comments: This a well-developed well-nourished obtunded female who does respond to painful stimuli. Limitations: altered mental status, physical limitation General appearance: obtunded Head exam: Present: atraumatic, normocephalic, normal inspection Eye exam: Present: normal appearance, PERRL, EOMI. Absent: scleral icterus, conjunctival injection, periorbital swelling ENT exam: Present: mucous membranes dry Neck exam: Present: normal inspection, full ROM, other (No stridor JVD or bruits). Absent: tenderness, meningismus, lymphadenopathy Respiratory exam: Present: normal lung sounds bilaterally. Absent: respiratory distress, wheezes, rales, rhonchi, stridor Cardiovascular Exam: Present: normal rhythm, tachycardia, normal heart sounds. Absent: systolic murmur, diastolic murmur, rubs, gallop, clicks GI/Abdominal exam: Present: soft, normal bowel sounds. Absent: distended, tenderness, guarding, rebound, rigid, bruit, pulsatile mass, hernia Rectal exam: Present: deferred Extremities exam: Present: normal inspection, full ROM, normal capillary refill. Absent: tenderness, pedal edema, joint swelling, calf tenderness Back exam: Present: normal inspection Neurological exam: Present: alert, altered, CN II-XII intact Psychiatric exam: Present: other (Unable to evaluate due to the patient's physical condition) Skin exam: Present: warm, dry, intact, normal color. Absent: rash Course Vital Signs 03/09/20 03/09/20 03/09/20 11:38 11:54 12:00 Temperature 97.4 F L Pulse Rate 152 H 142 H 141 H Respiratory 12 16 20 Rate Blood Pressure 105/61 98/58 123/80 O2 Sat by Pulse 94 L 93 L 95 Oximetry 03/09/20 03/09/20 03/09/20 12:15 12:16 12:27 Temperature Pulse Rate 141 H 131 H Respiratory 20 20 18 Rate Blood Pressure 116/74 81/54 O2 Sat by Pulse 97 96 Oximetry 03/09/20 03/09/20 03/09/20 12:38 13:03 13:11 Temperature Pulse Rate 126 H 123 H 126 H Respiratory 20 18 18 Rate Blood Pressure 80/55 77/48 83/50 O2 Sat by Pulse 97 97 97 Oximetry 03/09/20 03/09/20 03/09/20 13:25 13:33 14:25 Temperature Pulse Rate 133 H 133 H 110 H Respiratory 20 18 18 Rate Blood Pressure 92/57 92/67 71/53 O2 Sat by Pulse 97 97 97 Oximetry 03/09/20 03/09/20 03/09/20 14:37 14:41 14:55 Temperature Pulse Rate 109 H 106 H 112 H Respiratory 15 15 16 Rate Blood Pressure 73/59 82/62 79/60 O2 Sat by Pulse 97 95 95 Oximetry - Reevaluation(s) Reevaluation #1: 03/09/20 11:47 The patient's initial blood pressure in emergency department was 105/61 with heart rate 154 this is after the 500 mL bolus by paramedics. He another liter bolus of normal saline at this time. Reevaluation #2: 03/09/20 12:54 I did discuss the case the patient's who did come the emergency department. 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 Reevaluation #3: 03/09/20 14:13 Reevaluation and discussion with the patient's . The patient is moving her extremities she did have a gag reflex on my examination. She is maintaining her blood pressure in the 90s. 03/09/20 14:13 Additional did discuss the case with Dr. Oliver Reevaluation #4: 03/09/20 15:12 Patient does have a gag reflex is becoming more responsive at this time I do not believe in the intubation is indicated Procedures - Central Line Placement Right SC Consent Obtained: verbal consent, emergent situation Patient Placed on Monitor/Pulse Ox: Yes Prep: mask, gown, gloves Central Line Prep: Chlorhexidine scrub Local Anesthesia Used: Lidocaine 1% Amount of Anesthesia Used (mls): 4 Ultrasound Used for Placement: No Central Line Lumen Inserted: triple Bloods Obtained for Lab: No Central Line Position: good blood return, all ports aspirated, flushed, capped, sutured in place with 3-0 nylon Dressing Applied: Tegaderm Post Procedure X-Ray: tip of catheter in good position Patient Tolerated Procedure: well Complications: none Medical Decision Making - Medical Decision Making I did reevaluate patient on multiple occasions her blood pressure initially was trending upwards with IV fluids was noted to be trending downward and requiring pressors. I did place a right subclavian central venous catheter triple lumen in place without difficulty. Questran we've fed was started to maintain blood pressure 100 systolic. Patient will be admitted to ICU the case is to be discussed with Dr. Rockwell. Patient maintains a gag reflex and seems to be more responsive to stimulation with movement of her extremities. - Lab Data Result diagrams: 03/09/20 11:38 03/09/20 11:38 Lab Results 03/09/20 03/09/20 03/09/20 Range/Units 11:00 11:00 11:37 WBC (3.8-10.6) k/uL RBC (3.80-5.40) m/uL Hgb (11.4-16.0) gm/dL Hct (34.0-46.0) % MCV (80.0-100.0) fL MCH (25.0-35.0) pg MCHC (31.0-37.0) g/dL RDW (11.5-15.5) % Plt Count (150-450) k/uL Neutrophils % % Lymphocytes % % Monocytes % % Eosinophils % % Basophils % % Neutrophils # (1.3-7.7) k/uL Lymphocytes # (1.0-4.8) k/uL Monocytes # (0-1.0) k/uL Eosinophils # (0-0.7) k/uL Basophils # (0-0.2) k/uL Sodium (137-145) mmol/L Potassium (3.5-5.1) mmol/L Chloride (98-107) mmol/L Carbon Dioxide (22-30) mmol/L Anion Gap mmol/L BUN (7-17) mg/dL Creatinine (0.52-1.04) mg/dL Est GFR (CKD-EPI)AfAm (>60 ml/min/1.73 sqM) Est GFR (CKD-EPI)NonAf (>60 ml/min/1.73 sqM) Glucose (74-99) mg/dL POC Glucose (mg/dL) 197 H (75-99) mg/dL POC Glu Asset Protection Agent ID Amado Ridley Lactic Ac Sepsis Rflx Plasma Lactic Acid Reuebn (0.7-2.0) mmol/L Calcium (8.4-10.2) mg/dL Total Bilirubin (0.2-1.3) mg/dL AST (14-36) U/L ALT (4-34) U/L Alkaline Phosphatase (38-126) U/L Creatine Kinase (30-135) U/L Total Protein (6.3-8.2) g/dL Albumin (3.5-5.0) g/dL Lipase (23-300) U/L Urine Color Yellow Urine Appearance Clear (Clear) Urine pH 6.0 (5.0-8.0) Ur Specific [place] 1.014 (1.001-1.035) Urine Protein Negative (Negative) Urine Glucose (UA) 2+ H (Negative) Urine Ketones Negative (Negative) Urine Blood Negative (Negative) Urine Nitrite Negative (Negative) Urine Bilirubin Negative (Negative) Urine Urobilinogen <2.0 (<2.0) mg/dL Ur Leukocyte Esterase Negative (Negative) Urine HCG, Qual Not Detected (Not Detectd) Salicylates mg/dL Urine Opiates Screen Not Detected (NotDetected) Ur Oxycodone Screen Not Detected (NotDetected) Urine Methadone Screen Not Detected (NotDetected) Ur Propoxyphene Screen Not Detected (NotDetected) Acetaminophen ug/mL Ur Barbiturates Screen Not Detected (NotDetected) U Tricyclic Antidepress Not Detected (NotDetected) Ur Phencyclidine Scrn Not Detected (NotDetected) Ur Amphetamines Screen Not Detected (NotDetected) U Methamphetamines Scrn Not Detected (NotDetected) U Benzodiazepines Scrn Not Detected (NotDetected) Urine Cocaine Screen Not Detected (NotDetected) U Marijuana (THC) Screen Not Detected (NotDetected) Serum Alcohol mg/dL Coronavirus (PCR) (Not Detectd) 03/09/20 03/09/20 03/09/20 Range/Units 11:38 11:38 11:38 WBC 5.9 (3.8-10.6) k/uL RBC 4.33 (3.80-5.40) m/uL Hgb 13.7 (11.4-16.0) gm/dL Hct 41.6 (34.0-46.0) % MCV 96.0 (80.0-100.0) fL MCH 31.6 (25.0-35.0) pg MCHC 32.9 (31.0-37.0) g/dL RDW 12.7 (11.5-15.5) % Plt Count 298 (150-450) k/uL Neutrophils % 58 % Lymphocytes % 33 % Monocytes % 5 % Eosinophils % 0 % Basophils % 0 % Neutrophils # 3.4 (1.3-7.7) k/uL Lymphocytes # 1.9 (1.0-4.8) k/uL Monocytes # 0.3 (0-1.0) k/uL Eosinophils # 0.0 (0-0.7) k/uL Basophils # 0.0 (0-0.2) k/uL Sodium 137 (137-145) mmol/L Potassium 3.4 L (3.5-5.1) mmol/L Chloride 107 (98-107) mmol/L Carbon Dioxide 21 L (22-30) mmol/L Anion Gap 9 mmol/L BUN 9 (7-17) mg/dL Creatinine 0.64 (0.52-1.04) mg/dL Est GFR (CKD-EPI)AfAm >90 (>60 ml/min/1.73 sqM) Est GFR (CKD-EPI)NonAf >90 (>60 ml/min/1.73 sqM) Glucose 211 H (74-99) mg/dL POC Glucose (mg/dL) (75-99) mg/dL POC Glu Asset Protection Agent ID Lactic Ac Sepsis Rflx Plasma Lactic Acid Reuben 2.2 H* (0.7-2.0) mmol/L Calcium 8.6 (8.4-10.2) mg/dL Total Bilirubin 0.5 (0.2-1.3) mg/dL AST 17 (14-36) U/L ALT 39 H (4-34) U/L Alkaline Phosphatase 139 H (38-126) U/L Creatine Kinase 25 L (30-135) U/L Total Protein 6.1 L (6.3-8.2) g/dL Albumin 3.5 (3.5-5.0) g/dL Lipase 126 (23-300) U/L Urine Color Urine Appearance (Clear) Urine pH (5.0-8.0) Ur Specific [place] (1.001-1.035) Urine Protein (Negative) Urine Glucose (UA) (Negative) Urine Ketones (Negative) Urine Blood (Negative) Urine Nitrite (Negative) Urine Bilirubin (Negative) Urine Urobilinogen (<2.0) mg/dL Ur Leukocyte Esterase (Negative) Urine HCG, Qual (Not Detectd) Salicylates <1.0 mg/dL Urine Opiates Screen (NotDetected) Ur Oxycodone Screen (NotDetected) Urine Methadone Screen (NotDetected) Ur Propoxyphene Screen (NotDetected) Acetaminophen <10.0 ug/mL Ur Barbiturates Screen (NotDetected) U Tricyclic Antidepress (NotDetected) Ur Phencyclidine Scrn (NotDetected) Ur Amphetamines Screen (NotDetected) U Methamphetamines Scrn (NotDetected) U Benzodiazepines Scrn (NotDetected) Urine Cocaine Screen (NotDetected) U Marijuana (THC) Screen (NotDetected) Serum Alcohol <10 mg/dL Coronavirus (PCR) (Not Detectd) 03/09/20 03/09/20 Range/Units 12:04 13:32 WBC (3.8-10.6) k/uL RBC (3.80-5.40) m/uL Hgb (11.4-16.0) gm/dL Hct (34.0-46.0) % MCV (80.0-100.0) fL MCH (25.0-35.0) pg MCHC (31.0-37.0) g/dL RDW (11.5-15.5) % Plt Count (150-450) k/uL Neutrophils % % Lymphocytes % % Monocytes % % Eosinophils % % Basophils % % Neutrophils # (1.3-7.7) k/uL Lymphocytes # (1.0-4.8) k/uL Monocytes # (0-1.0) k/uL Eosinophils # (0-0.7) k/uL Basophils # (0-0.2) k/uL Sodium (137-145) mmol/L Potassium (3.5-5.1) mmol/L Chloride (98-107) mmol/L Carbon Dioxide (22-30) mmol/L Anion Gap mmol/L BUN (7-17) mg/dL Creatinine (0.52-1.04) mg/dL Est GFR (CKD-EPI)AfAm (>60 ml/min/1.73 sqM) Est GFR (CKD-EPI)NonAf (>60 ml/min/1.73 sqM) Glucose (74-99) mg/dL POC Glucose (mg/dL) (75-99) mg/dL POC Glu Asset Protection Agent ID Lactic Ac Sepsis Rflx Y Plasma Lactic Acid Reuben (0.7-2.0) mmol/L Calcium (8.4-10.2) mg/dL Total Bilirubin (0.2-1.3) mg/dL AST (14-36) U/L ALT (4-34) U/L Alkaline Phosphatase (38-126) U/L Creatine Kinase (30-135) U/L Total Protein (6.3-8.2) g/dL Albumin (3.5-5.0) g/dL Lipase (23-300) U/L Urine Color Urine Appearance (Clear) Urine pH (5.0-8.0) Ur Specific [place] (1.001-1.035) Urine Protein (Negative) Urine Glucose (UA) (Negative) Urine Ketones (Negative) Urine Blood (Negative) Urine Nitrite (Negative) Urine Bilirubin (Negative) Urine Urobilinogen (<2.0) mg/dL Ur Leukocyte Esterase (Negative) Urine HCG, Qual (Not Detectd) Salicylates mg/dL Urine Opiates Screen (NotDetected) Ur Oxycodone Screen (NotDetected) Urine Methadone Screen (NotDetected) Ur Propoxyphene Screen (NotDetected) Acetaminophen ug/mL Ur Barbiturates Screen (NotDetected) U Tricyclic Antidepress (NotDetected) Ur Phencyclidine Scrn (NotDetected) Ur Amphetamines Screen (NotDetected) U Methamphetamines Scrn (NotDetected) U Benzodiazepines Scrn (NotDetected) Urine Cocaine Screen (NotDetected) U Marijuana (THC) Screen (NotDetected) Serum Alcohol mg/dL Coronavirus (PCR) Not Detected (Not Detectd) - EKG Data -: EKG Interpreted by Me EKG shows normal: sinus rhythm (Sinus tachycardia rate 155 QRS 90 QT/QTC 286/[address]-T wave configuration) Critical Care Time Critical Care Time: Yes Critical Care Time: 45 minutes critical care time which includes initial presentation with history physical discussed with paramedics discussed with the patient's 's labs x-rays multiple reevaluation the patient. This does not include the central line placement time. Is does include discussion with the admitting physician as well as financial systems director admission orders and documentation of the above. Disposition Clinical Impression: Drug overdose, Depression, Suicide attempt, Hypotensive episode Disposition: ADMITTED IP TO THIS HOSP Condition: Serious Referrals: Michela Reardon DO [Primary Care Provider] - 1-2 days
[2020-03-09 11:51] LABS: Basophils % (A) 0 %; Eosinophils % (A) 0 %; HCT 41.6 % (34.0-46.0); HGB 13.7 gm/dL (11.4-16.0); Lymphocytes # (A) 1.9 k/uL (1.0-4.8); Lymphocytes % (A) 33 %; MCH 31.6 pg (25.0-35.0); MCHC 32.9 g/dL (31.0-37.0); Mean Platelet Volume 8.2; Monocytes # (A) 0.3 k/uL (0-1.0); Monocytes % (A) 5 %; Neutrophils # (A) 3.4 k/uL (1.3-7.7); Neutrophils % (A) 58 %; Platelet Count 298 k/uL (150-450); RBC 4.33 m/uL (3.80-5.40); RDW 12.7 % (11.5-15.5); WBC 5.9 k/uL (3.8-10.6)
[2020-03-09 12:03] LABS: ALT 39 U/L (4-34); AST 17 U/L (14-36); Acetaminophen <10.0 ug/mL; African American GFR (CKD) >90 (>60 ml/min/1.73 sqM); Albumin 3.5 g/dL (3.5-5.0); Alcohol <10 mg/dL; Alkaline Phosphatase 139 U/L (38-126); Anion Gap 9 mmol/L; Blood Urea Nitrogen 9 mg/dL (7-17); Calcium 8.6 mg/dL (8.4-10.2); Carbon Dioxide 21 mmol/L (22-30); Chloride 107 mmol/L (98-107); Creatine Kinase 25 U/L (30-135); Glucose 211 mg/dL (74-99); Non-African American GFR(CKD) >90 (>60 ml/min/1.73 sqM); Potassium 3.4 mmol/L (3.5-5.1); Salicylate <1.0 mg/dL; Sodium 137 mmol/L (137-145); Total Bilirubin 0.5 mg/dL (0.2-1.3); Total Protein 6.1 g/dL (6.3-8.2)
[2020-03-09 12:05] LABS: Appearance,Urine Clear (Clear); Bilirubin,Urine Negative (Negative); Blood,Urine Negative (Negative); Color,Urine Yellow; Glucose,Urine (UA) 2+ (Negative); Ketones,Urine Negative (Negative); Leukocyte Esterase,Urine Negative (Negative); Nitrite,Urine Negative (Negative); Protein,Urine Negative (Negative); Specific Gravity,Urine 1.014 (1.001-1.035); Urobilinogen,Urine <2.0 mg/dL (<2.0)
[2020-03-09] MEDS ORDERED: NALOXONE 0.4 MG/ML 10 ML VIAL IVP PRN (12:14)
[2020-03-09] MEDS ORDERED: NALOXONE 0.4 MG/ML 1 ML VIAL IV PRN ×2 (12:15→15:13)
[2020-03-09 12:17] LABS: Amphetamine Screen,Urine Not Detected (NotDetected); Barbiturate Screen,Urine Not Detected (NotDetected); Benzodiazepines Screen,Urine Not Detected (NotDetected); Cocaine Screen,Urine Not Detected (NotDetected); Methadone Screen, Urine Not Detected (NotDetected); Opiate Screen,Urine Not Detected (NotDetected); Oxycodone Screen, Urine Not Detected (NotDetected); Phencyclidine Screen,Urine Not Detected (NotDetected); Tricyclic Antidepressant,Urine Not Detected (NotDetected); Urn Cannabinoid Scrn Not Detected (NotDetected)
--- NOTE | 2020-03-09 12:25 | XR ---
EXAMINATION TYPE: XR chest 1V portable DATE OF EXAM: 03/09/2020 Comparison: 10/11/2019 Clinical History: 54-year-old female Overdose Findings: Low lung volumes with crowded vascular markings. Mild patchy lower lung densities. Heart borderline i n size. Upper and mid lungs are clear. No sizable effusion. Impression: Hypoventilatory changes. Mild patchy lower lung areas of atelectasis rather than early infiltrate. Fo llow-up can be performed.
[2020-03-09] MEDS ORDERED: SODIUM CHLORIDE 0.9% 1,000 ML IV ONE (12:26)
[2020-03-09] MEDS: SODIUM CHLORIDE 0.9% 1,000 ML IV SCH ×2 (12:26→20:39)
[2020-03-09] MEDS ORDERED: SODIUM CHLORIDE 0.9% 500 ML 500 ML IV ONE (14:19)
--- NOTE | 2020-03-09 14:45 | CT ---
EXAMINATION TYPE: CT brain wo con DATE OF EXAM: 03/09/2020 COMPARISON: None HISTORY: 54-year-old female with confusion, altered mental status TECHNIQUE: Examination was done in axial plane without intravenous contrast. Coronal and sagittal r econstructions performed. CT DLP: 1099.4 mGycm Automated exposure control for dose reduction was used. FINDINGS: There is no evidence of acute intracranial hemorrhage, acute ischemic changes, mass, mass-effect, or extra-axial fluid collection. There is no effacement of cerebral sulci or basal subarachnoid cister ns. There is no hydrocephalus. There is no midline shift. Kwok-white matter distinction is preserv ed. And mild patchy white matter hypodensities such as in the subinsular regions suggesting changes of ch ronic small vessel ischemic disease. Trace mucosal thickening scattered within the ethmoid air cells. Mastoid air cells well pneumatized. Orbits and globes are intact. IMPRESSION: Mild patchy changes of chronic small vessel ischemic disease. No acute intracranial abnormality seen.
[2020-03-09] MEDS ORDERED: NOREPINEPHRINE 4 MG in SODIUM CHLORIDE 0.9% 250 ML IV ONE (14:53)
[2020-03-09] MEDS: NOREPINEPHRINE 32 MG in SODIUM CHLORIDE 0.9% 218 ML IV SCH (15:14)
--- NOTE | 2020-03-09 15:14 | XR ---
EXAMINATION TYPE: XR chest 1V confirm line [facility] DATE OF EXAM: 03/09/2020 COMPARISON: 03/09/2020 HISTORY: 54 year-old female line placement TECHNIQUE: Single frontal view of the chest is obtained. FINDINGS: Heart normal size. Mild interstitial density is present. Right subclavian CVC tip at the cavoatrial j unction. No consolidation or pleural effusion. IMPRESSION: 1. Right subclavian CVC tip at the cavoatrial junction. 2. Mild interstitial density, possible bronchitis or asthma.
[2020-03-09 16:06] LABS: Glucose,Whole Blood 100 mg/dL (75-99)
[2020-03-09 18:01] LABS: Magnesium 1.9 mg/dL (1.6-2.3); Potassium 4.7 mmol/L (3.5-5.1)
[2020-03-09] MEDS: MAGNESIUM SULFATE-D5W PMX 1 GM in DEXTROSE/WATER 1 100ML.BAG IVPB SCH ×2 (18:14→19:33)
[2020-03-10] MEDS: SODIUM CHLORIDE 0.9% 1,000 ML IV SCH ×4 (03:11→23:11)
[2020-03-10 05:46] LABS: Basophils % (A) 0 %; Eosinophils % (A) 0 %; HCT 38.8 % (34.0-46.0); HGB 12.3 gm/dL (11.4-16.0); Lymphocytes # (A) 0.9 k/uL (1.0-4.8); Lymphocytes % (A) 6 %; MCH 31.5 pg (25.0-35.0); MCHC 31.8 g/dL (31.0-37.0); MCV 99.1 fL (80.0-100.0); Mean Platelet Volume 7.9; Monocytes # (A) 0.6 k/uL (0-1.0); Monocytes % (A) 4 %; Neutrophils # (A) 13.6 k/uL (1.3-7.7); Neutrophils % (A) 90 %; Platelet Count 243 k/uL (150-450); RBC 3.91 m/uL (3.80-5.40); RDW 12.7 % (11.5-15.5); WBC 15.2 k/uL (3.8-10.6)
[2020-03-10 06:26] LABS: ALT 34 U/L (4-34); AST 16 U/L (14-36); African American GFR (CKD) >90 (>60 ml/min/1.73 sqM); Albumin 3.3 g/dL (3.5-5.0); Alkaline Phosphatase 110 U/L (38-126); Anion Gap 7 mmol/L; Blood Urea Nitrogen 7 mg/dL (7-17); Calcium 8.4 mg/dL (8.4-10.2); Carbon Dioxide 23 mmol/L (22-30); Chloride 106 mmol/L (98-107); Glucose 96 mg/dL (74-99); Non-African American GFR(CKD) >90 (>60 ml/min/1.73 sqM); Potassium 4.2 mmol/L (3.5-5.1); Sodium 136 mmol/L (137-145); Total Bilirubin 0.3 mg/dL (0.2-1.3); Total Protein 5.8 g/dL (6.3-8.2)
[2020-03-10] MEDS: PANTOPRAZOLE 40 MG/10 ML VIAL IV SCH (08:10)
--- NOTE | 2020-03-10 12:00 | P.CNPUL ---
History of Present Illness Consult date: 03/10/20 Requesting physician: Breann Shelton Reason for consult: other (Flexeril overdose) Chief complaint: Suicidal attempt History of present illness: This is a 54-year-old female with history of hypertension, chronic urinary bladder issues, chronic pain syndrome, patient decided on her own to intention ally take significant amount of Flexeril 10 mg tablets, attempting to commit suicide. This was done mostly because she couldn't take the pain anymore. No known history of depression or suicidal ideations. Patient is known to have history of interstitial cystitis, anxiety, and previous history of suicidal ideations. This is noted on her previous evaluation back in September of 2019. Known history of benzodiazepine abuse. And history of withdrawal from benzodiazepines. At any rate patient is not a great historian, patient was evaluated in the ER, she was hypotensive at one point, his fluid boluses were given, initially admitted to the intensive care unit after a central line was placed by the ER physician, and the patient remained hemodynamically stable overnight. Patient is nonverbal, and seems to be sedated, but arousable, and follows simple instructions. Mostly squeezing hands and wiggling toes. She does not seem to be in any respiratory distress during my evaluation. Chest x- ray is basically unremarkable. Right subclavian central line seems to be in the proper position. Patient is hemodynamically stable, blood pressure is 104/71, she is on O2 liters via nasal cannula and O2 saturation is 97%, and she has a sinus rhythm/sinus tachycardia rate of 107. Again not much information could be obtained from the patient herself. Review of Systems ROS unobtainable: due to mental status Past Medical History Past Medical History: No Reported History Additional Past Medical History / Comment(s): diverticulitis, interstital cystitis History of Any Multi-Drug Resistant Organisms: None Reported Past Surgical History: Tonsillectomy Additional Past Surgical History / Comment(s): sinus surgery, vaginal cyst removed Past Anesthesia/Blood Transfusion Reactions: No Reported Reaction Past Psychological History: Anxiety Smoking Status: Never smoker Past Alcohol Use History: None Reported Past Drug Use History: None Reported Medications and Allergies Home Medications Medication Instructions Recorded Confirmed Type Lisinopril [Zestril] 5 mg PO DAILY 30 Days #30 tab 10/14/19 03/09/20 Rx Allergies Allergy/AdvReac Type Severity Reaction Status Date / Time tetracycline Allergy Anaphylaxis Verified 03/09/20 13:23 codeine AdvReac Confusion Verified 03/09/20 13:23 Physical Exam Vitals: Vital Signs Temp Pulse Resp BP Pulse Ox 03/10/20 11:30 107 H 16 104/71 95 03/10/20 11:00 108 H 19 107/73 97 03/10/20 10:30 109 H 19 106/74 96 03/10/20 10:00 107 H 18 111/71 98 03/10/20 09:30 108 H 16 108/81 98 03/10/20 09:00 107 H 14 110/75 99 03/10/20 08:30 112 H 19 123/74 97 03/10/20 08:00 98.1 F 112 H 18 126/80 98 03/10/20 07:30 120 H 14 126/77 95 03/10/20 07:00 107 H 13 119/74 95 03/10/20 06:30 105 H 22 117/72 96 03/10/20 06:00 103 H 14 118/70 95 03/10/20 05:30 103 H 15 111/67 94 L 03/10/20 05:00 105 H 15 113/65 94 L 03/10/20 04:30 104 H 17 114/71 94 L 03/10/20 04:00 97.8 F 105 H 18 124/73 94 L 03/10/20 03:30 108 H 21 117/74 94 L 03/10/20 03:00 106 H 18 109/67 95 03/10/20 02:30 107 H 21 116/68 95 03/10/20 02:00 112 H 22 113/64 96 03/10/20 01:30 112 H 21 111/72 96 03/10/20 01:00 121 H 22 115/68 96 03/10/20 00:30 112 H 23 116/73 96 03/10/20 00:25 112 H 20 116/73 96 03/10/20 00:00 98.0 F 112 H 21 118/78 96 03/09/20 23:30 112 H 21 113/75 96 03/09/20 23:00 112 H 20 106/77 96 03/09/20 22:30 112 H 20 134/87 96 03/09/20 22:00 114 H 24 111/75 96 03/09/20 21:30 115 H 24 107/81 95 03/09/20 21:00 123 H 42 H 114/75 95 03/09/20 20:30 118 H 19 119/74 94 L 03/09/20 20:00 97.7 F 124 H 20 114/76 95 03/09/20 19:30 123 H 18 105/87 96 03/09/20 19:00 125 H 18 120/82 97 03/09/20 18:30 128 H 18 112/80 96 03/09/20 18:00 126 H 19 105/70 95 03/09/20 17:30 129 H 17 89/66 96 03/09/20 17:00 131 H 17 84/63 96 03/09/20 16:30 128 H 16 148/89 98 03/09/20 16:02 96 F L 133 H 12 124/99 99 03/09/20 15:35 129 H 15 102/84 100 03/09/20 15:17 122 H 16 93/68 99 03/09/20 15:13 117 H 15 88/59 99 03/09/20 14:55 112 H 16 79/60 95 03/09/20 14:41 106 H 15 82/62 95 03/09/20 14:37 109 H 15 73/59 97 03/09/20 14:25 110 H 18 71/53 97 03/09/20 13:33 133 H 18 92/67 97 03/09/20 13:25 133 H 20 92/57 97 03/09/20 13:11 126 H 18 83/50 97 03/09/20 13:03 123 H 18 77/48 97 03/09/20 12:38 126 H 20 80/55 97 03/09/20 12:27 131 H 18 81/54 96 03/09/20 12:16 20 03/09/20 12:15 141 H 20 116/74 97 03/09/20 12:00 141 H 20 123/80 95 03/09/20 11:54 142 H 16 98/58 93 L Intake and Output 03/09/20 03/10/20 03/10/20 22:59 06:59 14:59 Intake Total 1608.944 9940 665.796 Output Total 825 305 685 Balance 292.546 735 -19.204 Intake: Intake, IV Titration 2425.639 7130 665.796 Amount Magnesium Sulfate-D5w Pmx 200 1 gm In Dextrose/Water 1 100ml.bag @ 100 mls/hr IVPB Q1H ADDIE Rx#: [id number] Norepinephrine 32 mg In 7.546 15.796 Sodium Chloride 0.9% 218 ml @ 0.05 MCG/KG/MIN 1. 656 mls/hr IV .Q24H ADDIE Rx#:[id number] Sodium Chloride 0.9% 1, 910 1040 650 000 ml @ 130 mls/hr IV . Q7H42M ADDIE Rx#:[id number] Output: Urine 825 305 685 Other: Voiding Method Indwelling Catheter Indwelling Catheter Indwelling Catheter Weight 70.67 kg 70.9 kg Physical Exam: Revealed a 54-year-old female, sleepy, lethargic, but arousable, follows simple instructions. Head: Atraumatic normocephalic. HEENT:[Neck is supple.] [No neck masses.] [No thyromegaly.] [No JVD.] PERRLA, EOMI, no icterus, moist mucous membranes. Chest: [Clear throughout, no crackles, no rhonchi, no wheezes.] Right subclavian central line is noted. Cardiac Exam: [Normal S1 and S2, no S3 gallop, no murmur.] Abdomen: [Soft, nontender, no megaly, no rebound, no guarding, normal bowel sounds.] Extremities: [No clubbing, no edema, no cyanosis.] Neurological Exam: Opens eyes, follows instructions/simple instructions like squeezing hands. Otherwise nonverbal. Psychiatric: Blunted affect, depressed mood, poor mental status and judgment at this point. Skin: No rashes. Lymphatics: No lymphadenopathy. Results - Laboratory Findings CBC and BMP: 03/10/20 04:32 03/10/20 04:32 Abnormal lab findings: Abnormal Labs 03/09/20 03/09/20 03/09/20 11:00 11:37 11:38 WBC Neutrophils # Lymphocytes # Sodium Potassium 3.4 L Carbon Dioxide 21 L Creatinine Glucose 211 H POC Glucose (mg/dL) 197 H Plasma Lactic Acid Reuben Magnesium ALT 39 H Alkaline Phosphatase 139 H Creatine Kinase 25 L Total Protein 6.1 L Albumin Urine Glucose (UA) 2+ H 03/09/20 03/09/20 03/09/20 11:38 16:04 22:39 WBC Neutrophils # Lymphocytes # Sodium Potassium Carbon Dioxide Creatinine Glucose POC Glucose (mg/dL) 100 H Plasma Lactic Acid Reuben 2.2 H* Magnesium 2.6 H ALT Alkaline Phosphatase Creatine Kinase Total Protein Albumin Urine Glucose (UA) 03/10/20 03/10/20 04:32 04:32 WBC 15.2 H Neutrophils # 13.6 H Lymphocytes # 0.9 L Sodium 136 L Potassium Carbon Dioxide Creatinine 0.50 L Glucose POC Glucose (mg/dL) Plasma Lactic Acid Reuben Magnesium ALT Alkaline Phosphatase Creatine Kinase Total Protein 5.8 L Albumin 3.3 L Urine Glucose (UA) - Diagnostic Findings Chest x-ray: image reviewed (As noted in HPI.) Assessment and Plan Assessment: Impression: Flexeril overdose. Intentional suicidal attempt History of major depressive disorder. History of chronic pain syndrome History of chronic interstitial cystitis History of generalized anxiety disorder. Hypovolemia on presentation mostly secondary to Flexeril overdose and possibly some component of hypovolemia. Responded well to fluids only. Recommendation: Continue to monitor the patient in the ICU. Continue O2 at 2 L nasal cannula. Continue suicidal precautions. Psychiatric consultation. We'll continue to follow. Time with Patient: Greater than 30
[2020-03-10] MEDS: NOREPINEPHRINE 32 MG in SODIUM CHLORIDE 0.9% 218 ML IV SCH (14:43)
--- NOTE | 2020-03-10 22:52 | P.HPIM ---
History of Present Illness H&P Date: 03/10/20 Chief Complaint: AMS, overdose Niki Powers is a 54 yo F with PMH of chronic pain, interstitial cystitis, major depression, history of suicide attempt who presented to the ED after an intentional overdose at home. Apparently, the pt took around 170 flexeril 10 mg tablets in an attempt to take her life and because she couldn't handle the pain. Upon arrival she was hypotensive and tachycardic with HR in 150s and BP 90/50s. She did respond to IV fluid hydration and was placed on nasal cannula. EKG, CT head and CXR unremarkable. UDS negative. Pt was admitted to the ICU and monitored overnight. This am, she is rousable but nonverbal, able to follow simple commands. Review of Systems ROS unobtainable: due to mental status Constitutional: Reports chills, Reports fever Eyes: denies blurred vision, denies pain Ears, nose, mouth and throat: Denies headache, Denies sore throat Cardiovascular: Denies chest pain, Denies shortness of breath Respiratory: Denies cough Gastrointestinal: Denies abdominal pain, Denies diarrhea, Denies nausea, Denies vomiting Genitourinary: Denies dysuria, Denies hematuria Musculoskeletal: Denies myalgias Integumentary: Denies pruritus, Denies rash Neurological: Denies numbness, Denies weakness Psychiatric: Reports suicidal ideation, Denies anxiety, Denies depression Endocrine: Denies fatigue, Denies weight change Past Medical History Past Medical History: No Reported History Additional Past Medical History / Comment(s): diverticulitis, interstital cystitis History of Any Multi-Drug Resistant Organisms: None Reported Past Surgical History: Tonsillectomy Additional Past Surgical History / Comment(s): sinus surgery, vaginal cyst removed Past Anesthesia/Blood Transfusion Reactions: No Reported Reaction Past Psychological History: Anxiety Smoking Status: Never smoker Past Alcohol Use History: None Reported Past Drug Use History: None Reported Medications and Allergies Home Medications Medication Instructions Recorded Confirmed Type Lisinopril [Zestril] 5 mg PO DAILY 30 Days #30 tab 10/14/19 03/09/20 Rx Allergies Allergy/AdvReac Type Severity Reaction Status Date / Time tetracycline Allergy Anaphylaxis Verified 03/09/20 13:23 codeine AdvReac Confusion Verified 03/09/20 13:23 Physical Exam Vitals: Vital Signs Temp Pulse Resp BP Pulse Ox 03/10/20 22:00 100 16 122/79 95 03/10/20 21:00 111 H 13 116/69 95 03/10/20 20:00 98.2 F 102 H 19 108/97 95 03/10/20 19:00 96 20 113/74 97 03/10/20 18:00 94 18 103/73 97 03/10/20 17:00 98 15 99/68 98 03/10/20 16:00 98 F 98 16 107/65 97 03/10/20 15:00 98 16 112/68 98 03/10/20 14:00 98 17 110/90 96 03/10/20 13:00 104 H 14 111/75 95 03/10/20 12:30 101 H 18 104/72 95 03/10/20 12:00 98 F 105 H 16 108/79 95 03/10/20 11:30 107 H 16 104/71 95 03/10/20 11:00 108 H 19 107/73 97 03/10/20 10:30 109 H 19 106/74 96 03/10/20 10:00 107 H 18 111/71 98 03/10/20 09:30 108 H 16 108/81 98 03/10/20 09:00 107 H 14 110/75 99 03/10/20 08:30 112 H 19 123/74 97 03/10/20 08:00 98.1 F 112 H 18 126/80 98 03/10/20 07:30 120 H 14 126/77 95 03/10/20 07:00 107 H 13 119/74 95 03/10/20 06:30 105 H 22 117/72 96 03/10/20 06:00 103 H 14 118/70 95 03/10/20 05:30 103 H 15 111/67 94 L 03/10/20 05:00 105 H 15 113/65 94 L 03/10/20 04:30 104 H 17 114/71 94 L 03/10/20 04:00 97.8 F 105 H 18 124/73 94 L 03/10/20 03:30 108 H 21 117/74 94 L 03/10/20 03:00 106 H 18 109/67 95 03/10/20 02:30 107 H 21 116/68 95 03/10/20 02:00 112 H 22 113/64 96 03/10/20 01:30 112 H 21 111/72 96 03/10/20 01:00 121 H 22 115/68 96 03/10/20 00:30 112 H 23 116/73 96 03/10/20 00:25 112 H 20 116/73 96 03/10/20 00:00 98.0 F 112 H 21 118/78 96 03/09/20 23:30 112 H 21 113/75 96 03/09/20 23:00 112 H 20 106/77 96 Intake and Output 03/10/20 03/10/20 03/10/20 06:59 14:59 22:59 Intake Total 1040 1777.830 2320 Output Total 305 1035 840 Balance 735 20.796 200 Intake: Intake, IV Titration 1040 4136.804 5026 Amount Norepinephrine 32 mg In 15.796 Sodium Chloride 0.9% 218 ml @ 0.05 MCG/KG/MIN 1. 656 mls/hr IV .Q24H [facility] Rx#:[id number] Sodium Chloride 0.9% 1, 1040 1040 1040 000 ml @ 130 mls/hr IV . Q7H42M [facility] Rx#:[id number] Output: Urine 305 1035 840 Other: Voiding Method Indwelling Catheter Indwelling Catheter Indwelling Catheter Weight 70.9 kg General: well nourished, well developed, NAD. Vitals reviewed Eyes: PERRL, EOMI, conjunctiva normal HENT: normocephalic, mucus membranes moist Neck: supple, no JVD Lungs: normal respiratory effort, no wheezes or rales CV: Regular rate and rhythm, no murmur. Peripheral pulses 2+ Abdomen: soft, nondistended, no organomegaly Lymph: no cervical or axillary LAD Skin: warm and dry. Neuro: Alert, rouses to voice. Unable to answer questions. Pump Room Operator str 5/5. Allodynia to BLE Results CBC & Chem 7: 03/10/20 04:32 03/10/20 04:32 Labs: Abnormal Lab Results - Last 24 Hours (Table) 03/09/20 03/10/20 03/10/20 Range/Units 22:39 04:32 04:32 WBC 15.2 H (3.8-10.6) k/uL Neutrophils # 13.6 H (1.3-7.7) k/uL Lymphocytes # 0.9 L (1.0-4.8) k/uL Sodium 136 L (137-145) mmol/L Creatinine 0.50 L (0.52-1.04) mg/dL Magnesium 2.6 H (1.6-2.3) mg/dL Total Protein 5.8 L (6.3-8.2) g/dL Albumin 3.3 L (3.5-5.0) g/dL Assessment and Plan (1) Toxic encephalopathy Current Visit: Yes Status: Acute Code(s): G92 - TOXIC ENCEPHALOPATHY SNOMED Code(s): 64969539 (2) Suicide attempt Current Visit: Yes Status: Acute Code(s): T14.91XA - SUICIDE ATTEMPT, INITIAL ENCOUNTER SNOMED Code(s): 16102843 (3) Hypotension Current Visit: Yes Status: Acute Code(s): I95.9 - HYPOTENSION, UNSPECIFIED SNOMED Code(s): 28101249 (4) Suicide attempt Current Visit: Yes Status: Acute Code(s): T14.91XA - SUICIDE ATTEMPT, INITIAL ENCOUNTER SNOMED Code(s): 44625140 Plan: 1. Toxic encephalopathy due to flexeril overdose. Admit to ICU, pt currently protecting her airway, monitor closely, IV fluids 2. Suicidal ideation. She will need psychiatric evaluation after she is medically stabilized 3. Aphasia. related to overdose, monitor closely and consider repeat imaging 4. Hypotension. Resolved with IVF
[2020-03-11] MEDS: SODIUM CHLORIDE 0.9% 1,000 ML IV SCH ×2 (05:29→12:41)
[2020-03-11 05:45] LABS: Basophils % (A) 0 %; Eosinophils % (A) 0 %; HGB 12.8 gm/dL (11.4-16.0); Lymphocytes % (A) 4 %; MCH 30.7 pg (25.0-35.0); MCHC 31.2 g/dL (31.0-37.0); MCV 98.4 fL (80.0-100.0); Monocytes % (A) 5 %; Neutrophils # (A) 19.3 k/uL (1.3-7.7); Neutrophils % (A) 90 %; Platelet Count 209 k/uL (150-450); RBC 4.16 m/uL (3.80-5.40); WBC 21.4 k/uL (3.8-10.6)
[2020-03-11 05:58] LABS: ALT 28 U/L (4-34); AST 23 U/L (14-36); African American GFR (CKD) >90 (>60 ml/min/1.73 sqM); Albumin 3.6 g/dL (3.5-5.0); Alkaline Phosphatase 135 U/L (38-126); Anion Gap 9 mmol/L; Blood Urea Nitrogen 6 mg/dL (7-17); Calcium 8.7 mg/dL (8.4-10.2); Carbon Dioxide 25 mmol/L (22-30); Chloride 104 mmol/L (98-107); Glucose 97 mg/dL (74-99); Non-African American GFR(CKD) >90 (>60 ml/min/1.73 sqM); Potassium 3.7 mmol/L (3.5-5.1); Sodium 138 mmol/L (137-145); Total Bilirubin 0.7 mg/dL (0.2-1.3); Total Protein 6.2 g/dL (6.3-8.2)
[2020-03-11] MEDS: POTASSIUM CHLORIDE 10 MEQ in WATER FOR INJECTION 1 100ML.BAG IVPB SCH ×4 (06:57→17:49)
[2020-03-11] MEDS ORDERED: SODIUM CHLORIDE 0.9% 500 ML 500 ML IV ONE (08:45)
[2020-03-11] MEDS: PIPERACILLIN-TAZOBACTAM 3.375 GM in SODIUM CHLORIDE 0.9% 100 ML IVPB SCH ×3 (09:11→23:23)
[2020-03-11] MEDS: ENOXAPARIN 40 MG/0.4 ML SYRINGE SQ SCH (09:11)
[2020-03-11] MEDS: PANTOPRAZOLE 40 MG/10 ML VIAL IV SCH (09:11)
--- NOTE | 2020-03-11 10:27 | P.CN ---
Psychiatric Consult - . Consult date: 03/11/20 Consult:: IDENTIFYING DATA: She is a 54-year-old female who was discharged from the psychiatric unit on 10/10/2019 with the diagnoses of major depressive disorder, benzodiazepine withdrawal, chronic prescription benzodiazepine use have a generalized anxiety. HISTORY OF PRESENT ILLNESS: I reviewed the medical record and attempted to interview the patient. The EMS brought her to the ED where or treatment of suicide attempt by overdose what was reported as 1700 mg of Flexeril morning of 03/09/2020. She was admitted to the ICU for treatment of acute drug overdose. She has been obtunded but responds to verbal cues. She was laying in bed and her one-to-one was in attendance. She made eye contact with her speech was slurred and not coherent. PAST PSYCHIATRIC HISTORY: She had one admission to our psychiatric unit in September 2019. She was discharged on 10/19/2019 with the diagnoses of suicidal ideation, major depressive disorder, benzodiazepine withdrawal, chronic prescription benzodiazepine use and generalized anxiety disorder. We referred her to [facility] for outpatient mental health services. PAST MEDICAL HISTORY: See medical H&P ALLERGIES: Tetracycline codeine. SUBSTANCE USE HISTORY: She denied history of alcohol or drug use problems. However, she has taken benzodiazepines for several years for treatment of interstitial nephritis. We've had concerns that her use was excessive and resulted in withdrawal. She is never been any substance abuse treatment program. She denied that family or friends have complained to her about her drug use with the exception of Ativan.. FAMILY PSYCHIATRIC/SUBSTANCE USE HISTORY: Her mother attempted suicide prior to her marriage with her father. Her first and history of alcohol or drug use problems. His history of depression and alcohol problems. SOCIAL HISTORY: Her mother left when the patient was sent 10 years". 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 She denied distant relationship with her father. She felt alone and abandoned during her childhood and adolescence. She graduated from high school and attended [employer] but did not obtain a degree. She remarried twice. First marriage lasted 12 years and she had 2 children. She met her current 12 years ago and they've been for 8 years. 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 MENTAL STATUS EXAM: She presented as a thin and frail-appearing 54-year-old female who is laying comfortably in bed. She made eye contact and attempted to communicate. Her speech was slurred and noncoherent.. IMPRESSIONS: She has a history of a benzodiazepine use as well as major depressive disorder. [facility] an intentional overdose of Flexeril. She is unable to provide a coherent history because she has not recovered from the Flexeril overdose. PLAN: She is not appropriate for transfer to the psychiatric unit at this time. Psychiatry will follow.. 03/11/20 09:34
--- NOTE | 2020-03-11 10:46 | XR ---
EXAMINATION TYPE: XR chest 1V portable DATE OF EXAM: 03/11/2020 COMPARISON: 03/09/2020 HISTORY: Leukocytosis TECHNIQUE: Single frontal view of the chest is obtained. FINDINGS: New left-sided basilar opacity is now seen. Platelike right basilar atelectasis is linear horizontally oriented. Right-sided subclavian approach central venous catheter is unchanged. No pneum othorax. Stable cardiomediastinal silhouette. IMPRESSION: New left basilar airspace disease in combination with this patient's leukocytosis favors pneumonia.
--- NOTE | 2020-03-11 13:00 | P.PN ---
Subjective Progress Note Date: 03/11/20 Nkii Powers is a 54 yo F with PMH of chronic pain, interstitial cystitis, major depression, history of suicide attempt who presented to the ED after an intentional overdose at home. Apparently, the pt took around 170 flexeril 10 mg tablets in an attempt to take her life and because she couldn't handle the pain. Upon arrival she was hypotensive and tachycardic with HR in 150s and BP 90/50s. She did respond to IV fluid hydration and was placed on nasal cannula. EKG, CT head and CXR unremarkable. UDS negative. Pt was admitted to the ICU and monitored overnight. This am, she is rousable but nonverbal, able to follow simple commands. 03/11/20 more arousable this morning, droggy, makes eye contact, follows simple commands, not talking, expressive aphasia. Chest x-ray reporting new left basilar airspace disease, possible pneumonia. Afebrile, elevated WBC 21.4. Mildly Elevated alk phos. evaluated by psychiatry with recommendations noted and appreciated. Objective - Vital Signs Vital signs: Vital Signs Temp 98.6 F 03/11/20 04:00 Pulse 112 H 03/11/20 07:00 Resp 25 H 03/11/20 07:00 BP 154/97 03/11/20 07:00 Pulse Ox 94 L 03/11/20 07:00 Intake & Output 03/10/20 03/11/20 03/11/20 18:59 06:59 18:59 Intake Total 7551.624 6037 130 Output Total 1500 2075 200 Balance 75.796 -515 -70 Weight 66.9 kg Intake: Intake, IV Titration 4918.294 0634 130 Amount Norepinephrine 32 mg In 15.796 Sodium Chloride 0.9% 218 ml @ 0.05 MCG/KG/MIN 1. 656 mls/hr IV .Q24H [facility] Rx#:[id number] Sodium Chloride 0.9% 1, 1560 1560 130 000 ml @ 130 mls/hr IV . Q7H42M [facility] Rx#:[id number] Output: Urine 1500 2075 200 Other: Voiding Method Indwelling Catheter Indwelling Catheter - Exam General: well nourished, well developed, drowsy Eyes: PERRL, EOMI, conjunctiva normal. HENT: normocephalic, mucus membranes moist Neck: supple, no JVD Lungs: normal respiratory effort, essentially clear, no wheezes or rales CV: Regular rate and rhythm, no murmur. Peripheral pulses 2+ Abdomen: soft, nondistended, no organomegaly Lymph: no cervical or axillary LAD Skin: warm and dry. Neuro: Alert, rouses to voice. Unable to answer questions. Currently not talking .Director Of Program Management str 5/5. Allodynia to BLE. Follow simple commands. - Labs CBC & Chem 7: 03/11/20 04:41 03/11/20 04:41 Labs: Abnormal Lab Results - Last 24 Hours (Table) 03/11/20 03/11/20 Range/Units 04:41 04:41 WBC 21.4 H (3.8-10.6) k/uL Neutrophils # 19.3 H (1.3-7.7) k/uL BUN 6 L (7-17) mg/dL Alkaline Phosphatase 135 H (38-126) U/L Total Protein 6.2 L (6.3-8.2) g/dL Assessment and Plan Assessment: (1) Toxic encephalopathy, secondary to overdose of Flexeril. Current Visit: Yes Status: Acute Code(s): G92 - TOXIC ENCEPHALOPATHY SNOMED Code(s): 36131972 (2) Suicide attempt Current Visit: Yes Status: Acute Code(s): T14.91XA - SUICIDE ATTEMPT, INITIAL ENCOUNTER SNOMED Code(s): 66935007 (3) Hypotension, resolved with IV fluid hydration Current Visit: Yes Status: Acute Code(s): I95.9 - HYPOTENSION, UNSPECIFIED SNOMED Code(s): 37663038 (4) Aphasia related to overdose.Concern now is that patient may have had extended downtime with clinical presentation of expressive aphasia. Repeat CT pending. (5) history of benzodiazepine abuse (6) major depressive disorder (7) possible left basilar pneumonia, aspiration (8) leukocytosis secondary to the above Plan: Continue on current medication regime ,monitoring and symptomatic treatment. Repeat CT pending. Suicide precautions. Maintain Zosyn. GI pr ophylaxis with Protonix, DVT prophylaxis in place with Lovenox. Follow closely with pulmonary and psychiatry. The impression and plan of care has been dictated as directed. : I performed a history and examination of this patient, discussed the same with the dictator. I agree with the dictator's note ,documented as a scribe. Any additional findings or plans will be noted.
--- NOTE | 2020-03-11 13:07 | P.PN ---
Subjective Progress Note Date: 03/11/20 Principal diagnosis: Drug overdose, suicidal attempt. This is a 54-year-old female with history of hypertension, chronic urinary bladder issues, chronic pain syndrome, patient decided on her own to intentionally take significant amount of Flexeril 10 mg tablets, attempting to commit suicide. This was done mostly because she couldn't take the pain anymore. No known history of depression or suicidal ideations. Patient is known to have history of interstitial cystitis, anxiety, and previous history of suicidal ideations. This is noted on her previous evaluation back in September of 2019. Known history of benzodiazepine abuse. And history of withdrawal from benzodiazepines. At any rate patient is not a great historian, patient was evaluated in the ER, she was hypotensive at one point, his fluid boluses were given, initially admitted to the intensive care unit after a central line was placed by the ER physician, and the patient remained hemodynamically stable over night. Patient is nonverbal, and seems to be sedated, but arousable, and follows simple instructions. Mostly squeezing hands and wiggling toes. She does not seem to be in any respiratory distress during my evaluation. Chest x- ray is basically unremarkable. Right subclavian central line seems to be in the proper position. Patient is hemodynamically stable, blood pressure is 104/71, she is on O2 liters via nasal cannula and O2 saturation is 97%, and she has a sinus rhythm/sinus tachycardia rate of 107. Again not much information could be obtained from the patient herself. Reevaluated today on 03/11/20, patient remains in the ICU, on 2 L nasal cannula, sedated, not agitated at all. Patient is calm, she is tachycardic, rate is 110- 120. Chest x-ray showed a left lower lobe infiltrate which is new hence his Zosyn was added. Patient has slurred speech, and does not seem to be quite coh erent. But clearly she is not in any form of respiratory distress labs today showed leukocytosis with WBC count of 21.4, otherwise her labs are basically unremarkable. Again her chest x-ray showed a new left lower lobe infiltrate, and that would likely explain her leukocytosis. Objective - Vital Signs Vital signs: Vital Signs Temp 98.7 F 03/11/20 12:00 Pulse 98 03/11/20 12:00 Resp 10 L 03/11/20 11:00 BP 114/69 03/11/20 12:00 Pulse Ox 96 03/11/20 12:00 Intake & Output 03/10/20 03/11/20 03/11/20 18:59 06:59 18:59 Intake Total 8767.921 2240 1480 Output Total 1500 2075 1300 Balance 75.796 -515 180 Weight 66.9 kg Intake: IV 650 Sodium Chloride 0.9% 1, 650 000 ml @ 130 mls/hr IV . Q7H42M [facility] Rx#:[id number] Intake, IV Titration 2681.653 7623 830 Amount Norepinephrine 32 mg In 15.796 Sodium Chloride 0.9% 218 ml @ 0.05 MCG/KG/MIN 1. 656 mls/hr IV .Q24H [facility] Rx#:[id number] Piperacillin-Tazobactam 3 100 .375 gm In Sodium Chloride 0.9% 100 ml @ 25 mls/hr IVPB Q8HR [facility] Rx# :[id number] Potassium Chloride 10 meq 100 In Water For Injection 1 100ml.bag @ 100 mls/hr IVPB Q1H [facility] Rx#: [id number] Sodium Chloride 0.9% 1, 1560 1560 130 000 ml @ 130 mls/hr IV . Q7H42M [facility] Rx#:[id number] Sodium Chloride 0.9% 500 500 ml 500 ml @ 999 mls/hr IV .Q31M [facility] Rx#:[id number] Output: Urine 1500 2075 1300 Other: Voiding Method Indwelling Catheter Indwelling Catheter Indwelling Catheter - Exam Physical Exam: Revealed a 54-year-old female, sleepy, lethargic, but arousable, follows simple instructions. Wiggling toes and squeezing hands. Speech is noted to be slurred. Head: Atraumatic normocephalic. HEENT:[Neck is supple.] [No neck masses.] [No thyromegaly.] [No JVD.] PERRLA, EOMI, no icterus, moist mucous membranes. Chest: [Clear throughout, no crackles, no rhonchi, no wheezes.] Right subclavian central line is noted. Cardiac Exam: [Normal S1 and S2, no S3 gallop, no murmur.] Abdomen: [Soft, nontender, no megaly, no rebound, no guarding, normal bowel sounds.] Extremities: [No clubbing, no edema, no cyanosis.] Neurological Exam: Opens eyes, follows instructions/simple instructions like squeezing hands. Speech is noted to be slurred today Psychiatric: Blunted affect, depressed mood, poor mental status and judgment at this point. Skin: No rashes. Lymphatics: No lymphadenopathy. - Labs CBC & Chem 7: 03/11/20 04:41 03/11/20 04:41 Labs: Abnormal Lab Results - Last 24 Hours (Table) 03/11/20 03/11/20 Range/Units 04:41 04:41 WBC 21.4 H (3.8-10.6) k/uL Neutrophils # 19.3 H (1.3-7.7) k/uL BUN 6 L (7-17) mg/dL Alkaline Phosphatase 135 H (38-126) U/L Total Protein 6.2 L (6.3-8.2) g/dL Assessment and Plan Assessment: Impression: Flexeril overdose. Intentional suicidal attempt History of major depressive disorder. History of chronic pain syndrome History of chronic interstitial cystitis History of generalized anxiety disorder. Hypovolemia on presentation mostly secondary to Flexeril overdose and possibly some component of hypovolemia. Responded well to fluids only. Bibasilar pneumonia, left more so than right, felt to be aspiration pneumonia unless proven otherwise. Recommendation: Add Zosyn empirically for aspiration pneumonia Continue to monitor the patient in the ICU. Continue O2 at 2 L nasal cannula. Continue suicidal precautions. Psychiatric consultation was initiated and done yesterday. We'll continue to follow. Time with Patient: Less than 30
[2020-03-11] MEDS: NOREPINEPHRINE 32 MG in SODIUM CHLORIDE 0.9% 218 ML IV SCH (15:29)
[2020-03-12] MEDS: POTASSIUM CHLORIDE 10 MEQ in WATER FOR INJECTION 1 100ML.BAG IVPB SCH ×2 (02:08→02:59)
[2020-03-12] MEDS: SODIUM CHLORIDE 0.9% 1,000 ML IV SCH ×3 (02:10→21:10)
[2020-03-12 06:15] LABS: Basophils % (A) 0 %; Eosinophils % (A) 0 %; HCT 38.7 % (34.0-46.0); HGB 12.7 gm/dL (11.4-16.0); Lymphocytes # (A) 0.9 k/uL (1.0-4.8); Lymphocytes % (A) 6 %; MCH 31.9 pg (25.0-35.0); MCHC 32.7 g/dL (31.0-37.0); MCV 97.4 fL (80.0-100.0); Mean Platelet Volume 8.5; Monocytes # (A) 0.8 k/uL (0-1.0); Monocytes % (A) 6 %; Neutrophils # (A) 12.6 k/uL (1.3-7.7); Neutrophils % (A) 87 %; Platelet Count 211 k/uL (150-450); RBC 3.97 m/uL (3.80-5.40); RDW 12.5 % (11.5-15.5); WBC 14.4 k/uL (3.8-10.6)
[2020-03-12 06:30] LABS: ALT 25 U/L (4-34); AST 20 U/L (14-36); African American GFR (CKD) >90 (>60 ml/min/1.73 sqM); Albumin 3.6 g/dL (3.5-5.0); Alkaline Phosphatase 130 U/L (38-126); Anion Gap 13 mmol/L; Blood Urea Nitrogen 7 mg/dL (7-17); Calcium 8.3 mg/dL (8.4-10.2); Carbon Dioxide 21 mmol/L (22-30); Chloride 104 mmol/L (98-107); Glucose 76 mg/dL (74-99); Non-African American GFR(CKD) >90 (>60 ml/min/1.73 sqM); Potassium 3.9 mmol/L (3.5-5.1); Sodium 138 mmol/L (137-145); Total Bilirubin 1.2 mg/dL (0.2-1.3); Total Protein 6.3 g/dL (6.3-8.2)
--- NOTE | 2020-03-12 07:25 | XR ---
EXAMINATION TYPE: XR chest 1V portable DATE OF EXAM: 03/12/2020 HISTORY: possible pna. REFERENCE: Previous study dated 03/11/2020. FINDINGS: There continues to be left basilar airspace disease. Optimistic leak, this may have improve d slightly. The right lung is clear. The left CP angle is blunted. I could not exclude a small effusi on. Heart size upper limits of normal. Right subclavian catheter remains in place, unchanged in appearance. IMPRESSION: SOME IMPROVEMENT IN THE AERATION AT THE LEFT LUNG BASE.
[2020-03-12] MEDS: PIPERACILLIN-TAZOBACTAM 3.375 GM in SODIUM CHLORIDE 0.9% 100 ML IVPB SCH ×3 (09:11→23:50)
[2020-03-12] MEDS: ENOXAPARIN 40 MG/0.4 ML SYRINGE SQ SCH (09:12)
[2020-03-12] MEDS: PANTOPRAZOLE 40 MG/10 ML VIAL IV SCH (09:12)
--- NOTE | 2020-03-12 14:05 | P.PN ---
Subjective Progress Note Date: 03/12/20 Principal diagnosis: Intentional drug overdose This is a 54-year-old female with history of hypertension, chronic urinary bladder issues, chronic pain syndrome, patient decided on her own to intentionally take significant amount of Flexeril 10 mg tablets, attempting to commit suicide. This was done mostly because she couldn't take the pain anymore. No known history of depression or suicidal ideations. Patient is known to have history of interstitial cystitis, anxiety, and previous history of suicidal ideations. This is noted on her previous evaluation back in September of 2019. Known history of benzodiazepine abuse. And history of withdrawal from benzodiazepines. At any rate patient is not a great historian, patient was evaluated in the ER, she was hypotensive at one point, his fluid boluses were given, initially admitted to the intensive care unit after a central line was placed by the ER physician, and the patient remained hemodynamically stable overnight. Patient is nonverbal, and seems to be sedated, but arousable, and follows simple instructions. Mostly squeezing hands and wiggling toes. She does not seem to be in any respiratory distress during my evaluation. Chest x- ray is basically unremarkable. Right subclavian central line seems to be in the proper position. Patient is hemodynamically stable, blood pressure is 104/71, she is on O2 liters via nasal cannula and O2 saturation is 97%, and she has a sinus rhythm/sinus tachycardia rate of 107. Again not much information could be obtained from the patient herself. Reevaluated today on 03/11/20, patient remains in the ICU, on 2 L nasal cannula, sedated, not agitated at all. Patient is calm, she is tachycardic, rate is 110- 120. Chest x-ray showed a left lower lobe infiltrate which is new hence his Zosyn was added. Patient has slurred speech, and does not seem to be quite coherent. But clearly she is not in any form of respiratory distress labs today showed leukocytosis with WBC count of 21.4, otherwise her labs are basically unremarkable. Again her chest x-ray showed a new left lower lobe infiltrate, and that would likely explain her leukocytosis. The patient is seen today 03/12/2020 in follow-up on the selective care unit. She is currently resting comfortably in bed. She is awake. Sitter is at the bedside. She still remains somewhat altered. Her speech is incoherent. Responding slowly. She is in no respiratory distress. Maintaining O2 saturation in the mid 90s on room air. She is slightly tachycardic. Temperature 99.2 axillary. White count 14.4. Hemoglobin 12.7. Sodium 138. Potassium 3.9. Bicarb 21. Creatinine 0.54. D-dimer 3.21. She remains on Lovenox. Antibiotics in the form of Zosyn. Chest x-ray reveals improved aeration in the left lung base. Objective - Vital Signs Vital signs: Vital Signs Temp 99.2 F 03/12/20 08:00 Pulse 121 H 03/12/20 08:00 Resp 24 03/12/20 08:00 BP 134/82 03/12/20 08:00 Pulse Ox 94 L 03/12/20 08:00 Intake & Output 03/11/20 03/12/20 03/12/20 18:59 06:59 18:59 Intake Total 2460 1630 Output Total 2825 3375 Balance -365 1743 Intake: IV 1430 1430 Sodium Chloride 0.9% 1, 1430 1430 000 ml @ 130 mls/hr IV . Q7H42M [facility] Rx#:[id number] Intake, IV Titration 1030 200 Amount Piperacillin-Tazobactam 3 100 .375 gm In Sodium Chloride 0.9% 100 ml @ 25 mls/hr IVPB Q8HR [facility] Rx# :[id number] Potassium Chloride 10 meq 100 In Water For Injection 1 100ml.bag @ 100 mls/hr IVPB Q1H [facility] Rx#: [id number] Potassium Chloride 10 meq 200 200 In Water For Injection 1 100ml.bag @ 100 mls/hr IVPB Q1H [facility] Rx#: [id number] Sodium Chloride 0.9% 1, 130 000 ml @ 130 mls/hr IV . Q7H42M [facility] Rx#:[id number] Sodium Chloride 0.9% 500 500 ml 500 ml @ 999 mls/hr IV .Q31M [facility] Rx#:[id number] Output: Urine 2825 3375 Other: Voiding Method Indwelling Catheter Indwelling Catheter Indwelling Catheter - Exam GENERAL EXAM: Alert, comfortable 54-year-old female patient, on room air, still some confusion and garbled speech, comfortable in no apparent distress. HEAD: Normocephalic. EYES: Normal reaction of pupils, equal size. NOSE: Clear with pink turbinates. THROAT: No erythema or exudates. NECK: No masses, no JVD. CHEST: No chest wall deformity. LUNGS: Equal air entry with basilar crackles left greater than right CVS: S1 and S2 normal with no audible murmur, regular rhythm. ABDOMEN: No hepatosplenomegaly, normal bowel sounds, no guarding or rigidity. SPINE: No scoliosis or deformity SKIN: No rashes CENTRAL NERVOUS SYSTEM: No focal deficits, tone is normal in all 4 extremities. EXTREMITIES: There is no peripheral edema. No clubbing, no cyanosis. Peripheral pulses are intact. - Labs CBC & Chem 7: 03/12/20 04:51 03/12/20 04:51 Labs: Abnormal Lab Results - Last 24 Hours (Table) 03/12/20 03/12/20 03/12/20 Range/Units 04:51 04:51 11:58 WBC 14.4 H (3.8-10.6) k/uL Neutrophils # 12.6 H (1.3-7.7) k/uL Lymphocytes # 0.9 L (1.0-4.8) k/uL D-Dimer 3.21 H (<0.60) mg/L FEU Carbon Dioxide 21 L (22-30) mmol/L Calcium 8.3 L (8.4-10.2) mg/dL Alkaline Phosphatase 130 H (38-126) U/L Assessment and Plan Assessment: Flexeril overdose. Intentional suicidal attempt History of major depressive disorder. History of chronic pain syndrome History of chronic interstitial cystitis History of generalized anxiety disorder. Hypovolemia on presentation mostly secondary to Flexeril overdose and possibly some component of hypovolemia. Responded well to fluids only. Bibasilar pneumonia, left more so than right, felt to be aspiration pneumonia unless proven otherwise. Plan: The patient was seen and evaluated by Dr. Rockwell Chest x-ray and labs reviewed. Improved aeration on the left lung base Continued on Zosyn Psychiatry is on the case We will continue to follow I, the cosigning physician, performed a history & physical examination of the patient. Lungs sounds with basilar crackles left greater than right. Maintaining good O2 saturations in the 90s on room air. I discussed the asses sment and plan of care with my nurse practitioner, Linda Iniguez. I attest to the above note as dictated by her.
--- NOTE | 2020-03-12 15:13 | P.PN ---
Subjective 54-year-old female admitted for suicidal ideation intentional overdose. Patient is medically stable but still confused quite a bit and this is probably secondary to her psychosis. Patient has a sitter. Patient is tachycardic because of which I am obtaining TSH and d-dimer of d-dimer is elevated I will obtain a CAT scan to rule out PE and if these 2 are within normal lives patient will be started on metoprolol patient doesn't appear to be septic no evidence of sepsis at this time. Review of systems: Unable to obtain due to her clinical condition All inpatient medications were reviewed and appropriate changes in these medications as dictated in the interval history and assessment and plan. Objective - Vital Signs Vital signs: Vital Signs Temp 99.2 F 03/12/20 08:00 Pulse 119 H 03/12/20 12:00 Resp 24 03/12/20 12:00 BP 143/74 03/12/20 12:00 Pulse Ox 92 L 03/12/20 12:00 Intake & Output 03/11/20 03/12/20 03/12/20 18:59 06:59 18:59 Intake Total 2460 1630 900 Output Total 2825 3375 Balance -365 -1745 900 Intake: IV 1430 1430 Sodium Chloride 0.9% 1, 1430 1430 000 ml @ 75 mls/hr IV . [id number] [facility] Rx#:[id number] Intake, IV Titration 1030 200 900 Amount Piperacillin-Tazobactam 3 100 100 .375 gm In Sodium Chloride 0.9% 100 ml @ 25 mls/hr IVPB Q8HR [facility] Rx# :[id number] Potassium Chloride 10 meq 100 In Water For Injection 1 100ml.bag @ 100 mls/hr IVPB Q1H [facility] Rx#: [id number] Potassium Chloride 10 meq 200 200 In Water For Injection 1 100ml.bag @ 100 mls/hr IVPB Q1H [facility] Rx#: [id number] Sodium Chloride 0.9% 1, 130 800 000 ml @ 75 mls/hr IV . [id number] [facility] Rx#:[id number] Sodium Chloride 0.9% 500 500 ml 500 ml @ 999 mls/hr IV .Q31M [facility] Rx#:[id number] Output: Urine 2825 3375 Other: Voiding Method Indwelling Catheter Indwelling Catheter Indwelling Catheter - Exam PHYSICAL EXAMINATION: GENERAL: Patient has dry mucous membranes dry oral cavity unable to assess orientation alert. HEENT: Pupils are round and equally reacting to light. EOMI. No scleral icterus. No conjunctival pallor. Normocephalic, atraumatic. No pharyngeal erythema. No thyromegaly. CARDIOVASCULAR: S1 and S2 present. No murmurs, rubs, or gallops. PULMONARY: Chest is clear to auscultation, no wheezing or crackles. ABDOMEN: Soft, nontender, nondistended, normoactive bowel sounds. No palpable organomegaly. MUSCULOSKELETAL: No joint swelling or deformity. EXTREMITIES: No cyanosis, clubbing, or pedal edema. NEUROLOGICAL: Gross neurological examination did not reveal any focal deficits. SKIN: No rashes. - Labs CBC & Chem 7: 03/12/20 04:51 03/12/20 04:51 Labs: Abnormal Lab Results - Last 24 Hours (Table) 03/12/20 03/12/20 03/12/20 Range/Units 04:51 04:51 11:58 WBC 14.4 H (3.8-10.6) k/uL Neutrophils # 12.6 H (1.3-7.7) k/uL Lymphocytes # 0.9 L (1.0-4.8) k/uL D-Dimer 3.21 H (<0.60) mg/L FEU Carbon Dioxide 21 L (22-30) mmol/L Calcium 8.3 L (8.4-10.2) mg/dL Alkaline Phosphatase 130 H (38-126) U/L Assessment and Plan Plan: -Flexeril overdose probably contributing to her tachycardia. Patient is still bit confused most probably secondary to psychosis patient had toxic encephalopathy as well from Flexeril overdose -Suicide attempt -Major depression -Sinus tachycardia no evidence of sepsis although patient is on Zosyn for possible aspiration pneumonia, x-ray showed some bibasilar infiltrates patient is continued on IV fluids because of dehydration and hypovolemia TSH is within normal limits and the d-dimer is elevated will obtain a CT angios the chest rule out pulmonary embolism although possibility is low. -Chronic pain -Dehydration will continue with IV fluids
--- NOTE | 2020-03-12 18:01 | CT ---
EXAMINATION TYPE: CT angio chest DATE OF EXAM: 03/12/2020 COMPARISON: HISTORY: Elevated d-dimer. CT DLP: 336.7 mGycm Automated exposure control for dose reduction was used. CONTRAST: Performed with IV Contrast, patient injected with 100 mL of Isovue 370. There are 3-D post processed images. There is some airspace infiltrate and atelectasis left lower lobe. Heart is top normal in size. There is no pericardial effusion. There is small right pleural effusion. There is pleural thickening left posterior lung base. There are no hilar masses. There is no mediastinal adenopathy. Thoracic aorta is intact without evide nce of aneurysm or dissection. I see no filling defects in the pulmonary arteries. The bony thorax is intact. There is no compressio n fracture. The ribs appear intact. IMPRESSION: No evidence of pulmonary embolism. Left lower lobe pneumonia and atelectasis. Right basilar small ple ural effusion and atelectasis.
[2020-03-13] MEDS: SODIUM CHLORIDE 0.9% 1,000 ML IV SCH ×2 (06:06→20:05)
[2020-03-13] MEDS: PANTOPRAZOLE 40 MG/10 ML VIAL IV SCH (08:22)
[2020-03-13] MEDS: PIPERACILLIN-TAZOBACTAM 3.375 GM in SODIUM CHLORIDE 0.9% 100 ML IVPB SCH ×3 (08:23→22:55)
[2020-03-13] MEDS: ENOXAPARIN 40 MG/0.4 ML SYRINGE SQ SCH (08:23)
[2020-03-13 11:31] VITALS: BMI 22.1
--- NOTE | 2020-03-13 12:01 | P.PN ---
Subjective Progress Note Date: 03/13/20 Principal diagnosis: Intentional drug overdose This is a 54-year-old female with history of hypertension, chronic urinary bladder issues, chronic pain syndrome, patient decided on her own to intentionally take significant amount of Flexeril 10 mg tablets, attempting to commit suicide. This was done mostly because she couldn't take the pain anymore. No known history of depression or suicidal ideations. Patient is known to have history of interstitial cystitis, anxiety, and previous history of suicidal ideations. This is noted on her previous evaluation back in September of 2019. Known history of benzodiazepine abuse. And history of withdrawal from benzodiazepines. At any rate patient is not a great historian, patient was evaluated in the ER, she was hypotensive at one point, his fluid boluses were given, initially admitted to the intensive care unit after a central line was placed by the ER physician, and the patient remained hemodynamically stable overnight. Patient is nonverbal, and seems to be sedated, but arousable, and follows simple instructions. Mostly squeezing hands and wiggling toes. She does not seem to be in any respiratory distress during my evaluation. Chest x- ray is basically unremarkable. Right subclavian central line seems to be in the proper position. Patient is hemodynamically stable, blood pressure is 104/71, she is on O2 liters via nasal cannula and O2 saturation is 97%, and she has a sinus rhythm/sinus tachycardia rate of 107. Again not much information could be obtained from the patient herself. Reevaluated today on 03/11/20, patient remains in the ICU, on 2 L nasal cannula, sedated, not agitated at all. Patient is calm, she is tachycardic, rate is 110- 120. Chest x-ray showed a left lower lobe infiltrate which is new hence his Zosyn was added. Patient has slurred speech, and does not seem to be quite coherent. But clearly she is not in any form of respiratory distress labs today showed leukocytosis with WBC count of 21.4, otherwise her labs are basically unremarkable. Again her chest x-ray showed a new left lower lobe infiltrate, and that would likely explain her leukocytosis. The patient is seen today 03/12/2020 in follow-up on the selective care unit. She is currently resting comfortably in bed. She is awake. Sitter is at the bedside. She still remains somewhat altered. Her speech is incoherent. Responding slowly. She is in no respiratory distress. Maintaining O2 saturation in the mid 90s on room air. She is slightly tachycardic. Temperature 99.2 axillary. White count 14.4. Hemoglobin 12.7. Sodium 138. Potassium 3.9. Bicarb 21. Creatinine 0.54. D-dimer 3.21. She remains on Lovenox. Antibiotics in the form of Zosyn. Chest x-ray reveals improved aeration in the left lung base. The patient is seen today 03/13/2020 in follow-up on the selective care unit. She is currently laying in bed. She is awake. Speech remains garbled. She appears more oriented today. Sitter remains at the bedside. No new labs today. She remains on Zosyn. Lovenox for DVT prophylaxis. Protonix for GI prophylaxis. CT angiogram performed yesterday. No evidence of pulmonary embolism. Left lower lobe pneumonia and atelectasis with right basilar small effusions and atelectasis. Objective - Vital Signs Vital signs: Vital Signs Temp 97.9 F 03/13/20 08:00 Pulse 120 H 03/13/20 08:00 Resp 24 03/13/20 11:37 BP 137/87 03/13/20 08:00 Pulse Ox 92 L 03/13/20 08:00 Intake & Output 03/12/20 03/13/20 03/13/20 18:59 06:59 18:59 Intake Total 900 0 Output Total 1000 750 Balance 900 -1000 -750 Weight 66 kg 66 kg Intake: Intake, IV Titration 900 Amount Piperacillin-Tazobactam 3 100 .375 gm In Sodium Chloride 0.9% 100 ml @ 25 mls/hr IVPB Q8HR [facility] Rx# :[id number] Sodium Chloride 0.9% 1, 800 000 ml @ 75 mls/hr IV . [id number] [facility] Rx#:[id number] Oral 0 Output: Urine 1000 750 Uretheral (Petersen) 500 Other: Voiding Method Indwelling Catheter Indwelling Catheter Indwelling Catheter - Exam GENERAL EXAM: Alert, comfortable 54-year-old female patient, on room air, still some confusion and garbled speech, comfortable in no apparent distress. HEAD: Normocephalic. EYES: Normal reaction of pupils, equal size. NOSE: Clear with pink turbinates. THROAT: No erythema or exudates. NECK: No masses, no JVD. CHEST: No chest wall deformity. LUNGS: Equal air entry with basilar crackles left greater than right CVS: S1 and S2 normal with no audible murmur, regular rhythm. ABDOMEN: No hepatosplenomegaly, normal bowel sounds, no guarding or rigidity. SPINE: No scoliosis or deformity SKIN: No rashes CENTRAL NERVOUS SYSTEM: No focal deficits, tone is normal in all 4 extremities. EXTREMITIES: There is no peripheral edema. No clubbing, no cyanosis. Periph eral pulses are intact. - Labs CBC & Chem 7: 03/12/20 04:51 03/12/20 04:51 Labs: Abnormal Lab Results - Last 24 Hours (Table) 03/12/20 Range/Units 11:58 D-Dimer 3.21 H (<0.60) mg/L FEU Assessment and Plan Assessment: Flexeril overdose. Intentional suicidal attempt History of major depressive disorder. History of chronic pain syndrome History of chronic interstitial cystitis History of generalized anxiety disorder. Hypovolemia on presentation mostly secondary to Flexeril overdose and possibly some component of hypovolemia. Responded well to fluids only. Bibasilar pneumonia, left more so than right, felt to be aspiration pneumonia unless proven otherwise. Plan: The patient was seen and evaluated by Dr. Rockwell CT angiogram reviewed Continued on [facility] Psychiatry is on the case We will continue to follow I, the cosigning physician, performed a history & physical examination of the patient. Lungs sounds with basilar crackles left greater than right. Maintaining good O2 saturations in the 90s on room air. I discussed the assessment and plan of care with my nurse practitioner, Linda Iniguez. I attest to the above note as dictated by her.
--- NOTE | 2020-03-13 12:30 | P.PN ---
Subjective 54-year-old female admitted for suicidal ideation intentional overdose. Patient is medically stable but still confused quite a bit and this is probably secondary to her psychosis. Patient has a sitter. Patient is tachycardic because of which I am obtaining TSH and d-dimer of d-dimer is elevated I will obtain a CAT scan to rule out PE and if these 2 are within normal lives patient will be started on metoprolol patient doesn't appear to be septic no evidence of sepsis at this time. 03/13/2020 Patient looks much better today CT angios the chest did not show any PE patient will be started on metoprolol. TSH within normal limits. Patient does have bilateral infiltrates consistent with aspiration pneumonia for which patient is alert and Zosyn. She is alert oriented 3 today patient has some redness and probable phlebitis of the right the antecubital fossa area for which patient will need ice pack Constitutional: Denied any fatigue denied any fever. Cardio vascular: denied any chest pain, palpitations Gastrointestinal denied any nausea vomiting Pulmonary: Denied any shortness of breath cough Neurologic denied any new focal deficits All inpatient medications were reviewed and appropriate changes in these medications as dictated in the interval history and assessment and plan. Objective - Vital Signs Vital signs: Vital Signs Temp 98 F 03/13/20 11:57 Pulse 129 H 03/13/20 11:57 Resp 20 03/13/20 11:57 BP 135/88 03/13/20 11:57 Pulse Ox 93 L 03/13/20 11:57 Intake & Output 03/12/20 03/13/20 03/13/20 18:59 06:59 18:59 Intake Total 900 0 Output Total 1000 750 Balance 900 -1000 -750 Weight 66 kg 66 kg Intake: Intake, IV Titration 900 Amount Piperacillin-Tazobactam 3 100 .375 gm In Sodium Chloride 0.9% 100 ml @ 25 mls/hr IVPB Q8HR [facility] Rx# :[id number] Sodium Chloride 0.9% 1, 800 000 ml @ 75 mls/hr IV . [id number] [facility] Rx#:[id number] Oral 0 Output: Urine 1000 750 Uretheral (Petersen) 500 Other: Voiding Method Indwelling Catheter Indwelling Catheter Indwelling Catheter - Exam PHYSICAL EXAMINATION: GENERAL: Patient is alert oriented 3 not in distress looking much better compar ed to yesterday HEENT: Pupils are round and equally reacting to light. EOMI. No scleral icterus. No conjunctival pallor. Normocephalic, atraumatic. No pharyngeal erythema. No thyromegaly. CARDIOVASCULAR: S1 and S2 present. No murmurs, rubs, or gallops. PULMONARY: Chest is clear to auscultation, no wheezing or crackles. ABDOMEN: Soft, nontender, nondistended, normoactive bowel sounds. No palpable organomegaly. MUSCULOSKELETAL: No joint swelling or deformity. EXTREMITIES: No cyanosis, clubbing, or pedal edema. NEUROLOGICAL: Gross neurological examination did not reveal any focal deficits. SKIN: No rashes. - Labs CBC & Chem 7: 03/12/20 04:51 03/12/20 04:51 Labs: Abnormal Lab Results - Last 24 Hours (Table) 03/12/20 Range/Units 11:58 D-Dimer 3.21 H (<0.60) mg/L FEU Assessment and Plan Plan: -Flexeril overdose probably contributing to her tachycardia. This is admitted for Flexeril low-dose patient is much less confused alert oriented 3 possibly can be discharged tomorrow -Suicide attempt -Major depression -Sinus tachycardia no evidence of sepsis although patient is on Zosyn for possible aspiration pneumonia, rule out pulmonary embolism TSH within normal limits patient was started on metoprolol -Thrombophlebitis of the right antecubital fossa, icepack -Chronic pain -Dehydration will continue with IV fluids
[2020-03-13] MEDS: METOPROLOL TARTRATE 25 MG TAB PO SCH ×2 (17:24→20:03)
[2020-03-14 06:40] LABS: ALT 17 U/L (4-34); AST 17 U/L (14-36); African American GFR (CKD) >90 (>60 ml/min/1.73 sqM); Albumin 3.1 g/dL (3.5-5.0); Alkaline Phosphatase 120 U/L (38-126); Anion Gap 10 mmol/L; Blood Urea Nitrogen 13 mg/dL (7-17); Calcium 8.8 mg/dL (8.4-10.2); Carbon Dioxide 20 mmol/L (22-30); Chloride 109 mmol/L (98-107); Glucose 105 mg/dL (74-99); Non-African American GFR(CKD) >90 (>60 ml/min/1.73 sqM); Potassium 3.6 mmol/L (3.5-5.1); Sodium 139 mmol/L (137-145); Total Bilirubin 0.8 mg/dL (0.2-1.3)
--- NOTE | 2020-03-14 08:42 | XR ---
EXAMINATION TYPE: XR chest 1V portable DATE OF EXAM: 03/14/2020 COMPARISON: 03/12/2020 HISTORY: Cough, aspiration pneumonia. TECHNIQUE: Single frontal view of the chest is obtained. FINDINGS: Left basilar airspace disease appears unchanged from the prior obscuring the retrocardiac airspace and left hemidiaphragm border. Right-sided central venous catheter has been removed. Cardiom ediastinal silhouette is stable. No acute osseous pathology. IMPRESSION: Similar left basilar pneumonia in comparison to 03/12/2020.
[2020-03-14] MEDS: PANTOPRAZOLE 40 MG/10 ML VIAL IV SCH (09:56)
[2020-03-14] MEDS: ENOXAPARIN 40 MG/0.4 ML SYRINGE SQ SCH (09:56)
[2020-03-14] MEDS: PIPERACILLIN-TAZOBACTAM 3.375 GM in SODIUM CHLORIDE 0.9% 100 ML IVPB SCH (09:56)
[2020-03-14] MEDS: METOPROLOL TARTRATE 25 MG TAB PO SCH ×2 (09:56→20:48)
[2020-03-14] MEDS: SODIUM CHLORIDE 0.9% 1,000 ML IV SCH ×2 (09:57→21:50)
--- NOTE | 2020-03-14 11:38 | P.PN ---
Subjective Progress Note Date: 03/14/20 Principal diagnosis: Altered mental status, Flexeril overdose, aspiration pneumonia This is a 54-year-old female with history of hypertension, chronic urinary bladder issues, chronic pain syndrome, patient decided on her own to intentionally take significant amount of Flexeril 10 mg tablets, attempting to commit suicide. This was done mostly because she couldn't take the pain anymore. No known history of depression or suicidal ideations. Patient is known to have history of interstitial cystitis, anxiety, and previous history of suicidal ideations. This is noted on her previous evaluation back in September of 2019. Known history of benzodiazepine abuse. And history of withdrawal from benzodiazepines. At any rate patient is not a great historian, patient was evaluated in the ER, she was hypotensive at one point, his fluid boluses were given, initially admitted to the intensive care unit after a central line was placed by the ER physician, and the patient remained hemodynamically stable overnight. Patient is nonverbal, and seems to be sedated, but arousable, and follows simple instructions. Mostly squeezing hands and wiggling toes. She does not seem to be in any respiratory distress during my evaluation. Chest x- ray is basically unremarkable. Right subclavian central line seems to be in the proper position. Patient is hemodynamically stable, blood pressure is 104/71, she is on O2 liters via nasal cannula and O2 saturation is 97%, and she has a si nus rhythm/sinus tachycardia rate of 107. Again not much information could be obtained from the patient herself. Reevaluated today on 03/11/20, patient remains in the ICU, on 2 L nasal cannula, sedated, not agitated at all. Patient is calm, she is tachycardic, rate is 110- 120. Chest x-ray showed a left lower lobe infiltrate which is new hence his Zosyn was added. Patient has slurred speech, and does not seem to be quite coherent. But clearly she is not in any form of respiratory distress labs today showed leukocytosis with WBC count of 21.4, otherwise her labs are basically unremarkable. Again her chest x-ray showed a new left lower lobe infiltrate, and that would likely explain her leukocytosis. The patient is seen today 03/12/2020 in follow-up on the selective care unit. She is currently resting comfortably in bed. She is awake. Sitter is at the bedside. She still remains somewhat altered. Her speech is incoherent. Responding slowly. She is in no respiratory distress. Maintaining O2 saturation in the mid 90s on room air. She is slightly tachycardic. Temperature 99.2 axillary. White count 14.4. Hemoglobin 12.7. Sodium 138. Potassium 3.9. Bicarb 21. Creatinine 0.54. D-dimer 3.21. She remains on Lovenox. Antibiotics in the form of Zosyn. Chest x-ray reveals improved aeration in the left lung base. The patient is seen today 03/13/2020 in follow-up on the selective care unit. She is currently laying in bed. She is awake. Speech remains garbled. She appears more oriented today. Sitter remains at the bedside. No new labs today. She remains on Zosyn. Lovenox for DVT prophylaxis. Protonix for GI prophylaxis. CT angiogram performed yesterday. No evidence of pulmonary embolism. Left lower lobe pneumonia and atelectasis with right basilar small effusions and atelectasis. On 03/14/2020 patient seen in follow-up on selective care unit, she is resting comfortably in bed, appears to be in no acute distress, she is awake and alert, following commands, room air pulse ox 93-94%, hemodynamically she is stable, no fever or chills. Today's chest x-ray shows left basilar airspace disease appears to be unchanged from the earlier chest x-ray on 03/12/2020, clinically patient is asymptomatic. Interval removal of the right-sided central venous catheter. CTA chest completed on 03/12/2020 showed no evidence of pulmonary embolism, left lower lobe pneumonia and atelectasis, and small effusion on the right with adjacent atelectasis. Patient has been stable, denies any shortness of breath, no cough or congestion, she remains on antibiotics for possibility of aspiration pneumonia in the form of Zosyn. No cultures, today's labs have been reviewed, no CBC was done, sodium was 139, potassium is 3.6, chloride is 109, CO2 is 20, bun of 13, creatinine 0.50. remote inpatient coder is at the bedside for intentional overdose Objective - Vital Signs Vital signs: Vital Signs Temp 97.7 F 03/14/20 04:00 Pulse 94 03/14/20 04:00 Resp 18 03/14/20 04:00 BP 119/76 03/14/20 04:00 Pulse Ox 93 L 03/14/20 04:00 Intake & Output 03/13/20 03/14/20 03/14/20 18:59 06:59 18:59 Intake Total 600 Output Total 750 300 Balance -750 300 Weight 66 kg 68 kg Intake: IV 600 Sodium Chloride 0.9% 1, 600 000 ml @ 75 mls/hr IV . [id number] [facility] Rx#:[id number] Output: Urine 750 300 Uretheral (Petersen) 500 Other: Voiding Method Indwelling Catheter Indwelling Catheter # Voids 0 - Exam GENERAL EXAM: Alert, very pleasant, 54-year-old white female, resting comfortably in bed, on room air, with a pulse ox of 93%, awake and alert, following commands, appears weak but no acute distress noted comfortable in no apparent distress. HEAD: Normocephalic/atraumatic. EYES: Normal reaction of pupils, equal size. Conjunctiva pink, sclera white. NOSE: Clear with pink turbinates. THROAT: No erythema or exudates. NECK: No masses, no JVD, no thyroid enlargement, no adenopathy. CHEST: No chest wall deformity. Symmetrical expansion. LUNGS: Equal air entry with no crackles, wheeze, rhonchi or dullness. CVS: Regular rate and rhythm, normal S1 and S2, no gallops, no murmurs, no rubs ABDOMEN: Soft, nontender. No hepatosplenomegaly, normal bowel sounds, no guarding or rigidity. EXTREMITIES: No clubbing, no edema, no cyanosis, 2+ pulses and upper and lower extremities. MUSCULOSKELETAL: Muscle strength and tone normal. SPINE: No scoliosis or deformity SKIN: No rashes CENTRAL NERVOUS SYSTEM: Alert and oriented -3. No focal deficits, tone is normal in all 4 extremities. PSYCHIATRIC: Alert and oriented -3. Appropriate affect. Intact judgment and insight. - Labs CBC & Chem 7: 03/12/20 04:51 03/14/20 05:41 Labs: Abnormal Lab Results - Last 24 Hours (Table) 03/14/20 Range/Units 05:41 Chloride 109 H (98-107) mmol/L Carbon Dioxide 20 L (22-30) mmol/L Creatinine 0.50 L (0.52-1.04) mg/dL Glucose 105 H (74-99) mg/dL Total Protein 6.0 L (6.3-8.2) g/dL Albumin 3.1 L (3.5-5.0) g/dL Assessment and Plan Plan: Assessment: #1. Flexeril overdose. #2. Intentional suicidal attempt #3. History of major depressive disorder. #4. History of chronic pain syndrome #5. History of chronic interstitial cystitis #6. History of generalized anxiety disorder. #7. Hypovolemia on presentation mostly secondary to Flexeril overdose and possibly some component of hypovolemia. Responded well to fluids only. #8. Bibasilar pneumonia, left more so than right, felt to be aspiration pneumonia unless proven otherwise. Plan: Continue current coverage for antibiotics, increase activity as tolerated, could probably be switched to oral Augmentin, today's chest x-ray has been reviewed showing no significant change in the appearance of left basilar pneumonia, and small right-sided pleural effusion, clinically stable, no fever or chills. His labs have been reviewed. I performed a history & physical examination of the patient and discussed their management with my nurse practitioner, Winter Canales. I reviewed the nurse adelaida evans's note and agree with the documented findings and plan of care. Lung sounds are positive for diminished breath sounds. The findings and the impression was discussed with the patient. I attest to the documentation by the nurse practitioner. Time with Patient: Less than 30
--- NOTE | 2020-03-14 15:29 | P.CON ---
Consult Note - . Consult date: 03/14/20 Assessment/Plan:: Clinical Problems: Suicide attempt by overdose of Flexeril, major depressive disorder severe with anxious distress, generalized anxiety disorder, benzodiazepine use disorder Interim history: I reviewed the medical record and interviewed the patient. She is a 54-year-old female admitted to medicine following an intentional overdose of Flexeril. She was sitting up in the recliner finishing her lunch. The one-to-one was in attendance. She described continued feelings of depression and thoughts of suicide. She feels hopeless, helpless and worthless. She alleged that she felt depressed after she left and October 2019 and depression and anxiety symptoms worsened. When I reminded her of the family meeting where her reported that she is much improved with she alleged that she was "acting". She stated that she had planned to overdose and is disappointed that she was not successful. She does not want to continue living in her current state of distress. In addition to depression she complains of severe and persistent anxiety. She feels persistently anxious and fearful and explained that she does not want to continue living with this level of distress. She did not follow through with the recommended outpatient treatment. She did not keep her initial appointment with the individual therapist at [facility] on 10/21/2019. She alleged that they could not afford the co- pay. Mental status exam: She presented as a casually groomed 54-year-old female who was sitting comfortably in the recliner. She made eye contact and appeared to attend to interview. She had a distressed facial expression and cried throughout the interview. She had marked psychomotor retardation and no abnormal movements. Her speech was spontaneous and slightly dysarthric. Her affect was intense, depressed and unreactive. She described continued suicidal ideation or wishes. She expresses feelings of hopelessness, helplessness and worthlessness. She did not express clear ideas reference, paranoid ideation or delusions. Her thinking was concrete. Associations were coherent and goal directed. She denied hallucinations and did not appear to be responding to internal stimuli. Assessment: She is a 54-year-old woman who has a history of a depressive and having anxiety disorder. She presented to the [facility] following an intentional overdose of Flexeril. Following her discharge from the inpatient psychiatric unit she did not follow through with outpatient treatment. She described a recurrence of depression and anxiety that were severe and un controllable leading to the suicide attempt. She continues to express suicidal ideation and wishes. Plan: Continue with the one-to-one due to high risk for suicide. Transfer to psychiatric unit when medically stable. Psychiatry will follow. Thank you for this consult.
--- NOTE | 2020-03-14 15:44 | P.PN ---
Subjective Progress Note Date: 03/14/20 Niki Powers is a 54 yo F with PMH of chronic pain, interstitial cystitis, major depression, history of suicide attempt who presented to the ED after an intentional overdose at home. Apparently, the pt took around 170 flexeril 10 mg tablets in an attempt to take her life and because she couldn't handle the pain. Upon arrival she was hypotensive and tachycardic with HR in 150s and BP 90/50s. She did respond to IV fluid hydration and was placed on nasal cannula. EKG, CT head and CXR unremarkable. UDS negative. Pt was admitted to the ICU and monitored overnight. This am, she is rousable but nonverbal, able to follow simple commands. 03/11/20 more arousable this morning, droggy, makes eye contact, follows simple commands, not talking, expressive aphasia. Chest x-ray reporting new left basilar airspace disease, possible pneumonia. Afebrile, elevated WBC 21.4. Mildly Elevated alk phos. evaluated by psychiatry with recommendations noted and appreciated. 03/14/2020 CTA chest completed on 03/12/2020 showed no evidence of pulmonary embolism, left lower lobe pneumonia and atelectasis, and small effusion on the right with adjacent atelectasis. Chest x-ray today reporting left basilar airspace disease unchanged from prior .Vital signs stable, maintaining O2 sats in the 90s on room air. Maintained on IV fluids at 75 MLS per hour, Zosyn. Suicide precautions intact with environmental health and safety leader at bedside. Patient states"everything they give me makes me feel worse. I can't handle it anymore". Denies any chest pain, palpitations or shortness of breath. Denies cough. Objective - Vital Signs Vital signs: Vital Signs Temp 98.3 F 03/14/20 08:00 Pulse 114 H 03/14/20 08:00 Resp 18 03/14/20 04:00 BP 123/78 03/14/20 08:00 Pulse Ox 91 L 03/14/20 08:00 Intake & Output 03/13/20 03/14/20 03/14/20 18:59 06:59 18:59 Intake Total 600 240 Output Total 750 300 200 Balance -750 300 40 Weight 66 kg 68 kg Intake: IV 600 Sodium Chloride 0.9% 1, 600 000 ml @ 75 mls/hr IV . [id number] [facility] Rx#:[id number] Oral 240 Output: Urine 750 300 200 Uretheral (Petersen) 500 Other: Voiding Method Indwelling Catheter Indwelling Catheter Indwelling Catheter # Voids 0 - Exam General: Alert and oriented 3, no acute distress, teary-eyed Eyes: PERRL, EOMI, conjunctiva normal. HENT: normocephalic, mucus membranes moist Neck: supple, no JVD Lungs: normal respiratory effort, essentially clear, no wheezes or rales CV: Regular rate and rhythm, no murmur. Peripheral pulses 2+ Abdomen: soft, nondistended, no organomegaly Lymph: no cervical or axillary LAD Skin: warm and dry. Neuro: Cranial nerves II through XII grossly intact, no focal deficits - Labs CBC & Chem 7: 03/12/20 04:51 03/14/20 05:41 Labs: Abnormal Lab Results - Last 24 Hours (Table) 03/14/20 Range/Units 05:41 Chloride 109 H (98-107) mmol/L Carbon Dioxide 20 L (22-30) mmol/L Creatinine 0.50 L (0.52-1.04) mg/dL Glucose 105 H (74-99) mg/dL Total Protein 6.0 L (6.3-8.2) g/dL Albumin 3.1 L (3.5-5.0) g/dL Assessment and Plan Assessment: (1) Toxic encephalopathy, secondary to overdose of Flexeril. Current Visit: Yes Status: Acute Code(s): G92 - TOXIC ENCEPHALOPATHY SNOMED Code(s): 52821407 (2) Suicide attempt Current Visit: Yes Status: Acute Code(s): T14.91XA - SUICIDE ATTEMPT, INITIAL ENCOUNTER SNOMED Code(s): 33249693 (3) Hypotension, resolved with IV fluid hydration Current Visit: Yes Status: Acute Code(s): I95.9 - HYPOTENSION, UNSPECIFIED SNOMED Code(s): 73578761 (4) tachycardia secondary to overdose of Flexeril (5) history of benzodiazepine abuse (6) major depressive disorder (7) possible left basilar pneumonia, aspiration (8) leukocytosis secondary to the above ( 9) bibasilar pneumonia, left greater than right, suspect aspiration pneumonia Plan: Continue on current medication regime ,monitoring and symptomatic treatment. Suicide precautions. Antibiotics changed to oral. DC Petersen catheter. Increase ambulation as tolerated. Discharge planning in progress to mental health unit, tomorrow. The impression and plan of care has been dictated as directed. : I performed a history and examination of this patient, discussed the same with the dictator. I agree with the dictator's note ,documented as a scribe. Any additional findings or plans will be noted.
[2020-03-14] MEDS: LORazepam 1 MG TAB PO PRN (16:55)
[2020-03-14] MEDS: AMOXIC-POT CLAV 875-125MG 1 EACH TAB PO SCH (20:48)
[2020-03-15 06:12] LABS: Basophils % (A) 0 %; Eosinophils # (A) 0.3 k/uL (0-0.7); Eosinophils % (A) 4 %; HCT 40.7 % (34.0-46.0); HGB 13.2 gm/dL (11.4-16.0); Lymphocytes # (A) 1.3 k/uL (1.0-4.8); Lymphocytes % (A) 18 %; MCH 31.2 pg (25.0-35.0); MCHC 32.4 g/dL (31.0-37.0); MCV 96.6 fL (80.0-100.0); Mean Platelet Volume 7.9; Monocytes # (A) 0.6 k/uL (0-1.0); Monocytes % (A) 8 %; Neutrophils % (A) 68 %; Platelet Count 261 k/uL (150-450); RBC 4.21 m/uL (3.80-5.40); RDW 12.6 % (11.5-15.5); WBC 7.4 k/uL (3.8-10.6)
[2020-03-15 06:17] LABS: African American GFR (CKD) >90 (>60 ml/min/1.73 sqM); Anion Gap 5 mmol/L; Blood Urea Nitrogen 13 mg/dL (7-17); Calcium 8.6 mg/dL (8.4-10.2); Carbon Dioxide 26 mmol/L (22-30); Chloride 107 mmol/L (98-107); Glucose 109 mg/dL (74-99); Non-African American GFR(CKD) >90 (>60 ml/min/1.73 sqM); Potassium 3.5 mmol/L (3.5-5.1); Sodium 138 mmol/L (137-145)
[2020-03-15] MEDS: METOPROLOL TARTRATE 25 MG TAB PO SCH ×2 (08:53→20:31)
[2020-03-15] MEDS: ENOXAPARIN 40 MG/0.4 ML SYRINGE SQ SCH (08:53)
[2020-03-15] MEDS: LORazepam 1 MG TAB PO PRN ×2 (08:53→17:54)
[2020-03-15] MEDS: AMOXIC-POT CLAV 875-125MG 1 EACH TAB PO SCH ×2 (08:53→20:31)
[2020-03-15] MEDS: PANTOPRAZOLE 40 MG/10 ML VIAL IV SCH (08:53)
[2020-03-15] MEDS ORDERED: Potassium Replacement Protocol 1 EACH MISC MISCELLANE PRN (09:42)
--- NOTE | 2020-03-15 09:51 | P.DS ---
Providers Date of admission: 03/09/20 15:13 Expected date of discharge: 03/15/20 Attending physician: Yinka Mesa MD Consults: 03/09/20 15:13 Consult Physician Stat Consulting Provider: Matthew Rockwell Consult Reason/Comments: Intensive care management Do you want consulting provider notified?: Already Contacted 03/10/20 10:29 Consult Physician Urgent Consulting Provider: Foster Hale Consult Reason/Comments: suicide attempt Do you want consulting provider notified?: Already Contacted Primary care physician: Michela Reardon [facility] Course: Final Diagnoses: (1) Toxic encephalopathy, secondary to intentional overdose of Flexeril, improved Current Visit: Yes Status: Acute Code(s): G92 - TOXIC ENCEPHALOPATHY SNOMED Code(s): 53943423 (2) Suicide attempt Current Visit: Yes Status: Acute Code(s): T14.91XA - SUICIDE ATTEMPT, INITIAL ENCOUNTER SNOMED Code(s): 88715902 (3) Hypotension, resolved with IV fluid hydration Current Visit: Yes Status: Acute Code(s): I95.9 - HYPOTENSION, UNSPECIFIED SNOMED Code(s): 28529106 (4) tachycardia secondary to overdose of Flexeril, improved. BBlocker added to med regime. Will continue X 2 weeks, re-evaluate. (5) history of benzodiazepine abuse (6) major depressive disorder (7) bibasilar pneumonia, left greater than right, suspect aspiration pneumonia Hospital COurse: Niki Powers is a 54 yo F with PMH of chronic pain, interstitial cystitis, major depression, history of suicide attempt who presented to the ED after an intentional overdose at home. Apparently, the pt took around 170 flexeril 10 mg tablets in an attempt to take her life and because she couldn't handle the pain. Upon arrival she was hypotensive and tachycardic with HR in 150s and BP 90/50s. She did respond to IV fluid hydration and was placed on nasal cannula. EKG, CT head and CXR unremarkable. UDS negative. Pt was admitted to the ICU and monitored overnight. This am, she is rousable but nonverbal, able to follow simple commands. 03/11/20 more arousable this morning, droggy, makes eye contact, follows simple commands, not talking, expressive aphasia. Chest x-ray reporting new left basilar airspace disease, possible pneumonia. Afebrile, elevated WBC 21.4. Mildly Elevated alk phos. evaluated by psychiatry with recommendations noted and appreciated. 03/14/2020 CTA chest completed on 03/12/2020 showed no evidence of pulmonary embolism, left lower lobe pneumonia and atelectasis, and small effusion on the right with adjacent atelectasis. Chest x-ray today reporting left basilar airspace disease unchanged from prior .Vital signs stable, maintaining O2 sats in the 90s on room air. Maintained on IV fluids at 75 MLS per hour, Zosyn. Suicide precautions intact with loss prevention/safety district manager at bedside. Patient states"everything they give me makes me feel worse. I can't handle it anymore". Denies any chest pain, palpitations or shortness of breath. Denies cough. Significant clinical improvement. Denies CP,SOB, Chills, Cough.Sitting up in chair,reading newspaper. Feels better this am. Complains of constipation, colace added to med regime.Does Not want to go to [facility]. Petitoned.Patient is medically cleared for dc to [facility]. The impression and plan of care has been dictated as directed. : I performed a history and examination of this patient, discussed the same with the dictator. I agree with the dictator's note ,documented as a scribe. Any additional findings or plans will be noted. Patient Condition at Discharge: Stable Plan - Discharge Summary New Discharge Prescriptions: New LORazepam [Ativan] 1 mg PO TID PRN tab PRN Reason: Anxiety Amoxic-Pot Clav 875-125Mg [Augmentin 875-125] 1 each PO Q12HR #10 tab Docusate [Colace] 100 mg PO BID cap Metoprolol Tartrate [Lopressor] 25 mg PO BID tab Pantoprazole Sodium [Protonix] 40 mg PO DAILY #30 tablet.dr Discontinued Lisinopril [Zestril] 5 mg PO DAILY 30 Days #30 tab Discharge Medication List Amoxic-Pot Clav 875-125Mg [Augmentin 875-125] 1 each PO Q12HR #10 tab 03/15/20 [Rx] Docusate [Colace] 100 mg PO BID cap 03/15/20 [Rx] LORazepam [Ativan] 1 mg PO TID PRN tab 03/15/20 [Rx] Metoprolol Tartrate [Lopressor] 25 mg PO BID tab 03/15/20 [Rx] Pantoprazole Sodium [Protonix] 40 mg PO DAILY #30 tablet. 03/15/20 [Rx] Follow up Appointment(s)/Referral(s): Foster Hale MD [STAFF PHYSICIAN] - 1-2 Days Michela Reardon DO [Primary Care Provider] - 3 Days (after dc from [facility]) Activity/Diet/Wound Care/Special Instructions: Dc to [facility] Discharge Disposition: TRANSFER TO PSYCH HOSP/UNIT
--- NOTE | 2020-03-15 11:50 | P.PN ---
Subjective Progress Note Date: 03/15/20 Principal diagnosis: Altered mental status, Flexeril overdose, aspiration pneumonia This is a 54-year-old female with history of hypertension, chronic urinary bladder issues, chronic pain syndrome, patient decided on her own to intentionally take significant amount of Flexeril 10 mg tablets, attempting to commit suicide. This was done mostly because she couldn't take the pain anymore. No known history of depression or suicidal ideations. Patient is known to have history of interstitial cystitis, anxiety, and previous history of suicidal ideations. This is noted on her previous evaluation back in September of 2019. Known history of benzodiazepine abuse. And history of withdrawal from benzodiazepines. At any rate patient is not a great historian, patient was evaluated in the ER, she was hypotensive at one point, his fluid boluses were given, initially admitted to the intensive care unit after a central line was placed by the ER physician, and the patient remained hemodynamically stable overnight. Patient is nonverbal, and seems to be sedated, but arousable, and follows simple instructions. Mostly squeezing hands and wiggling toes. She does not seem to be in any respiratory distress during my evaluation. Chest x- ray is basically unremarkable. Right subclavian central line seems to be in the proper position. Patient is hemodynamically stable, blood pressure is 104/71, she is on O2 liters via nasal cannula and O2 saturation is 97%, and she has a si nus rhythm/sinus tachycardia rate of 107. Again not much information could be obtained from the patient herself. Reevaluated today on 03/11/20, patient remains in the ICU, on 2 L nasal cannula, sedated, not agitated at all. Patient is calm, she is tachycardic, rate is 110- 120. Chest x-ray showed a left lower lobe infiltrate which is new hence his Zosyn was added. Patient has slurred speech, and does not seem to be quite coherent. But clearly she is not in any form of respiratory distress labs today showed leukocytosis with WBC count of 21.4, otherwise her labs are basically unremarkable. Again her chest x-ray showed a new left lower lobe infiltrate, and that would likely explain her leukocytosis. The patient is seen today 03/12/2020 in follow-up on the selective care unit. She is currently resting comfortably in bed. She is awake. Sitter is at the bedside. She still remains somewhat altered. Her speech is incoherent. Responding slowly. She is in no respiratory distress. Maintaining O2 saturation in the mid 90s on room air. She is slightly tachycardic. Temperature 99.2 axillary. White count 14.4. Hemoglobin 12.7. Sodium 138. Potassium 3.9. Bicarb 21. Creatinine 0.54. D-dimer 3.21. She remains on Lovenox. Antibiotics in the form of Zosyn. Chest x-ray reveals improved aeration in the left lung base. The patient is seen today 03/13/2020 in follow-up on the selective care unit. She is currently laying in bed. She is awake. Speech remains garbled. She appears more oriented today. Sitter remains at the bedside. No new labs today. She remains on Zosyn. Lovenox for DVT prophylaxis. Protonix for GI prophylaxis. CT angiogram performed yesterday. No evidence of pulmonary embolism. Left lower lobe pneumonia and atelectasis with right basilar small effusions and atelectasis. On 03/14/2020 patient seen in follow-up on selective care unit, she is resting comfortably in bed, appears to be in no acute distress, she is awake and alert, following commands, room air pulse ox 93-94%, hemodynamically she is stable, no fever or chills. Today's chest x-ray shows left basilar airspace disease appears to be unchanged from the earlier chest x-ray on 03/12/2020, clinically patient is asymptomatic. Interval removal of the right-sided central venous catheter. CTA chest completed on 03/12/2020 showed no evidence of pulmonary embolism, left lower lobe pneumonia and atelectasis, and small effusion on the right with adjacent atelectasis. Patient has been stable, denies any shortness of breath, no cough or congestion, she remains on antibiotics for possibility of aspiration pneumonia in the form of Zosyn. No cultures, today's labs have been reviewed, no CBC was done, sodium was 139, potassium is 3.6, chloride is 109, CO2 is 20, bun of 13, creatinine 0.50. museum curator is at the bedside for intentional overdose On 03/15/2020 patient seen in follow-up on selective care unit. She is awake and alert, she sits up in the recliner, looking and feeling much better today, she is on room air with pulse ox of 91-95%, denies any shortness of breath, she is afebrile, hemodynamically she stable. She is on Zosyn for empiric antibiotic coverage, today's labs have been reviewed showing improvement of her leukocytosis, with blood cell count 7.4, hemoglobin is 13.2, electrolytes and renal profile are unremarkable, her mentation is appropriate, she is answering questions appropriately, no acute events overnight, no new chest x-rays, she is tolerating oral intake, no nausea vomiting no diarrhea, she's been evaluated by psychiatric services and inpatient treatment was recommended for suicidal behavior. She has product safety lead at the bedside Objective - Vital Signs Vital signs: Vital Signs Temp 97.9 F 03/15/20 04:00 Pulse 101 H 03/15/20 04:00 Resp 16 03/15/20 04:00 BP 117/75 03/15/20 04:00 Pulse Ox 91 L 03/15/20 04:00 Intake & Output 03/14/20 03/15/20 03/15/20 18:59 06:59 18:59 Intake Total 240 990 120 Output Total 400 625 Balance -160 365 120 Weight 66 kg Intake: IV 450 Sodium Chloride 0.9% 1, 450 000 ml @ 75 mls/hr IV . [id number] [facility] Rx#:[id number] Oral 240 540 120 Output: Urine 400 625 Other: Voiding Method Indwelling Catheter Indwelling Catheter # Voids 0 1 - Exam GENERAL EXAM: Alert, very pleasant, 54-year-old white female, sitting up in the recliner on room air, with a pulse ox of 91-95%, awake and alert, following com mands, no acute distress noted comfortable in no apparent distress. HEAD: Normocephalic/atraumatic. EYES: Normal reaction of pupils, equal size. Conjunctiva pink, sclera white. NOSE: Clear with pink turbinates. THROAT: No erythema or exudates. NECK: No masses, no JVD, no thyroid enlargement, no adenopathy. CHEST: No chest wall deformity. Symmetrical expansion. LUNGS: Equal air entry with no crackles, wheeze, rhonchi or dullness. CVS: Regular rate and rhythm, normal S1 and S2, no gallops, no murmurs, no rubs ABDOMEN: Soft, nontender. No hepatosplenomegaly, normal bowel sounds, no guarding or rigidity. EXTREMITIES: No clubbing, no edema, no cyanosis, 2+ pulses and upper and lower extremities. MUSCULOSKELETAL: Muscle strength and tone normal. SPINE: No scoliosis or deformity SKIN: No rashes CENTRAL NERVOUS SYSTEM: Alert and oriented -3. No focal deficits, tone is normal in all 4 extremities. PSYCHIATRIC: Alert and oriented -3. Appropriate affect. Intact judgment and insight. - Labs CBC & Chem 7: 03/15/20 05:23 03/15/20 05:23 Labs: Abnormal Lab Results - Last 24 Hours (Table) 03/15/20 Range/Units 05:23 Creatinine 0.50 L (0.52-1.04) mg/dL Glucose 109 H (74-99) mg/dL Assessment and Plan Plan: Assessment: #1. Flexeril overdose, recovered #2. Intentional suicidal attempt #3. History of major depressive disorder. #4. History of chronic pain syndrome #5. History of chronic interstitial cystitis #6. History of generalized anxiety disorder. #7. Hypovolemia on presentation mostly secondary to Flexeril overdose and possibly some component of hypovolemia. Responded well to fluids only. #8. Bibasilar pneumonia, left more so than right, felt to be aspiration pneumonia unless proven otherwise, covered with Zosyn for empiric antibiotic coverage Plan: Patient is doing well, clinically stable, appears to be stronger on today's exam, sitting up in the recliner, denies any pulmonary complaint, denies any cough or congestion, remains on Zosyn for empiric antibiotic coverage, she's had no fever or chills, breathing is comfortable, she can switch to oral Augmentin, she can be medically cleared for inpatient psychiatric treatment or pulmonary perspective I performed a history & physical examination of the patient and discussed their management with my nurse practitioner, Winter Canales. I reviewed the nurse practitioner's note and agree with the documented findings and plan of care. Lung sounds are positive for diminished breath sounds. The findings and the impression was discussed with the patient. I attest to the documentation by the nurse practitioner. Time with Patient: Less than 30
[2020-03-15] MEDS: DOCUSATE 100 MG CAP PO SCH ×2 (13:00→20:31)
[2020-03-15] MEDS: POTASSIUM CHLORIDE ER 20 MEQ TAB.ER PO SCH ×2 (13:01→14:00)
[2020-03-15] MEDS: SODIUM CHLORIDE 0.9% 1,000 ML IV SCH (13:02)
--- NOTE | 2020-03-15 15:43 | P.CON ---
Consult Note - . Consult date: 03/15/20 Assessment/Plan:: Clinical Problems: Suicide attempt by overdose of Flexeril, major depressive disorder severe with anxious distress, generalized anxiety disorder, benzodiazepine use disorder Interim history: Reviewed the medical record, interviewed the patient and spoke with her on the telephone. He confirmed that she has become progressively more distress since discharge from this unit. He also confirmed that she did not follow through with outpatient mental health treatment because a psychiatrist was out of service provider. He was unaware that we referred her to [facility]. Niki reported a marked decrease in anxiety and marked improvement of remote since she was taking Ativan. The nurse called me last night concerned about level of her distress and we started Ativan 1 mg by mouth 3 times a day. She perseverates about her need for Ativan again talked about her experiences with several different medications for the treatment of her irritable bladder condition. I explained that considering the severity of her suicide attempt by continue to recommend transfer to the psychiatric unit. Mental status exam: She presented as a casually groomed 51-year-old female who was sitting comfortably in a recliner. She made eye contact and attempted to interview. Her speech was spontaneous and fluent. Her affect was blunted but appropriate. She was not restless, intense or distressed. She melanie ed current suicidal ideation or wishes. Her thinking was concrete but organized and coherent. Assessment: She showed marked improvement in her overall clinical status with Ativan. She continues to need inpatient psychiatric treatment due to the severity of her suicide attempt. Plan: Continue with one-to-one supervision until she is transferred to the psychiatric unit.
[2020-03-16 01:36] VITALS: BP 106/69; PULSE 88; RESP 18; TEMP 97.6
== END 2020-03-16 02:00 | DRG 917 ==
LOC: EC 11:33 → 2SICU 15:13 → 3SCARD 03-12 05:15
PROVIDERS: ADMIT Family Medicine; ATTEND Family Medicine
PROC: 02HV33Z Insertion of Infusion Device into Superior Vena Cava, Percutaneous Approach (ICD-10-PCS; principal; 2020-03-09)
DX: T48.1X2A Poisoning by skeletal muscle relaxants [neuromuscular blocking agents], intentional self-harm, initial encounter (principal); G92 Toxic encephalopathy; J69.0 Pneumonitis due to inhalation of food and vomit; J98.11 Atelectasis; R47.01 Aphasia; Z11.59 Encounter for screening for other viral diseases; F13.10 Sedative, hypnotic or anxiolytic abuse, uncomplicated; F32.9 Major depressive disorder, single episode, unspecified; F41.1 Generalized anxiety disorder; G89.4 Chronic pain syndrome; I10 Essential (primary) hypertension; I80.9 Phlebitis and thrombophlebitis of unspecified site; K59.00 Constipation, unspecified; N30.10 Interstitial cystitis (chronic) without hematuria; Z79.899 Other long term (current) drug therapy; Z91.5 Personal history of self-harm; Z88.1 Allergy status to other antibiotic agents; Z88.5 Allergy status to narcotic agent; I95.9 Hypotension, unspecified; E86.0 Dehydration
CPT/HCPCS: 36415; 36556; 70450; 71045; 71275; 80048; 80053; 80306; 80320; 80329; 81003; 81025; 82550; 83520; 83605; 83690; 83735; 84132; 84443; 85025; 85379; 87635; 93005; 96360; 96361; 96365; 96374; 99291

== ENCOUNTER 2020-03-16 00:07 | Inpatient (IN) | payer BC ==
[2020-03-16] MEDS ORDERED: ACETAMINOPHEN TAB 325 MG TAB PO PRN (00:21)
[2020-03-16] MEDS ORDERED: MAG HYDROX/AL HYDROX/SIMETH 30 ML CUP PO PRN (00:21)
[2020-03-16] MEDS ORDERED: MAGNESIUM HYDROXIDE 2,400 MG/10 ML CUP PO PRN (00:21)
[2020-03-16] MEDS: AMOXIC-POT CLAV 875-125MG 1 EACH TAB PO SCH ×2 (08:55→22:15)
[2020-03-16] MEDS: PANTOPRAZOLE 40 MG TABLET PO SCH (08:55)
[2020-03-16] MEDS: DOCUSATE 100 MG CAP PO SCH ×2 (08:56→22:15)
[2020-03-16] MEDS: METOPROLOL TARTRATE 25 MG TAB PO SCH ×2 (08:56→22:15)
[2020-03-16] MEDS: LORazepam 1 MG TAB PO PRN ×2 (08:58→22:18)
[2020-03-16] MEDS: PARoxetine 10 MG TAB PO SCH (10:22)
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
[2020-03-17] MEDS: AMOXIC-POT CLAV 875-125MG 1 EACH TAB PO SCH ×2 (09:38→21:28)
[2020-03-17] MEDS: METOPROLOL TARTRATE 25 MG TAB PO SCH ×2 (09:38→21:29)
[2020-03-17] MEDS: DOCUSATE 100 MG CAP PO SCH ×2 (09:38→21:28)
[2020-03-17] MEDS: LORazepam 0.5 MG TAB PO SCH ×3 (09:38→21:28)
[2020-03-17] MEDS: PANTOPRAZOLE 40 MG TABLET PO SCH (09:38)
[2020-03-17] MEDS: PARoxetine 10 MG TAB PO SCH (09:38)
--- NOTE | 2020-03-17 13:59 | P.PN ---
Subjective Progress Note Date: 03/17/20 Principal diagnosis: Suicide attempt by drug overdose, major depressive disorder recurrent severe without psychotic features, poor compliance with outpatient mental health treatment, generalized anxiety disorder, rule out PTSD I reviewed the medical record, interviewed the patient and discuss her treatment and treatment plan during team meeting. She reported decreased anxiety since we resumed Ativan. I explained my concerns including her failure to follow through with recommended outpatient mental health treatment and her refusal to continue with the antidepressant we prescribed at her last discharge. She explained her actions. She complained that they could not afford outpatient treatment and the antidepressant was causing her side effects. However she did not call [facility] to discussed her fee structure or to negotiate a sliding scale or seek or obtain an appointment with a psychiatrist. Objective - Vital Signs Vital signs: Vital Signs Temp 98.6 F 03/17/20 06:56 Pulse 80 03/17/20 06:56 Resp 16 03/17/20 06:56 BP 116/78 03/17/20 06:56 Pulse Ox 95 03/16/20 01:07 - Exam She presented as a pale appearing 54-year-old female who was pleasant on approach. She made eye contact and attended to interview. She showed psychomotor slowing but no abnormal appearance. Her speech was spontaneous decrease in rate and rhythm. Her affect was blunted, anxious and depressed. She denied current suicidal ideation or wishes. She perseverated about her anxiety and her need for Ativan. She did not express such psychotic symptoms as ideas reference, paranoia or delusional thoughts. She is not experiencing auditory hallucinations. - Labs Labs: Abnormal Lab Results - Last 24 Hours (Table) 03/15/20 Range/Units 05:23 LDL Cholesterol, Calc 105 H (0-99) mg/dL HDL Cholesterol 24 L (40-60) mg/dL Assessment and Plan Assessment: Her anxiety has decreased from admission and she is denying current suicidal ideation, intent or plan. She remains preoccupied about benzodiazepines and I'm concerned that she will attempt suicide again if she is not prescribed a benzodiazepine. Plan: Continue inpatient hospitalization. Continue safety precautions. Continue Paxil 10 mg daily and titrated according to clinical response and tolerance. Begin Ativan 0.5 mg 3 times a day and continue Ativan 1 mg by mouth 3 times a day when necessary for anxiety. Continue discussion about her resistance towards outpatient mental health treatment. culture room worker to coordinate discharge and aftercare services. Encourage participation in therapeutic groups and activities. Evaluate clinical status response to treatment daily basis.
[2020-03-17 15:06] LABS: Hemoglobin A1C 5.4 % (4.0-6.0)
[2020-03-18] MEDS: PARoxetine 10 MG TAB PO SCH (09:20)
[2020-03-18] MEDS: AMOXIC-POT CLAV 875-125MG 1 EACH TAB PO SCH ×2 (09:20→21:25)
[2020-03-18] MEDS: PANTOPRAZOLE 40 MG TABLET PO SCH (09:20)
[2020-03-18] MEDS: DOCUSATE 100 MG CAP PO SCH ×2 (09:20→21:25)
[2020-03-18] MEDS: LORazepam 0.5 MG TAB PO SCH ×3 (09:20→21:25)
[2020-03-18] MEDS: METOPROLOL TARTRATE 25 MG TAB PO SCH ×3 (09:21→21:25)
--- NOTE | 2020-03-18 15:28 | P.PN ---
Subjective Progress Note Date: 03/18/20 Principal diagnosis: Suicide attempt by drug overdose, major depressive disorder recurrent severe without psychotic features, poor compliance with outpatient mental health treatment, generalized anxiety disorder, rule out PTSD I reviewed the medical record, interviewed the patient, spoke to her telephone and discuss her treatment and treatment plan during team meeting. She described a decrease in her anxiety since we started Ativan and Paxil. I noted that she has not requested when necessary Ativan since he started the regular dosing of Ativan (0.5 mg 3 times a day.). She remains resistant to increasing the Paxil alleging that she is "sensitive medication" and experiences increased anxiety with higher doses of Paxil. She denied current thoughts of or suicide. She again perseverated about her anxiety and her need to continue with her medication (Ativan) to control the anxiety. I again stressed the need for psychological treatment of her psychological problems. She continues to resist the suggestions complaining that her insurance would not cover the full cost of this service and she her cannot afford the cost of individual therapy. Her remains concerned about her condition was pressing for discharge. He feels guilty that he did not recognize her distress and bring her to the hospital before she attempted suicide. He assured me that he would be involved in her aftercare and her compliance with outpatient treatment recommendations. Objective - Vital Signs Vital signs: Vital Signs Temp 98.0 F 03/18/20 12:00 Pulse 138 H 03/18/20 09:25 Resp 17 03/18/20 06:50 BP 101/66 03/18/20 09:25 Pulse Ox 98 03/18/20 06:50 Intake & Output 03/17/20 03/18/20 03/18/20 18:59 06:59 18:59 Weight 65.516 kg - Exam She presented as a pale appearing 54-year-old female who was pleasant on approach. She made eye contact and attended to interview. She showed psychomotor slowing but no abnormal appearance. Her speech was spontaneous decrease in rate and rhythm. Her affect was blunted, anxious and depressed. She denied current suicidal ideation or wishes. She perseverated about her anxiety and her need for Ativan. She did not express such psychotic symptoms as ideas reference, paranoia or delusional thoughts. She is not experiencing auditory hallucinations. Assessment and Plan Assessment: Her anxiety has decreased from admission and she is denying current suicidal ideation, intent or plan. She reports a "slight" decrease his anxiety with the current dose of Ativan and Paxil. Plan: Continue inpatient hospitalization. Continue safety precautions. Continue Paxil 10 mg daily and titrated according to clinical response and tolerance. Continue Ativan 0.5 mg 3 times a day and Ativan 1 mg by mouth 3 times a day when necessary for anxiety. Continue discussion about her resistance towards outpatient mental health treatment. rotary shear worker helper to coordinate discharge and aftercare services. Encourage participation in therapeutic groups and activities. Evaluate clinical status response to treatment daily basis.
--- NOTE | 2020-03-18 22:44 | P.CONS ---
History of Present Illness - Reason for Consult Consult date: 03/17/20 medical eval - Chief Complaint suicide attempt - History of Present Illness Niki Powers is a 54 yo F with PMH of major depression, interstitial cystitis who presented to [facility] ED after she took 170 tablets of 10 mg flexeril. She was intially obtunded and hypotensive and admitted to the ICU. The pt subsequently developed aspiration pneumonia which was treated with zosyn and then augmentin. Her mental status improved and she described her suicide attempt as out of frustration that her PCP would not give her ativan, that her anxiety was unbearable. Pt was admitted to inpatient psych earlier in the year, but had not followed up with a psychiatrist outpatient due to insurance difficulty. Currently, she states her anxiety is much better and she attributes this to the ativan, she is worried that she won't be able to get it when she leaves the hospital. Review of Systems All systems: negative Constitutional: Denies chills, Denies fever Eyes: denies blurred vision, denies pain Ears, nose, mouth and throat: Denies headache, Denies sore throat Cardiovascular: Denies chest pain, Denies shortness of breath Respiratory: Denies cough Gastrointestinal: Denies abdominal pain, Denies diarrhea, Denies nausea, Denies vomiting Genitourinary: Denies dysuria, Denies hematuria Musculoskeletal: Denies myalgias Integumentary: Denies pruritus, Denies rash Neurological: Denies numbness, Denies weakness Psychiatric: Reports as per HPI, Reports anxiety, Reports depression Endocrine: Denies fatigue, Denies weight change Past Medical History Past Medical History: No Reported History Additional Past Medical History / Comment(s): diverticulitis, interstital cystitis History of Any Multi-Drug Resistant Organisms: None Reported Past Surgical History: Tonsillectomy Additional Past Surgical History / Comment(s): sinus surgery, vaginal cyst removed Past Anesthesia/Blood Transfusion Reactions: No Reported Reaction Past Psychological History: Anxiety Smoking Status: Never smoker Past Alcohol Use History: None Reported Past Drug Use History: None Reported Medications and Allergies Home Medications Medication Instructions Recorded Confirmed Type Amoxic-Pot Clav 875-125Mg 1 each PO Q12HR #10 tab 03/15/20 03/16/20 Rx [Augmentin 875-125] Docusate [Colace] 100 mg PO BID cap 03/15/20 03/16/20 Rx LORazepam [Ativan] 1 mg PO TID PRN tab 03/15/20 03/16/20 Rx Metoprolol Tartrate [Lopressor] 25 mg PO BID tab 03/15/20 03/16/20 Rx Pantoprazole Sodium [Protonix] 40 mg PO DAILY #30 tablet. 03/15/20 03/16/20 Rx Allergies Allergy/AdvReac Type Severity Reaction Status Date / Time tetracycline Allergy Anaphylaxis Verified 03/16/20 03:03 codeine AdvReac Confusion Verified 03/16/20 03:03 Physical Exam Vitals: Vital Signs Temp Pulse Pulse Resp BP BP Pulse Ox 03/18/20 17:30 98.4 F 03/18/20 12:00 98.0 F 03/18/20 09:25 138 H 101/66 03/18/20 06:50 97.8 F 84 17 106/55 98 03/17/20 22:40 98.1 F Intake and Output 03/18/20 03/18/20 03/18/20 06:59 14:59 22:59 Other: Weight 65.516 kg General: white female in no acute distress Eyes: PERRL, EOMI, conjunctiva normal HENT: normocephalic, mucus membranes moist Neck: supple, no JVD Lungs: normal respiratory effort, no wheezes or rales CV: Regular rate and rhythm, no murmur. Peripheral pulses 2+ Abdomen: soft, nondistended, no organomegaly Lymph: no cervical or axillary LAD Skin: warm and dry. Neuro: A&Ox3, anxious mood, normal affect Assessment and Plan (1) Tachycardia Current Visit: Yes Status: Acute Code(s): R00.0 - TACHYCARDIA, UNSPECIFIED SNOMED Code(s): 1334776 (2) Aspiration pneumonia Current Visit: Yes Status: Acute Code(s): J69.0 - PNEUMONITIS DUE TO INHALATION OF FOOD AND VOMIT SNOMED Code(s): 215541375 (3) Severe recurrent major depression Current Visit: Yes Status: Acute Code(s): F33.2 - MAJOR DEPRESSV DISORDER, RECURRENT SEVERE W/O PSYCH FEATURES SNOMED Code(s): 182120886671 (4) Suicide attempt Current Visit: No Status: Acute Code(s): T14.91XA - SUICIDE ATTEMPT, INITIAL ENCOUNTER SNOMED Code(s): 63089739 Plan: 1. Suicide attempt due to flexeril overdose. Severe major depression. Management per psychiatry. Agree with SSRI. Will need close outpatient follow up 2. Aspiration pneumonia. She will complete course of augmentin 3. Tachycardia. Possibly secondary to overdose. Metoprolol 25 mg bid. Continue to monitor
[2020-03-19] MEDS: PARoxetine 10 MG TAB PO SCH (08:34)
[2020-03-19] MEDS: METOPROLOL TARTRATE 25 MG TAB PO SCH ×3 (08:34→23:06)
[2020-03-19] MEDS: DOCUSATE 100 MG CAP PO SCH ×2 (08:34→22:22)
[2020-03-19] MEDS: AMOXIC-POT CLAV 875-125MG 1 EACH TAB PO SCH ×2 (08:34→22:22)
[2020-03-19] MEDS: LORazepam 0.5 MG TAB PO SCH ×3 (08:34→23:06)
[2020-03-19] MEDS: PANTOPRAZOLE 40 MG TABLET PO SCH (08:34)
[2020-03-19] MEDS ORDERED: PARoxetine 10 MG TAB PO STA (09:29)
--- NOTE | 2020-03-19 09:43 | P.PN ---
Progress Note - Text Progress Note Date: 03/19/20 Interval history: Patient was seen wandering the hallways and up at the nurse's desk and was di rectable and agreeable to speak with senior medical writer. Patient states that she had a difficult time sleeping last night as she claims that her anxiety has been worsening. Patient was requesting to have her medications increased and was okay with having the Paxil increased to 20 mg starting today. Floor Covering Printer Assistant spoke with patient about the side effects and benefits of treatment with Paxil. She states that she is going to groups and has a fair appetite. At this time patient denies any suicidal or homicidal ideations intent or plan. Denies any Auditory or visual hallucinations. Patient denies any side effects from the medications and has been compliant with meds. Mental status exam: General Appearance: Patient appears to be tall, thin, stated age is alert, directable, and cooperative. Behavior: No agitated behavior. Patient is calm and directable appears somewhat anxious. Speech: Patient's speech is fluent and nonpressured. Mood/Affect: Mood is improving mildly, affect is congruent and constricted. Suicidality/Homicidality: Patient denies having any suicidal or homicidal ideation intent or plan. Perceptions: Patient denies any auditory or visual hallucinations. Though content/process: There is no evidence of any delusional thought content and thought process is linear and goal-directed. Focused on her symptoms Memory and concentration: AOX3, grossly intact for the purposes of this session Judgment and insight: improving mildly Assessment/Plan: Continue with current diagnosis. Patient continues to meet criteria for inpatient psychiatric admission for symptom stabilization and s afety.Patient will be maintained on current psychotropic medication regimen, with the exception of increasing Paxil to 20 mg daily for mood/anxiety. Monitor for medication compliance and for any psychotropic medication side effects. Will continue to monitor ongoing response to treatment. Encouraged participation in milieu.
[2020-03-20] MEDS: AMOXIC-POT CLAV 875-125MG 1 EACH TAB PO SCH ×2 (08:45→21:31)
[2020-03-20] MEDS: DOCUSATE 100 MG CAP PO SCH ×2 (08:45→21:31)
[2020-03-20] MEDS: PARoxetine 20 MG TAB PO SCH (08:45)
[2020-03-20] MEDS: LORazepam 0.5 MG TAB PO SCH ×3 (08:45→22:01)
[2020-03-20] MEDS: METOPROLOL TARTRATE 25 MG TAB PO SCH ×2 (08:45→22:00)
[2020-03-20] MEDS: PANTOPRAZOLE 40 MG TABLET PO SCH (08:45)
--- NOTE | 2020-03-20 11:01 | P.PN ---
Progress Note - Text Progress Note Date: 03/20/20 Interval history: Patient was seen sitting in on group and speaking with another patient and was directable and agreeable to speak with financial underwriter. Patient states appears to be less anxious today and states that her anxiety has mildly improved since yesterday. Transportation Manager answered several questions about patient's medications and the plan going forward. Patient is agreeable to continue having her Paxil increased as needed. She states that her mood is "about the same". She did state that she feels some "pressure" in my neck and had been states that that occurred yesterday and has improved. She states that she is going to groups and has a fair appetite. At this time patient denies any suicidal or homicidal ideations intent or plan. Denies any Auditory or visual hallucinations. Patient denies any side effects from the medications and has been compliant with meds. Mental status exam: General Appearance: Patient appears to be tall, thin, stated age is alert, directable, and cooperative. Behavior: No agitated behavior. Patient is calm and directable appears somewhat anxious. Speech: Patient's speech is fluent and nonpressured. Mood/Affect: Mood is improving mildly, affect is congruent and constricted. Suicidality/Homicidality: Patient denies having any suicidal or homicidal id eation intent or plan. Perceptions: Patient denies any auditory or visual hallucinations. Though content/process: There is no evidence of any delusional thought content and thought process is linear and goal-directed. Focused on her symptoms, somatically preoccupied. Memory and concentration: AOX3, grossly intact for the purposes of this session Judgment and insight: improving mildly Assessment/Plan: Continue with current diagnosis. Patient continues to meet criteria for inpatient psychiatric admission for symptom stabilization and safety.Patient will be maintained on current psychotropic medication regimen. Monitor for medication compliance and for any psychotropic medication side effects. Will continue to monitor ongoing response to treatment. Encouraged participation in milieu.
[2020-03-21] MEDS: PANTOPRAZOLE 40 MG TABLET PO SCH (08:50)
[2020-03-21] MEDS: DOCUSATE 100 MG CAP PO SCH ×2 (08:53→20:32)
[2020-03-21] MEDS: AMOXIC-POT CLAV 875-125MG 1 EACH TAB PO SCH ×2 (08:53→20:32)
[2020-03-21] MEDS: LORazepam 0.5 MG TAB PO SCH ×3 (08:53→21:34)
[2020-03-21] MEDS: PARoxetine 20 MG TAB PO SCH (08:53)
[2020-03-21] MEDS: METOPROLOL TARTRATE 25 MG TAB PO SCH ×2 (08:53→23:03)
--- NOTE | 2020-03-21 13:58 | P.PN ---
Subjective Progress Note Date: 03/21/20 Principal diagnosis: Suicide attempt by drug overdose, major depressive disorder recurrent severe without psychotic features, poor compliance with outpatient mental health treatment, generalized anxiety disorder, rule out PTSD I reviewed the medical record, interviewed the patient and discuss her treatment and treatment plan during team meeting. She reports that she is less anxious but still rates her anxiety state "5" on a 10 point Likert scale. In response to my observation that she does not appear anxious she reports that anxiety is "internal". She explained this internal sense of anxiety as a fear that she will become severely anxious. We increased her Paxil to 20 mg yesterday; she reported no adverse effects with the increased dose. She has not requested a 1 mg by mouth dose of Ativan since we started 0.5 mg 3 times a day. We discussed discharge and aftercare. She is aware of her referral to [facility] for individual therapy because they offer services on a sliding scale. Objective - Vital Signs Vital signs: Vital Signs Temp 97.9 F 03/21/20 13:43 Pulse 100 03/21/20 08:54 Resp 16 03/21/20 06:55 BP 95/69 03/21/20 08:54 Pulse Ox 96 03/21/20 06:55 Intake & Output 03/20/20 03/21/20 03/21/20 18:59 06:59 18:59 Weight 66 kg - Exam She presented as a casually groomed 53-year-old female who was pleasant on approach. She made eye contact and attended the interview. She was calm, attentive and cooperative throughout the interview. Her affect was blunted but bright and reactive. Her speech was spontaneous with decreased volume and rhythm. She denied suicidal ideation, wishes or homicidal ideation. She expressed feelings of helplessness with regard to her "uncontrolled anxiety" but denied feeling hopeless or worthless. She ruminated about anxiety and anxiety symptoms. Her thinking was abstract and associations were coherent and logical. She denied hallucinations did not appear to be r esponding to internal stimuli. Assessment and Plan Assessment: She is improve from admission with decreased anxiety, decreased use of when necessary Ativan and compliant with it therapeutic dose of antidepressant. Plan: Plan for discharge on 03/22/2020. Continue safety precautions. Continue Ativan 0.5 mg 3 times a day and Paxil 20 mg daily. Lopressor 25 mg twice a day for hypertension. nursery worker to coordinate aftercare services. Encourage participation in therapeutic groups and activities. Evaluate clinical status r esponse to treatment daily basis.
[2020-03-22 07:01] VITALS: TEMP 97.5
[2020-03-22] MEDS: AMOXIC-POT CLAV 875-125MG 1 EACH TAB PO SCH (08:39)
[2020-03-22] MEDS: PARoxetine 20 MG TAB PO SCH (08:39)
[2020-03-22] MEDS: DOCUSATE 100 MG CAP PO SCH (08:39)
[2020-03-22] MEDS: PANTOPRAZOLE 40 MG TABLET PO SCH (08:40)
[2020-03-22] MEDS: LORazepam 0.5 MG TAB PO SCH ×2 (08:40→09:22)
[2020-03-22 08:44] VITALS: BP 104/76; PULSE 122; RESP 18
[2020-03-22] MEDS: METOPROLOL TARTRATE 25 MG TAB PO SCH (09:20)
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
== END 2020-03-22 12:26 | disposition home or self-care (01) | DRG 885 ==
LOC: 3MHU 00:07
PROVIDERS: ADMIT Psychiatry & Neurology Psychiatry; ATTEND Psychiatry & Neurology Psychiatry
DX: F33.2 Major depressive disorder, recurrent severe without psychotic features (principal); G92 Toxic encephalopathy; J69.0 Pneumonitis due to inhalation of food and vomit; T42.8X2A Poisoning by antiparkinsonism drugs and other central muscle-tone depressants, intentional self-harm, initial encounter; N30.10 Interstitial cystitis (chronic) without hematuria; I95.9 Hypotension, unspecified; F41.1 Generalized anxiety disorder; Z79.899 Other long term (current) drug therapy; Z91.5 Personal history of self-harm; Z87.19 Personal history of other diseases of the digestive system; Z98.890 Other specified postprocedural states; Z88.1 Allergy status to other antibiotic agents; Z88.5 Allergy status to narcotic agent
CPT/HCPCS: 80061; 83036; 84443

== ENCOUNTER → 2020-06-08 | Outpatient (CLI) | payer BC ==
[2020-06-08 14:35] LABS: HCT 44.6 % (34.0-46.0); HGB 14.2 gm/dL (11.4-16.0); MCH 30.7 pg (25.0-35.0); MCHC 31.9 g/dL (31.0-37.0); MCV 96.2 fL (80.0-100.0); Mean Platelet Volume 7.4; Platelet Count 243 k/uL (150-450); RBC 4.64 m/uL (3.80-5.40); RDW 13.2 % (11.5-15.5); WBC 8.2 k/uL (3.8-10.6)
[2020-06-08 19:58] LABS: African American GFR (CKD) 97.6 (60.0-200.0); Anion Gap 4.8 mmol/L (4.00-12.00); Calcium 9.6 mg/dL (8.7-10.3); Carbon Dioxide 28.2 mmol/L (21.6-31.8); Non-African American GFR(CKD) 84.2 (60.0-200.0); Potassium 4.4 mmol/L (3.5-5.5)
[2020-06-08 19:59] LABS: Albumin 4.3 g/dL (3.80-4.90); Albumin/Globulin Ratio 2.15 (1.60-3.17); Total Bilirubin 0.3 mg/dL (0.2-1.2); Total Protein 6.3 g/dL (6.2-8.2)
[2020-06-08 20:56] LABS: T4, Free (Free Thyroxine) 0.8 ng/dL (0.80-1.80)
== END | disposition home or self-care (01) ==
LOC: LABWHC1 13:45
PROVIDERS: ATTEND Internal Medicine
DX: R10.2 Pelvic and perineal pain (principal); R63.5 Abnormal weight gain; R60.9 Edema, unspecified
CPT/HCPCS: 36415; 80053; 84439; 84443; 85027

== ENCOUNTER → 2020-08-18 | Outpatient (CLI) | payer BC ==
[2020-08-18 12:02] LABS: Basophils % (A) 1 %; Eosinophils % (A) 1 %; HCT 47.1 % (34.0-46.0); Lymphocytes # (A) 1.4 k/uL (1.0-4.8); Lymphocytes % (A) 29 %; MCH 31.1 pg (25.0-35.0); MCHC 31.8 g/dL (31.0-37.0); MCV 97.7 fL (80.0-100.0); Mean Platelet Volume 7.3; Monocytes # (A) 0.2 k/uL (0-1.0); Monocytes % (A) 5 %; Neutrophils # (A) 2.9 k/uL (1.3-7.7); Neutrophils % (A) 62 %; Platelet Count 224 k/uL (150-450); RBC 4.82 m/uL (3.80-5.40); RDW 12.6 % (11.5-15.5); WBC 4.8 k/uL (3.8-10.6)
[2020-08-18 12:09] LABS: Appearance,Urine Clear (Clear); Bilirubin,Urine Negative (Negative); Blood,Urine Negative (Negative); Color,Urine Light Yellow; Glucose,Urine (UA) Negative (Negative); Ketones,Urine Negative (Negative); Leukocyte Esterase,Urine Negative (Negative); Nitrite,Urine Negative (Negative); Protein,Urine Negative (Negative); Specific Gravity,Urine 1.015 (1.001-1.035); Urobilinogen,Urine <2.0 mg/dL (<2.0)
[2020-08-18 12:22] LABS: African American GFR (CKD) >90 (>60 ml/min/1.73 sqM); Anion Gap 7 mmol/L; Blood Urea Nitrogen 19 mg/dL (7-17); Calcium 9.5 mg/dL (8.4-10.2); Carbon Dioxide 26 mmol/L (22-30); Chloride 107 mmol/L (98-107); Glucose 126 mg/dL (74-99); Non-African American GFR(CKD) >90 (>60 ml/min/1.73 sqM); Potassium 4.4 mmol/L (3.5-5.1); Sodium 140 mmol/L (137-145)
== END | disposition home or self-care (01) ==
LOC: LABPAT 10:41
PROVIDERS: ATTEND Obstetrics & Gynecology
DX: Z01.818 Encounter for other preprocedural examination (principal); N39.3 Stress incontinence (female) (male); R35.0 Frequency of micturition
CPT/HCPCS: 36415; 80048; 81003; 85025; 87086

== ENCOUNTER 2020-08-24 05:51 | Day surgery (SDC) | payer BC, SELFPAY ==
[2020-08-19 11:45] VITALS: BMI 27.3
--- NOTE | 2020-08-22 19:16 | P.GSHP ---
History of Present Illness H&P Date: 08/22/20 54 yo female with kandy and vaginal prolapse. She comes for a price, anterior repair[dr kirkland] and transobturator sling. She has had kandy for some time It was noted on history, p/e, and uds. THe alternatives, risks and complications including injury to adjacent organs, persistent incontinence, urine retention, chronic pain, infection of the graft have been explained understood and accepted. - Constitutional Constitutional: Denies chills, Denies fever - EENT Eyes: denies blurred vision, denies pain Ears, nose, mouth and throat: Denies headache, Denies sore throat - Cardiovascular Cardiovascular: Denies chest pain, Denies shortness of breath - Respiratory Respiratory: Denies cough, Denies 7 - Gastrointestinal Gastrointestinal: Denies abdominal pain, Denies diarrhea, Denies nausea, Denies vomiting - Genitourinary (Female) Genitourinary: Denies dysuria, Denies hematuria - Genitourinary (Male) Genitourinary: Denies dysuria, Denies hematuria - Musculoskeletal Musculoskeletal: Denies myalgias - Integumentary Integumentary: Denies pruritus, Denies rash - Neurological Neurological: Denies numbness, Denies weakness - Psychiatric Psychiatric: Denies anxiety, Denies depression - Endocrine Endocrine: Denies fatigue, Denies weight change Past Medical History Past Medical History: Hypertension Additional Past Medical History / Comment(s): diverticulitis, interstital cystitis, prolapsed rectum. hx heart murmur,kidney stones History of Any Multi-Drug Resistant Organisms: None Reported Past Surgical History: Tonsillectomy Additional Past Surgical History / Comment(s): sinus surgery, vaginal cyst removed, exp.lap for endometriosis Past Anesthesia/Blood Transfusion Reactions: No Reported Reaction Smoking Status: Never smoker - Past Family History Brother(s) Family Medical History: Cancer Additional Family Medical History / Comment(s): prostate cancer Medications and Allergies Home Medications Medication Instructions Recorded Confirmed Type LORazepam [Ativan] 0.5 mg PO TID #90 tab 03/22/20 08/19/20 Rx Ground Flax 1 dose PO DAILY 08/19/20 08/19/20 History Magnesium 200 mg PO DAILY 08/19/20 08/19/20 History Multivitamins, Thera [Multivitamin 1 tab PO DAILY 08/19/20 08/19/20 History (formulary)] [place]-3 Fatty Acids [[place]-3] 1,000 mg PO DAILY 08/19/20 08/19/20 History PARoxetine [Paxil] 10 mg PO DAILY 08/19/20 08/19/20 History Psyllium Husk (with Sugar) 1 dose PO DAILY 08/19/20 08/19/20 History [Metamucil Powder] lisinopriL [Zestril] 5 mg PO DIRECTED 08/19/20 08/19/20 History Allergies Allergy/AdvReac Type Severity Reaction Status Date / Time tetracycline Allergy Anaphylaxis Verified 08/19/20 11:28 codeine AdvReac Confusion Verified 08/19/20 11:28 Surgical - Exam - General well developed, well nourished, no distress - Eyes PERRL - ENT no hearing loss - Neck trachea midline - Respiratory normal expansion, normal respiratory effort - Cardiovascular Rhythm: regular - Abdomen Abdomen: soft, non tender - Genitourinary vaginal prolapse with a hypermobile urethra - Integumentary no rash, no growths - Neurologic normal coordination, normal sensation - Musculoskeletal normal gait, normal posture - Psychiatric oriented to time, oriented to person, oriented to place, speech is normal, memory intact Assessment and Plan Assessment: Impression: Vaginal prolapse, stress urinary incontinence Plan: PRICE,BSO, anterior repair[dr alvares], Transobturator tape
--- NOTE | 2020-08-23 20:03 | P.HPOB ---
History of Present Illness H&P Date: 08/23/20 Chief Complaint: pressure and des 55 year old presents for H BSO using da milagro, posterior repair and transobturator tape(Dr Oliveira). Review of Systems All systems: negative Constitutional: Denies chills, Denies fever Eyes: denies blurred vision, denies pain Ears, nose, mouth and throat: Denies headache, Denies sore throat Cardiovascular: Denies chest pain, Denies shortness of breath Respiratory: Denies cough Gastrointestinal: Denies abdominal pain, Denies diarrhea, Denies nausea, Denies vomiting Genitourinary: Denies dysuria, Denies hematuria Musculoskeletal: Denies myalgias Integumentary: Denies pruritus, Denies rash Neurological: Denies numbness, Denies weakness Psychiatric: Denies anxiety, Denies depression Endocrine: Denies fatigue, Denies weight change Past Medical History Past Medical History: Hypertension Additional Past Medical History / Comment(s): diverticulitis, interstital cystitis, rectocele. hx heart murmur,kidney stones History of Any Multi-Drug Resistant Organisms: None Reported Past Surgical History: Tonsillectomy Additional Past Surgical History / Comment(s): sinus surgery, vaginal cyst removed, exp.lap for endometriosis Past Anesthesia/Blood Transfusion Reactions: No Reported Reaction Smoking Status: Never smoker - Past Family History Brother(s) Family Medical History: Cancer Additional Family Medical History / Comment(s): prostate cancer Medications and Allergies Home Medications Medication Instructions Recorded Confirmed Type LORazepam [Ativan] 0.5 mg PO TID #90 tab 03/22/20 08/19/20 Rx Ground Flax 1 dose PO DAILY 08/19/20 08/19/20 History Magnesium 200 mg PO DAILY 08/19/20 08/19/20 History Multivitamins, Thera [Multivitamin 1 tab PO DAILY 08/19/20 08/19/20 History (formulary)] [place]-3 Fatty Acids [[place]-3] 1,000 mg PO DAILY 08/19/20 08/19/20 History PARoxetine [Paxil] 10 mg PO DAILY 08/19/20 08/19/20 History Psyllium Husk (with Sugar) 1 dose PO DAILY 08/19/20 08/19/20 History [Metamucil Powder] lisinopriL [Zestril] 5 mg PO DIRECTED 08/19/20 08/19/20 History Allergies Allergy/AdvReac Type Severity Reaction Status Date / Time tetracycline Allergy Anaphylaxis Verified 08/19/20 11:28 codeine AdvReac Confusion Verified 08/19/20 11:28 Exam Osteopathic Statement: *. No significant issues noted on an osteopathic structural exam other than those noted in the History and Physical/Consult. Heart: RRR Lungs: CTAB Abdomen: soft, nontender Extremeties: neg viki's Assessment and Plan Assessment: 1. rectocele 2. stress urinary incontinence 3. DES Plan: 1. [facility] BSO with da milagro, posterior repair and transobturator tape by Dr Oliveira
[~2020-08-24 05:51] MED LIST: DEXAMETHASONE SOD PHOSPHATE 10 MG/ML 1 ML VIAL IV ONE; LIDOCAINE 1% (10MG/ML) FOR IV START INTRADERMA PRN; MIDAZOLAM 2 MG/2 ML VIAL IV PRN; ONDANSETRON 4 MG/2 ML VIAL IVP ONE
[2020-08-24] MEDS: LACTATED RINGERS 1,000 ML IV SCH ×2 (06:45→20:26)
[2020-08-24] MEDS ORDERED: GLYCOPYRROLATE 0.2 MG/ML 2 ML VIAL ONE (07:23)
[2020-08-24] MEDS ORDERED: fentaNYL (PF) 50 MCG/ML 2 ML AMP ONE (07:23)
[2020-08-24] MEDS ORDERED: NEOSTIGMINE 1 MG/ML 10 ML VIAL ONE (07:23)
[2020-08-24] MEDS ORDERED: PROPOFOL 10 MG/ML 20 ML VIAL IV ONE (07:23)
[2020-08-24] MEDS ORDERED: MIDAZOLAM 2 MG/2 ML VIAL ONE (07:23)
[2020-08-24] MEDS ORDERED: ROCURONIUM 10 MG/ML (10 ML VIAL) IV ONE (07:23)
[2020-08-24] MEDS ORDERED: PHENYLEPHRINE-0.9% NACL SYG 1 MG/10 ML SYRINGE ONE (07:23)
[2020-08-24] MEDS ORDERED: LIDOCAINE 1% INJ 10MG/ML (20 ML MDV) ONE (07:23)
[2020-08-24] MEDS ORDERED: SUCCINYLCHOLINE CHLORIDE 100 MG/5 ML SYR IV ONE (07:23)
[2020-08-24] MEDS ORDERED: KETOROLAC 15 MG/ML 1 ML VIAL ONE (07:23)
[2020-08-24] MEDS ORDERED: HYDROmorphone (PF) 1 MG/ML ONE (07:23)
[2020-08-24] MEDS ORDERED: GENTAMICIN 80 MG in SODIUM CHLORIDE 0.9% 100 ML IRRIGATION ONE (08:00)
[2020-08-24] MEDS ORDERED: BUPIVACAINE (PF) 0.25% 30 ML VIAL SQ ONE (08:25)
[2020-08-24] MEDS ORDERED: BACITRACIN ZINC 500 UNIT/GM OINT 28.4 GM TUBE TOPICAL ONE (08:38)
[2020-08-24] MEDS ORDERED: VASOPRESSIN 20 UNIT/ML 1 ML VIAL SQ ONE (08:44)
[2020-08-24] MEDS ORDERED: LACTATED RINGERS 1,000 ML IV ONE (08:52)
--- NOTE | 2020-08-24 09:06 | P.OP ---
Date of Procedure: 08/24/20 Preoperative Diagnosis: Stress urinary incontinence Postoperative Diagnosis: Same Procedure(s) Performed: Trans-obturator tape Anesthesia: ZHANG Surgeon: Yo Oliveira Pathology: none sent Condition: stable Disposition: PACU Indications for Procedure: The patient is 55. She is to have a laparoscopic assisted vaginal hysterectomy and rectocele repair by Dr. Lebron today. She has stress urinary incontinence and I'll place a trans-obturator tape at the same operation. The risks complications alternatives have been discussed including infection bleeding pain incontinence retention injury to adjacent organs. Description of Procedure: The patient is brought to the operating suite. She is given a general anesthetic. Dr. Lebron proceeded with a laparoscopic assisted vaginal hysterectomy. I then entered the surgical suite. The anterior vaginal mucosa is been previously opened. I dissect lateral the bladder neck bilaterally with Metzenbaum scissors. I make 2 incisions in the inguinal crease at the level of the clitoris. I passed the graft introducers through the inguinal incisions into the obturator foramen around the issue pubic ramus into the vaginal space bilaterally. A irrigate the bladder to make sure there is no injury to the bladder and there is none. I passed the graft to the introducers and pull the graft back through the obturator foramen bilaterally. The graft lay in the mid urethra nicely. I removed the redundant sheathing and excess graft. Closed the vaginal mucosa with 0 Vicryl. The inguinal incisions are closed with 3-[address] Lebron returns the operating suite to do the posterior repair. Impression successful trans-obturator tape. A vaginal packing will be placed. The catheter be removed in the morning. Blood loss for my portion of the procedure is about 50 mL
[2020-08-24] MEDS: HYDROmorphone 0.5 MG/0.5 ML SYRINGE IVP PRN ×4 (09:25→09:50)
--- NOTE | 2020-08-24 09:38 | P.OP ---
Date of Procedure: 08/24/20 Preoperative Diagnosis: 1. rectocele 2. stress urinary incontinence Postoperative Diagnosis: 1. rectocele 2. stress urinary incontinence Procedure(s) Performed: Total laparoscopic hysterectomy bilateral salpingo-oophorectomy using da Orin, posterior repair and TOT placed by Dr. Oliveira Anesthesia: ZHANG Surgeon: Alondra Lebron Documentation Coordinator #1: Eugenio Bullock Estimated Blood Loss (ml): 10 IV fluids (ml): 950 Urine output (ml): 600 Pathology: other (Uterus, cervix, bilateral tubes and ovaries, vaginal mucosa) Condition: stable Disposition: PACU Operative Findings: Uterus sounded to 7 cm, cervix measured 2.5 cm. Normal uterus tubes and ovaries. Second-degree rectocele repaired. Description of Procedure: Patient taken the operating room where general anesthesia was obtained without difficulty. She is prepped and draped in normal sterile fashion dorsal lithotomy position, legs placed in the Jacob stirrups. Weighted speculum placed in the vagina and the anterior lip the cervix was grasped with single-tooth tenaculum. The uterus sounded to 7 cm and the cervix diameter was 2.5 cm. The appropriate manipulator tip and ring were placed on the Kassandra manipulator. The Kassandra manipulator was then placed in the uterus. Petersen catheter was also placed. Attention was then turned to the abdomen and gloves were changed. A 5 mm supraumbilical incision was made the scalpel and a 5 mm optical trocar was placed under direct visualization. 10 cm to the right of this and 2 cm down a 5 mm incision was made and 8 mm da Orin port was placed under direct visualization. Same measurements on the opposite side of the patient's abdomen, the 5 mm incision was made and 8 mm da Orin port was placed under direct visualization. In the left upper quadrant a 10 mm incision was made and a 10 mm optical trocar was placed under direct visualization. The 5 mm optical trocar was then replaced with the 8 mm da Orin camera port. The robot was docked on patient's right side. The camera was introduced and then the monopolar curved scissor and [place] bipolar placed under direct visualization. I broke scrub and went to the physician console. The left infundibulopelvic ligament was cauterized with the [place] bipolar and cut with monopolar curved scissors. The left round ligament was cauterized with the [place] bipolar and cut with monopolar curved scissors. The posterior leaf of the broad ligament was taken down using the monopolar curved scissors. Anterior leaf of the broad ligament was then taken down using the monopolar curved scissors. The uterine artery was cauterized with the [place] bipolar and cut with monopolar curved scissors. The bladder flap was then started using the monopolar curved scissors. Attention was then turned to the right side of the patient's anatomy and the right infundibular pelvic ligament was cauterized with the [place] bipolar and cut with monopolar curved scissors. The right round ligament was cauterized with the [place] bipolar and cut with monopolar curved scissors. Posterior leaf of the broad ligament was taken down using the monopolar curved scissors and the anterior leaf was taken down using the monopolar curved scissors. The uterine artery was cauterized the [place] bipolar cut with monopolar curved scissors. The bladder flap was then finished on this side. Anterior colpotomy was made using the monopolar curved scissors. The rest of the uterus was from the vaginal cuff by following the ring around with the monopolar curved scissors through the uterosacral ligaments back to the anterior portion. Once the uterus and cervix were amputated they were pulled through the vaginal cuff. Hemostasis was assured. The instruments were changed for the Cardier forcep and the dorothy suture cut. The vaginal cuff was then closed using O stratafix barbed suture in a running fashion. Hemostasis was again assured and the pelvis was irrigated. All instruments were removed from the abdomen and the robot was undocked. I scrubbed back in to the case. The abdominal incisions were closed with 4-0 Vicryl in a subcuticular fashion. The anterior vaginal mucosa was grasped with Allis clamps and infiltrated with diluted vasopressin. After created came in to the procedure I made a vertical incision on the anterior mucosa and then he took over. Please see his dictated report for further details about this part of the case. Denies tobacco return to obturator tape was placed. I closed the anterior vaginal mucosa with 0 Vicryl in a running locked fashion. The posterior vaginal mucosa was then grasped with Allis clamps and infiltrated with diluted vasopressin. A linear incision was made with the scalpel and extended using the Metzenbaums. The underlying fascia was dissected off the vaginal mucosa. Nuris plication stitches were then placed. The excess mucosa was trimmed and closed using 0 Vicryl in running locked fashion. Patient tolerated the procedure well, sponge and instrument co unts correct 2 and she was taken to recovery room in stable condition condition
[2020-08-24] MEDS ORDERED: ONDANSETRON 4 MG/2 ML VIAL IVP PRN (10:10)
[2020-08-24] MEDS ORDERED: ZOLPIDEM 5 MG TAB PO PRN (10:10)
[2020-08-24] MEDS ORDERED: HYDROcodone/APAP 5-325MG 1 EACH TAB PO PRN ×2 (10:10)
[2020-08-24] MEDS ORDERED: METOCLOPRAMIDE 5 MG/ML 2 ML VIAL IVP PRN (10:10)
[2020-08-24] MEDS ORDERED: IBUPROFEN 600 MG TAB PO PRN (10:10)
[2020-08-24] MEDS ORDERED: SIMETHICONE 80 MG CHEWABLE PO PRN (10:10)
[2020-08-24] MEDS ORDERED: diphenhydrAMINE 50 MG/ML 1 ML VIAL IVP PRN (10:10)
[2020-08-24] MEDS: KETOROLAC 15 MG/ML 1 ML VIAL IVP PRN (14:38)
[2020-08-24] MEDS: lisinopriL 5 MG TAB PO SCH (17:10)
[2020-08-24] MEDS ORDERED: SENNOSIDES-DOCUSATE SODIUM 1 EACH TAB PO SCH (21:00)
[2020-08-25] MEDS: KETOROLAC 15 MG/ML 1 ML VIAL IVP PRN (02:29)
[2020-08-25] MEDS: lisinopriL 5 MG TAB PO SCH (07:35)
--- NOTE | 2020-08-25 07:40 | P.PN ---
Subjective Progress Note Date: 08/25/20 the patient is in her first postoperative day from a robotic-assisted laparoscopic vaginal hysterectomy. She also had a posterior repair and a bladder neck suspension. She does well and has not had much pain. The Petersen catheter and vaginal packing have been removed. From a urologic standpoint if she voids adequately she can be discharged home. She has an appointment to see me in the office in one week. Postoperative instructions from a urologic standpoint been given. Objective - Vital Signs Vital signs: Vital Signs Temp 98.1 F 08/25/20 00:00 Pulse 76 08/25/20 00:00 Resp 16 08/25/20 00:00 BP 104/54 08/25/20 00:00 Pulse Ox 95 08/24/20 16:00 Intake & Output 08/24/20 08/25/20 08/25/20 18:59 06:59 18:59 Intake Total 1351 Output Total 2360 2300 Balance -1009 -2300 Weight 79.6 kg Intake: IV 1351 Output: Urine 2350 2300 Uretheral (Petersen) 700 450 Estimated Blood Loss 10
[2020-08-25 08:06] VITALS: BP 132/81; PULSE 80; RESP 15; TEMP 98
[2020-08-25 08:09] LABS: Basophils % (A) 0 %; Eosinophils % (A) 0 %; HCT 39.4 % (34.0-46.0); HGB 12.9 gm/dL (11.4-16.0); Lymphocytes # (A) 2.3 k/uL (1.0-4.8); Lymphocytes % (A) 24 %; MCH 31.6 pg (25.0-35.0); MCHC 32.8 g/dL (31.0-37.0); MCV 96.2 fL (80.0-100.0); Mean Platelet Volume 7.3; Monocytes # (A) 0.6 k/uL (0-1.0); Monocytes % (A) 6 %; Neutrophils # (A) 6.4 k/uL (1.3-7.7); Neutrophils % (A) 67 %; Platelet Count 204 k/uL (150-450); RBC 4.09 m/uL (3.80-5.40); RDW 12.7 % (11.5-15.5); WBC 9.5 k/uL (3.8-10.6)
--- NOTE | 2020-08-25 08:18 | P.DS ---
Providers Expected date of discharge: 08/25/20 Attending physician: Alondra Lebron Primary care physician: Kermit Gonzalezbal - Discharge Diagnosis(es) (1) Status post robot-assisted surgical procedure Current Visit: Yes Status: Acute Hospital Course: Pt presented for [facility] BSO with da milagro, TOT and posterior repair. She underwent these procedures without complication. Post operatively she is voiding and ambulating, tolerating reg diet and pain controlled with NSAIDs. She will be discharged home POD #1 in stable condition to follow up with me in 3 weeks. Plan - Discharge Summary Discharge Rx Participant: No New Discharge Prescriptions: New Ibuprofen [Motrin] 600 mg PO Q6HR PRN #30 tab PRN Reason: Mild Discomfort HYDROcodone/APAP 5-325MG [[place] 5-325] 1 each PO Q4HR PRN #18 tab PRN Reason: Pain Continue lisinopriL [Zestril] 5 mg PO DIRECTED PARoxetine [Paxil] 10 mg PO DAILY [place]-3 Fatty Acids [[place]-3] 1,000 mg PO DAILY No Action LORazepam [Ativan] 0.5 mg PO TID #90 tab Psyllium Husk (with Sugar) [Metamucil Powder] 1 dose PO DAILY Magnesium 200 mg PO DAILY Ground Flax 1 dose PO DAILY Multivitamins, Thera [Multivitamin (formulary)] 1 tab PO DAILY Discharge Medication List LORazepam [Ativan] 0.5 mg PO TID #90 tab 03/22/20 [Rx] Ground Flax 1 dose PO DAILY 08/19/20 [History] Magnesium 200 mg PO DAILY 08/19/20 [History] Multivitamins, Thera [Multivitamin (formulary)] 1 tab PO DAILY 08/19/20 [History] [place]-3 Fatty Acids [[place]-3] 1,000 mg PO DAILY 08/19/20 [History] PARoxetine [Paxil] 10 mg PO DAILY 08/19/20 [History] Psyllium Husk (with Sugar) [Metamucil Powder] 1 dose PO DAILY 08/19/20 [History] lisinopriL [Zestril] 5 mg PO DIRECTED 08/19/20 [History] HYDROcodone/APAP 5-325MG [[place] 5-325] 1 each PO Q4HR PRN #18 tab 08/25/20 [Rx] Ibuprofen [Motrin] 600 mg PO Q6HR PRN #30 tab 08/25/20 [Rx] Follow up Appointment(s)/Referral(s): Yo Oliveira MD [STAFF PHYSICIAN] - 1 Week Alondra Lebron DO [Doctor of Osteopathic Medicine] - 3 Weeks Discharge Disposition: HOME SELF-CARE
[2020-08-25] MEDS ORDERED: MAGNESIUM OXIDE 400 MG TAB PO SCH (09:00)
[2020-08-25] MEDS ORDERED: PARoxetine 10 MG TAB PO SCH (09:00)
== END 2020-08-25 10:35 | disposition home or self-care (01) ==
LOC: OR 05:51 → 4FBP 08:59 → OR 08-25 10:35
PROVIDERS: ATTEND Obstetrics & Gynecology
DX: N39.3 Stress incontinence (female) (male) (principal); N81.4 Uterovaginal prolapse, unspecified; D25.1 Intramural leiomyoma of uterus; N80.0 Endometriosis of uterus; N83.8 Other noninflammatory disorders of ovary, fallopian tube and broad ligament; N30.10 Interstitial cystitis (chronic) without hematuria; I10 Essential (primary) hypertension; Z87.19 Personal history of other diseases of the digestive system; R01.1 Cardiac murmur, unspecified; Z87.442 Personal history of urinary calculi; Z80.42 Family history of malignant neoplasm of prostate; R73.03 Prediabetes; F41.9 Anxiety disorder, unspecified; F32.9 Major depressive disorder, single episode, unspecified; Z98.890 Other specified postprocedural states; Z79.899 Other long term (current) drug therapy; Z88.1 Allergy status to other antibiotic agents; Z88.5 Allergy status to narcotic agent
CPT/HCPCS: 57288; 58571; S2900; 85025; 86850; 86900; 86901; 88307

== ENCOUNTER 2020-09-29 07:44 | Day surgery (SDC) | payer BC, SELFPAY ==
[2020-09-27 14:18] VITALS: BMI 27.0
[~2020-09-29 07:44] MED LIST changes: -DEXAMETHASONE SOD PHOSPHATE 10 MG/ML 1 ML VIAL IV ONE; -MIDAZOLAM 2 MG/2 ML VIAL IV PRN; -ONDANSETRON 4 MG/2 ML VIAL IVP ONE
[2020-09-29] MEDS: LACTATED RINGERS 1,000 ML IV SCH ×2 (08:00→08:19)
[2020-09-29 08:13] LABS: Glucose,Whole Blood 124 mg/dL (75-99)
[2020-09-29 08:14] VITALS: TEMP 98.5
--- NOTE | 2020-09-29 08:18 | P.GSHP ---
History of Present Illness H&P Date: 09/29/20 Chief Complaint: Screening colonoscopy This 55-year-old male presents today for screening colonoscopy. Patient denies any significant GI complaints. Past Medical History Past Medical History: Hypertension, Pneumonia Additional Past Medical History / Comment(s): diverticulitis, interstital cystitis, rectocele, hx heart murmur,kidney stones, "sluggish gallbladder", diet control diabetic,hx anemia, History of Any Multi-Drug Resistant Organisms: None Reported Past Surgical History: Bladder Surgery, Hysterectomy, Tonsillectomy Additional Past Surgical History / Comment(s): sinus surgery, vaginal cyst removed, exp.lap for endometriosis , hysterectomy with repair of prolapsed small bowel and bladder, Past Anesthesia/Blood Transfusion Reactions: No Reported Reaction Past Psychological History: Anxiety, Depression Smoking Status: Never smoker Past Alcohol Use History: Rare Past Drug Use History: None Reported - Past Family History Brother(s) Family Medical History: Cancer Medications and Allergies Home Medications Medication Instructions Recorded Confirmed Type LORazepam [Ativan] 0.5 mg PO TID #90 tab 03/22/20 09/27/20 Rx Multivitamins, Thera [Multivitamin 1 tab PO DAILY 08/19/20 09/27/20 History (formulary)] lisinopriL [Zestril] 5 mg PO DAILY 08/19/20 09/27/20 History Magnesium Tab 300 mg PO DAILY 09/27/20 09/27/20 History PARoxetine HCL [Paxil] 10 mg PO HS 09/27/20 09/27/20 History Allergies Allergy/AdvReac Type Severity Reaction Status Date / Time tetracycline Allergy Anaphylaxis Verified 09/27/20 14:04 codeine AdvReac Confusion/a Verified 09/27/20 14:04 ngry/violen t Surgical - Exam Vital Signs Temp Pulse Resp BP Pulse Ox 98.5 F 105 H 20 144/87 94 L 09/29/20 08:10 09/29/20 08:10 09/29/20 08:10 09/29/20 08:10 09/29/20 08:10 - General well developed, well nourished, no distress - Eyes PERRL - ENT normal pinna - Neck no masses - Respiratory normal expansion - Cardiovascular Rhythm: regular - Abdomen Abdomen: soft, non tender Results - Labs Abnormal Lab Results - Last 24 Hours (Table) 09/29/20 Range/Units 08:09 POC Glucose (mg/dL) 124 H (75-99) mg/dL Assessment and Plan Assessment: We'll perform screening colonoscopy.
[2020-09-29] MEDS ORDERED: PROPOFOL 10 MG/ML 20 ML VIAL IV ONE (08:21)
--- NOTE | 2020-09-29 08:34 | P.OP ---
Date of Procedure: 09/29/20 Preoperative Diagnosis: Screening Colonoscopy Postoperative Diagnosis: Normal colon Procedure(s) Performed: Colonoscopy Anesthesia: MAC Surgeon: Nito Zavaleta Pathology: none sent Condition: stable Disposition: PACU Description of Procedure: N PROCEDURE: The patient was placed on the endoscopy table in the lateral position. Digital rectal examination was performed which revealed no abnormalities. s. Flexible colonoscope was then placed in the patient's anus and passed throughout the entire colon. The ileocecal valve was visualized. The cecum, ascending, transverse, descending and sigmoid colon were normal. The rectum was normal as well. There were no masses, polyps or diverticula noted in the entire colon. SUMMARY OF FINDINGS: Normal colonoscopy.
[2020-09-29 08:55] VITALS: PULSE 96; RESP 16
[2020-09-29 09:46] VITALS: BP 148/96
== END 2020-09-29 09:10 | disposition home or self-care (01) ==
LOC: ORWHC2ENDO 07:44
PROVIDERS: ATTEND Surgery
DX: R19.4 Change in bowel habit (principal); I10 Essential (primary) hypertension; E11.9 Type 2 diabetes mellitus without complications; F41.9 Anxiety disorder, unspecified; N30.10 Interstitial cystitis (chronic) without hematuria; F32.9 Major depressive disorder, single episode, unspecified; Z88.5 Allergy status to narcotic agent; Z88.1 Allergy status to other antibiotic agents; Z90.710 Acquired absence of both cervix and uterus; Z79.899 Other long term (current) drug therapy; Z87.01 Personal history of pneumonia (recurrent); Z87.442 Personal history of urinary calculi; Z98.890 Other specified postprocedural states; Z80.9 Family history of malignant neoplasm, unspecified
CPT/HCPCS: 45378; J2704

== ENCOUNTER → 2020-10-14 | Outpatient (CLI) | payer BC ==
--- NOTE | 2020-10-14 09:44 | US ---
EXAMINATION TYPE: US gallbladder DATE OF EXAM: 10/14/2020 COMPARISON: CT September 25, 2019 CLINICAL HISTORY: R10.11 RUQ ABD PAIN. Pain EXAM MEASUREMENTS: Liver Length: 13.6 cm Gallbladder Wall: .2 cm CBD: .6 cm Right Kidney: 8.7 x 4.0 x 5.3 cm Pancreas: wnl Liver: wnl Gallbladder: wnl Evidence for sonographic Moon's sign: No CBD: Upper limits of normal Right Kidney: Lower pole obscured by overlying bowel gas. IMPRESSION: No shadowing mobile gallstones or ultrasound evidence for acute cholecystitis.
== END | disposition home or self-care (01) ==
LOC: RADUSWWP 08:57
PROVIDERS: ATTEND Internal Medicine
DX: R10.11 Right upper quadrant pain (principal); Z88.1 Allergy status to other antibiotic agents; Z88.5 Allergy status to narcotic agent
CPT/HCPCS: 76705

== ENCOUNTER → 2020-10-21 | Outpatient (CLI) | payer BC, SELFPAY ==
--- NOTE | 2020-10-24 11:50 | MM ---
Reason for exam: screening (asymptomatic). Last mammogram was performed 2 years and 6 months ago. History: Patient is postmenopausal. Physical Findings: A clinical breast exam by your physician is recommended on an annual basis and results should be correlated with mammographic findings. MG 3D Screening Mammo W/Cad Bilateral CC and MLO view(s) were taken. Prior study comparison: April 18, 2018, bilateral MG 3d screening mammo w/cad. November 22, 2016, bilateral MG screening mammo w CAD. The breast tissue is heterogeneously dense. This may lower the sensitivity of mammography. There is no discrete abnormality. No significant changes when compared with prior studies. ASSESSMENT: Negative, BI-RAD 1 RECOMMENDATION: Routine screening mammogram of both breasts in 1 year.
== END | disposition home or self-care (01) ==
LOC: RADMAMWWP 16:23
PROVIDERS: ATTEND Obstetrics & Gynecology
DX: Z12.31 Encounter for screening mammogram for malignant neoplasm of breast (principal)
CPT/HCPCS: 77063; 77067

== ENCOUNTER → 2021-09-28 | Outpatient (CLI) | payer BC ==
--- NOTE | 2021-09-28 17:56 | CT ---
EXAMINATION TYPE: CT urogram wo/w con DATE OF EXAM: 09/28/2021 COMPARISON: 09/25/2019 HISTORY: Flank pain, right. History of bladder suspension with reconstruction of bladder floor CT DLP: 3000 mGycm Automated exposure control for dose reduction was used. Contrast: None Technique: Axial images 5 mm thick sections. Reconstructed images in the coronal plane. Three-D recon structed images were performed by the technologist on a separate computer. FINDINGS: Kidneys: Kidneys ureter and bladder are evaluated with sequential images and delayed images. Three-D reconstructed images are reviewed. On precontrast imaging there is ar 0.1 cm calcification in the mid posterior left kidney. Series 3 image 62. No additional renal stones are evident. No masses or hydro nephrosis are evident. Tiny cortical renal cysts is on the right kidney. There may be small peripelvi c cysts present bilaterally. Ureters on the 4 minute delayed image are unremarkable. Renal collecting systems appear normal. Bladder is visualized appears normal. Other: Limited CT sections are obtained through the lung bases which are clear. CT ABDOMEN: Liver and spleen are unremarkable. Adrenal glands are normal. The abdominal aorta and inf erior vena cava are normal. Loops of bowel visualized are normal. The appendix is unremarkable. Pancr eas is normal. Gallbladder is visualized appears normal.Uterus and ovaries are not identified. IMPRESSION: 1. A 1 MM NONOBSTRUCTING RENAL STONE MID LEFT KIDNEY. 2. RENAL COLLECTING SYSTEM IS VISUALIZED APPEARS UNREMARKABLE.
== END ==
LOC: RADCTMAIN 08:51
PROVIDERS: ATTEND Urology
DX: N20.0 Calculus of kidney (principal); R10.31 Right lower quadrant pain
CPT/HCPCS: 74178; 74400; Q9967

== ENCOUNTER → 2021-10-23 | Outpatient (CLI) | payer BC ==
--- NOTE | 2021-10-25 12:08 | MM ---
Reason for exam: screening (asymptomatic). Last mammogram was performed 1 year ago. History: Patient is postmenopausal. Taking estrogen for 6 months. Taking progesterone for 6 months. Physical Findings: A clinical breast exam by your physician is recommended on an annual basis and results should be correlated with mammographic findings. MG 3D Screening Mammo W/Cad Bilateral CC and MLO view(s) were taken. Prior study comparison: October 21, 2020, bilateral MG 3d screening mammo w/cad. April 18, 2018, bilateral MG 3d screening mammo w/cad. The breast tissue is heterogeneously dense. This may lower the sensitivity of mammography. Possible obscured irregular asymmetric density lateral left CC view on 3D images. Further evaluation recommended. ASSESSMENT: Incomplete: need additional imaging evaluation, BI-RAD 0 RECOMMENDATION: Special view mammogram of the left breast. (3D) If lesion persists on supplemental views, image directed ultrasound is recommended. [facility] will attempt to contact patient to return for supplemental views and ultrasound if indicated.
== END | disposition home or self-care (01) ==
LOC: RADMAMWWP 16:42
PROVIDERS: ATTEND Obstetrics & Gynecology
DX: Z12.31 Encounter for screening mammogram for malignant neoplasm of breast (principal); Z78.0 Asymptomatic menopausal state
CPT/HCPCS: 77063; 77067

== ENCOUNTER → 2021-11-22 | Outpatient (CLI) | payer BC ==
--- NOTE | 2021-11-23 12:52 | MM ---
Reason for exam: additional evaluation requested from abnormal screening. Last mammogram was performed 1 month ago. History: Patient is postmenopausal. Taking estrogen for 6 months. Taking progesterone for 6 months. Taking other hormone for 6 months. Physical Findings: Nurse did not find any significant physical abnormalities on exam. MG 3D Work Up W/Cad LT Spot compression CC, spot compression MLO, CCRL, and LM view(s) were taken of the left breast. Prior study comparison: October 23, 2021, bilateral MG 3d screening mammo w/cad. October 21, 2020, bilateral MG 3d screening mammo w/cad. The breast tissue is heterogeneously dense. This may lower the sensitivity of mammography. There is chronic nodularity in the left breast, stable or decreased in size. No distinct lesion persists in the left breast on additional views. These results were verbally communicated with the patient and result sheet given to the patient on 11/22/21. ASSESSMENT: Negative, BI-RAD 1 RECOMMENDATION: Return to routine screening mammogram schedule for both breasts.
== END | disposition home or self-care (01) ==
LOC: RADMAMWWP 09:01
PROVIDERS: ATTEND Obstetrics & Gynecology
DX: R92.8 Other abnormal and inconclusive findings on diagnostic imaging of breast (principal); Z78.0 Asymptomatic menopausal state
CPT/HCPCS: 77061; 77065

== ENCOUNTER → 2022-10-02 | Outpatient (CLI) | payer BC ==
[2022-10-02 14:18] LABS: Basophils # (A) 0.02 X 10*3/uL (0.00-0.10); Basophils % (A) 0.4 %; Eosinophils # (A) 0.07 X 10*3/uL (0.04-0.35); Eosinophils % (A) 1.4 %; HCT 43.4 % (37.2-46.3); HGB 14.4 g/dL (12.0-15.0); Immature Grans, Automated 0.2 %; Lymphocytes # (A) 1.46 X 10*3/uL (0.90-5.00); Lymphocytes % (A) 29.1 %; MCH 31.4 pg (27.0-32.0); MCHC 33.2 g/dL (32.0-37.0); MCV 94.8 fL (80.0-97.0); Mean Platelet Volume 11.5 fL (9.5-12.2); Monocytes # (A) 0.44 X 10*3/uL (0.20-1.00); Monocytes % (A) 8.8 %; NRBC Per 100 WBC 0 /100 WBCS (0.0-0.0); Neutrophils # (A) 3.01 X 10*3/uL (1.80-7.70); Neutrophils % (A) 60.1 %; Platelet Count 197 X 10*3/uL (140-440); RBC 4.58 X 10*6/uL (4.10-5.20); RDW 12.5 % (11.5-14.5); WBC 5.01 X 10*3/uL (4.50-10.00)
== END | disposition home or self-care (01) ==
LOC: LABPAT 07:51
PROVIDERS: ATTEND Obstetrics & Gynecology
DX: Z01.812 Encounter for preprocedural laboratory examination (principal)
CPT/HCPCS: 85025; 93005

== ENCOUNTER 2022-10-11 08:06 | Day surgery (SDC) | payer BC ==
--- NOTE | 2022-10-10 15:07 | P.HPOB ---
History of Present Illness H&P Date: 10/10/22 Chief Complaint: pelvic pain, cyst 57 year old presents for diagnostic laparoscopy using davinci, removal of pelvic cyst, possible laparotomy. She has had a lot of pelvic pain and has been diagnosed with pudendal nerve dysfunction. CT and US have shown a 2.6cm cyst on the right adnexa near but separate from the bladder. Review of Systems All systems: negative Constitutional: Denies chills, Denies fever Eyes: denies blurred vision, denies pain Ears, nose, mouth and throat: Denies headache, Denies sore throat Cardiovascular: Denies chest pain, Denies shortness of breath Respiratory: Denies cough Gastrointestinal: Denies abdominal pain, Denies diarrhea, Denies nausea, Denies vomiting Genitourinary: Denies dysuria, Denies hematuria Musculoskeletal: Denies myalgias Integumentary: Denies pruritus, Denies rash Neurological: Denies numbness, Denies weakness Psychiatric: Denies anxiety, Denies depression Endocrine: Denies fatigue, Denies weight change Past Medical History Past Medical History: Diabetes Mellitus, Hypertension, Pneumonia Additional Past Medical History / Comment(s): Diverticulitis, interstital cystitis, rectocele, hx heart murmur, kidney stones, "sluggish gallbladder", diet control diabetic,hx anemia, History of Any Multi-Drug Resistant Organisms: None Reported Past Surgical History: Bladder Surgery, Hysterectomy, Tonsillectomy Additional Past Surgical History / Comment(s): sinus surgery, vaginal cyst removed, exp.lap for endometriosis , hysterectomy with repair of prolapsed small bowel and bladder (SLING). GETTING PAIN INJECTIONS. Past Anesthesia/Blood Transfusion Reactions: No Reported Reaction Past Psychological History: Anxiety, Depression Smoking Status: Never smoker Past Alcohol Use History: Rare Past Drug Use History: None Reported - Past Family History Brother(s) Family Medical History: Cancer Medications and Allergies Home Medications Medication Instructions Recorded Confirmed Type LORazepam [Ativan] 0.5 mg PO TID #90 tab 03/22/20 10/08/22 Rx lisinopriL [Zestril] 10 mg PO QAM 08/19/20 10/08/22 History [id number] 1 supp RECTAL HS 10/08/22 History Estrogen 8% Progesteron 20% Ta 1 tab PO DAILY 10/08/22 History Gabapentin [Neurontin] 100 mg PO TID 10/08/22 10/08/22 History Magnesium 1 tab PO DAILY 10/08/22 10/08/22 History Pyridoxine [Vitamin B-6] 1 tab PO DAILY 10/08/22 10/08/22 History Allergies Allergy/AdvReac Type Severity Reaction Status Date / Time tetracycline Allergy Anaphylaxis Verified 10/08/22 12:14 codeine AdvReac Confusion/a Verified 10/08/22 12:14 ngry/violen t Exam Osteopathic Statement: *. No significant issues noted on an osteopathic structural exam other than those noted in the History and Physical/Consult. Heart: RRR Lungs: CTAB Abdomen: soft, nontender Extremeties: neg viki's sign Assessment and Plan (1) Pelvic pain Status: Acute Code(s): R10.2 - PELVIC AND PERINEAL PAIN SNOMED Code(s): 25425741 (2) Pelvic cyst Status: Acute Code(s): RER4863 - SNOMED Code(s): 235641815 Plan: 1. diagnostic laparoscopy using da milagro and possible removal of pelvic cyst, possible laparotomy
[~2022-10-11 08:06] MED LIST changes: +DEXAMETHASONE SOD PHOSPHATE 4 MG/ML 1 ML VIAL IV ONE; +HYDROmorphone 0.5 MG/0.5 ML SYRINGE IVP PRN; +LACTATED RINGERS 1,000 ML IV SCH; +MIDAZOLAM 2 MG/2 ML VIAL IV PRN; +ONDANSETRON 4 MG/2 ML VIAL IVP ONE; +Pre Op ABX Message 1 EACH MISC MISCELLANE ONE
[2022-10-11 08:43] VITALS: TEMP 97.2
[2022-10-11 08:58] LABS: Glucose,Whole Blood 116 mg/dL (70-110)
[2022-10-11] MEDS ORDERED: KETOROLAC 15 MG/ML 1 ML VIAL ONE (09:31)
[2022-10-11] MEDS ORDERED: NEOSTIGMINE 1 MG/ML 10 ML VIAL ONE (09:31)
[2022-10-11] MEDS ORDERED: LIDOCAINE 2% INJ 20 MG/ML (2 ML VIAL) ONE (09:31)
[2022-10-11] MEDS ORDERED: MIDAZOLAM 2 MG/2 ML VIAL ONE (09:31)
[2022-10-11] MEDS ORDERED: ROCURONIUM 10 MG/ML (5 ML VIAL) IV ONE (09:31)
[2022-10-11] MEDS ORDERED: PHENYLEPHRINE-0.9% NACL SYG 1,000 MCG/10 ML SYRINGE ONE (09:31)
[2022-10-11] MEDS ORDERED: GLYCOPYRROLATE 0.2 MG/ML 2 ML VIAL ONE (09:31)
[2022-10-11] MEDS ORDERED: PROPOFOL 10 MG/ML 20 ML VIAL IV ONE (09:31)
[2022-10-11] MEDS ORDERED: fentaNYL (PF) 50 MCG/ML 2 ML AMP ONE (09:31)
[2022-10-11] MEDS ORDERED: BUPIVACAIN-EPI 0.25%-1:200,000 30 ML VIAL SQ ONE (10:03)
[2022-10-11] MEDS ORDERED: LACTATED RINGERS 1,000 ML IV ONE (10:38)
--- NOTE | 2022-10-11 10:57 | P.OP ---
Date of Procedure: 10/11/22 Preoperative Diagnosis: 1. pelvic pain 2. pelvic cyst Postoperative Diagnosis: pelvic pain Procedure(s) Performed: Diagnostic laparoscopy with da Orin, exploration of right adnexa with removal of a portion of peritoneum. Anesthesia: BETTINAA Surgeon: Alondra Lebron Estimated Blood Loss (ml): 3 IV fluids (ml): 300 Urine output (ml): 100 Pathology: none sent (Piece of peritoneum from right adnexa) Condition: stable Disposition: PACU Description of Procedure: Patient taken the operating room where general anesthesia was obtained without difficulty. She is prepped and draped in normal sterile fashion dorsal lithotomy position, legs placed in the Jacob stirrups. Pelvic exam was completed. Normal pelvis was felt no scar tissue in the obturator foramen that I could feel no cystic structures in the pelvis. Petersen catheter was placed and a sponge stick was placed in the vagina. Attention was then turned to the abdomen and gloves were changed. A 5 mm supraumbilical incision was made the scalpel and a 5 mm optical trocar was placed under direct visualization. 10 cm to the right of this and 2 cm down a 5 mm incision was made and 8 mm da Orin port was placed under direct visualization. Same measurements on the opposite side of the patient's abdomen, the 5 mm incision was made and 8 mm da Orin port was placed under direct visualization. The 5 mm optical trocar was then replaced with the 8 mm da Orin camera port. The robot was docked on patient's right side. The camera was introduced and then the monopolar curved scissor and [place] bipolar placed under direct visualization. I broke scrub and went to the physician console. Survey of the pelvis revealed an absent uterus and ovaries. It looks like the patient did feel pretty well from the surgery. There is possibly an area on the right side that could be a cystic structure beneath the peritoneum. I used the Maritza bipolar to lift and then the monopolar curved scissors to open this area. I didn't see the ureter peristalsing just beneath were was operating. I opened this area and underscore the peritoneum, removed a segment to send to pathology. I did open this area up and dissected around the ureter and right side of the bladder. I did not note any cystic structures here. Hemostasis was achieved. All instruments removed from the pelvis and abdomen. The incisions were closed with 4-0 Vicryl subcuticular fashion. Patient tolerated procedure well. Sponge and instrument counts correct 2. She was taken to recovery in stable condition.
[2022-10-11] MEDS ORDERED: KETOROLAC 15 MG/ML 1 ML VIAL IVP ONE (11:04)
[2022-10-11 11:53] VITALS: RESP 18
[2022-10-11] MEDS ORDERED: HYDROcodone/APAP 5-325MG 1 EACH TAB ONE (12:03)
[2022-10-11 12:49] VITALS: BP 115/85; PULSE 85
== END 2022-10-11 13:12 | disposition home or self-care (01) ==
LOC: OR 08:06
PROVIDERS: ATTEND Obstetrics & Gynecology
DX: K66.8 Other specified disorders of peritoneum (principal); N94.89 Other specified conditions associated with female genital organs and menstrual cycle; I10 Essential (primary) hypertension; E11.9 Type 2 diabetes mellitus without complications; J18.9 Pneumonia, unspecified organism; F10.10 Alcohol abuse, uncomplicated; F41.9 Anxiety disorder, unspecified; F32.A Depression, unspecified; Z90.89 Acquired absence of other organs; Z90.710 Acquired absence of both cervix and uterus; Z88.1 Allergy status to other antibiotic agents; Z88.5 Allergy status to narcotic agent; Z79.899 Other long term (current) drug therapy; Z79.84 Long term (current) use of oral hypoglycemic drugs; Z80.9 Family history of malignant neoplasm, unspecified
CPT/HCPCS: 49320; J2250; J1100; J2710; J2405; J3010; J1885; J2370; J2704; J1170; J2001; 88305

== ENCOUNTER 2023-03-08 06:20 | Day surgery (SDC) | payer BC ==
[2023-03-05 18:05] VITALS: BMI 25.4
[~2023-03-08 06:20] MED LIST changes: +HEPARIN SODIUM,PORCINE/PF 5,000 UNIT/0.5 ML SYRINGE SQ PRN; -HYDROmorphone 0.5 MG/0.5 ML SYRINGE IVP PRN; -LIDOCAINE 1% (10MG/ML) FOR IV START INTRADERMA PRN; +SCOPOLAMINE 1 MG/72 HR PATCH TRANSDERM ONE
[2023-03-08] MEDS ORDERED: fentaNYL (PF) 50 MCG/ML 2 ML AMP IV PRN (07:00)
[2023-03-08] MEDS ORDERED: PHENYLEPHRINE-0.9% NACL SYG 1,000 MCG/10 ML SYRINGE ONE (07:25)
[2023-03-08] MEDS ORDERED: PROPOFOL 10 MG/ML 20 ML VIAL IV ONE (07:25)
[2023-03-08] MEDS ORDERED: ePHEDrine 50 MG/ML 1 ML VIAL ONE (07:25)
[2023-03-08] MEDS ORDERED: SUCCINYLCHOLINE CHLORIDE 200 MG/10 ML VIAL IV ONE (07:25)
[2023-03-08] MEDS ORDERED: LIDOCAINE 2% INJ 20 MG/ML (2 ML VIAL) ONE (07:25)
[2023-03-08] MEDS ORDERED: MIDAZOLAM 2 MG/2 ML VIAL ONE (07:25)
[2023-03-08] MEDS ORDERED: fentaNYL (PF) 50 MCG/ML 2 ML AMP ONE (07:25)
[2023-03-08 07:27] LABS: Glucose,Whole Blood 107 mg/dL (70-110)
[2023-03-08] MEDS ORDERED: HEPARIN SODIUM,PORCINE/PF 5,000 UNIT/0.5 ML SYRINGE SQ PRN (07:32)
--- NOTE | 2023-03-08 07:32 | P.GSHP ---
History of Present Illness H&P Date: 03/08/23 CHIEF COMPLAINT: Back mass HISTORY OF PRESENT ILLNESS: The patient is a 57 year-old female with history of mass along the mid back. She presents today for right lower back mass excision. PAST MEDICAL HISTORY: Please see list. PAST SURGICAL HISTORY: Please see list. MEDICATIONS: Please see list. ALLERGIES: Please see list. SOCIAL HISTORY: Please see list. FAMILY HISTORY: No reports of Crohn disease or ulcerative colitis. REVIEW OF ORGAN SYSTEMS: CONSTITUTIONAL: No reports of fevers or chills. GI: Denies any blood in stools or constipation. PHYSICAL EXAM: VITAL SIGNS: Stable Musculoskeletal: No clubbing cyanosis or edema SKIN: Right lower back mass 6 cm GENERAL: Well developed and in no acute distress. Pleasant. HEENT: No sclera icterus. Extraocular movements grossly intact. Moist buccal mucosa. Head is atraumatic, normocephalic. Hears conversational speech. No nasal drainage. NECK: Supple without lymphadenopathy. No JV distention. CHEST: Non-labored respirations and equal bilateral excursions. CARDIOVASCULAR: Regular rate and rhythm. Palpable 2+ radial pulses. ABDOMEN: Soft. Non-tender. Nondistended. NEUROLOGIC: No focal or lateralizing signs. PSYCH: Appropriate affect. Alert and oriented to person, place and time. ASSESSMENT: 1. Right lower back mass PLAN: 1. Will proceed of excision of subcutaneous tumor along the back. 2. DVT prophylaxis. 3. Antibiotic prophylaxis. 4. Time of recovery, at least 2 week. Past Medical History Past Medical History: Hypertension, Pneumonia Additional Past Medical History / Comment(s): HEART MURMUR. ANEMIA. History of Any Multi-Drug Resistant Organisms: None Reported Past Surgical History: Bladder Surgery, Hysterectomy, Tonsillectomy Additional Past Surgical History / Comment(s): sinus surgery, vaginal cyst removed, exp.lap for endometriosis , hysterectomy with repair of prolapsed small bowel and bladder, pelvic floor reconstruction Past Anesthesia/Blood Transfusion Reactions: No Reported Reaction Past Psychological History: No Psychological Hx Reported Smoking Status: Never smoker Past Alcohol Use History: Rare Past Drug Use History: None Reported - Past Family History Brother(s) Family Medical History: Cancer Medications and Allergies Home Medications Medication Instructions Recorded Confirmed Type lisinopriL [Zestril] 10 mg PO QAM 08/19/20 03/08/23 History [id number] 1 supp RECTAL HS 10/08/22 03/08/23 History Magnesium 1 tab PO DAILY 10/08/22 03/08/23 History Pyridoxine [Vitamin B-6] 1 tab PO DAILY 10/08/22 03/08/23 History Nf-Bioidentical Hormone Supp. 1 tab PO DAILY 03/05/23 03/08/23 History Allergies Allergy/AdvReac Type Severity Reaction Status Date / Time tetracycline Allergy Anaphylaxis Verified 03/08/23 06:50 codeine AdvReac Confusion/a Verified 03/08/23 06:50 ngry/violen t
[2023-03-08] MEDS ORDERED: BUPIVACAIN-EPI 0.25%-1:200,000 30 ML VIAL SQ ONE (08:23)
[2023-03-08] MEDS ORDERED: LACTATED RINGERS 1,000 ML IV ONE (08:48)
[2023-03-08 09:23] VITALS: TEMP 97
[2023-03-08 09:38] VITALS: RESP 16
--- NOTE | 2023-03-08 10:26 | P.OP ---
Date of Procedure: 03/08/23 Description of Procedure: Excision of sub-fascial right lower back mass 9 x 6 cm multiloculated complex with complex closure. Blood loss 30 mL Plan - Discharge Summary Discharge Rx Participant: No New Discharge Prescriptions: New Ibuprofen [Motrin] 600 mg PO Q8HR PRN #30 tab PRN Reason: Pain Acetaminophen Tab [Tylenol Tab] 1,000 mg PO Q6HR PRN #30 tablet PRN Reason: Pain Continue lisinopriL [Zestril] 10 mg PO QAM [id number] 1 supp RECTAL HS Pyridoxine [Vitamin B-6] 1 tab PO DAILY Magnesium 1 tab PO DAILY Nf-Bioidentical Hormone Supp. 1 tab PO DAILY Discharge Medication List lisinopriL [Zestril] 10 mg PO QAM 08/19/20 [History] [id number] 1 supp RECTAL HS 10/08/22 [History] Magnesium 1 tab PO DAILY 10/08/22 [History] Pyridoxine [Vitamin B-6] 1 tab PO DAILY 10/08/22 [History] Nf-Bioidentical Hormone Supp. 1 tab PO DAILY 03/05/23 [History] Acetaminophen Tab [Tylenol Tab] 1,000 mg PO Q6HR PRN #30 tablet 03/08/23 [Rx] Ibuprofen [Motrin] 600 mg PO Q8HR PRN #30 tab 03/08/23 [Rx] Follow up Appointment(s)/Referral(s): Amber Morejon MD [STAFF PHYSICIAN] - 03/12/23 4:00 pm Patient Instructions/Handouts: *[facility] - (Anesthesia) Discharge Instructions Outpatient Surgery, *[facility] - Managing Your Pain After Surgery Without Opioids Discharge Disposition: HOME SELF-CARE
[2023-03-08] MEDS ORDERED: KETOROLAC 15 MG/ML 1 ML VIAL IVP PRN (10:27)
[2023-03-08 10:54] VITALS: BP 113/70; PULSE 82
== END 2023-03-08 10:55 | disposition home or self-care (01) ==
LOC: OR 06:20
PROVIDERS: ATTEND Surgery Plastic and Reconstructive Surgery
DX: D17.1 Benign lipomatous neoplasm of skin and subcutaneous tissue of trunk (principal); I10 Essential (primary) hypertension; Z90.710 Acquired absence of both cervix and uterus; Z90.89 Acquired absence of other organs; Z86.59 Personal history of other mental and behavioral disorders; Z88.5 Allergy status to narcotic agent; Z79.899 Other long term (current) drug therapy
CPT/HCPCS: 21933; J2250; J0330; J0690; J2405; J3010; J2370; J2704; J1644; J2001; 88304